=== PATIENT | male | born 1940 | race Caucasian/White ===

== ENCOUNTER → 2016-11-03 | Outpatient (CLI) | payer MEDICARE ==
[~2016-11-03] MED LIST: ABILIFY; ARIP5TAB13 PO; ASP325TEC PO; ASPI-587 PO; CARB1TAB17 PO; CARB1TAB5 PO; CEFD300C PO; CITA20TA12 PO; CITA20TA4 PO; CLOB15CR2 TP; CYAN100053 IM; CYANOCOBALAMIN; EXELON PATCH TD; GLIP10TA13 PO; GLIP5TAB13 PO; GLIP5TAB26 PO; HYDR25SU5 PR; INSR1U SC; INSU100V5 SQ; LEVE1U SQ; LEVO750T24 PO; LISI-594 PO; LORA1TAB PO; MAG30ORA2 PO; MAGN400O7 PO; MENT118G TP; MOME15OI2 TP; MOME45CR19 TOP; MTF500T PO; ONDN4T PO; PANT40TA2 PO; PANT40TA3 PO; POTA10CA43 PO; Prednisone PO; SINEMET; TAMS0.4C2 PO; TMSL.4C PO; TR1C15 TOP; TR1C15 TP; TRIA15CR TP; VENL150C98 PO; VENL75CA PO; WALKER; [UNRECOGNIZED DRUG - OTHER] TD; milk of magnesia PO
--- OUTSIDE RECORDS SUMMARY | 2016-11-03 17:30 | XMS REPORT | Continuity of Care Document ---
Author Author [facility] Organization [facility] Address Unknown Phone Unavailable Care Team Providers Care Autism Specialist Name Role Phone RickyRafael funk PCP [phone] Source Comments Some departments are not documenting in the electronic medical record. If you do not see the information that you expected, contact Release of Information in the Health Information Management department at [phone] for further assistance in locating additional records.[facility] Active Allergies and Adverse Reactions No Known Allergies Current Medications Prescription Sig. Disp. Refills Start End Date Status Date tamsulosin (FLOMAX) 0.4 Take 0.4 mg by mouth Active mg capsule daily. aspirin 325 mg tablet Take 325 mg by mouth Active daily. citalopram (CELEXA) 20 mg Take 20 mg by mouth Active tablet daily. lisinopril (PRINIVIL; Take 5 mg by mouth daily. Active ZESTRIL) 5 mg tablet insulin detemir(+) Inject 10 Units into Active (LEVEMIR) 100 unit/mL area(s) as directed soln daily. other medication 1 Dose. Psorcin cream to Active psorisis daily Active Problems Problem Noted Date Cellulitis 07/08/2010 Acute kidney injury (nontraumatic) (HCC) 07/08/2010 Psoriasis 07/08/2010 Immunizations Name Dates Previously Given Next Due FLU VACCINE >3YO 07/04/2010 (Preservative Free) Pneumococcal Vaccine 07/04/2010 (23-Rhonda Adult) Social History Tobacco Use Types Packs/Day Years Used Date Former Smoker Cigarettes 2 Quit: 02/19/2009 Smokeless Tobacco: Never Used Alcohol Use Drinks/Week oz/Week Comments No Last Filed Vital Signs Vital Sign Reading Time Taken Blood Pressure 123/68 03/03/2014 8:28 AM CDT Pulse 65 03/03/2014 8:28 AM CDT Temperature 36.8 C (98.2 F) 07/08/2010 12:00 PM CDT Respiratory Rate - - Height 1.829 m (6') 03/03/2014 8:28 AM CDT Weight 81.647 kg (180 lb) 03/03/2014 8:28 AM CDT Body Mass Index 24.41 03/03/2014 8:28 AM CDT Oxygen Saturation 94% 07/08/2010 12:00 PM CDT Plan of Care Health Maintenance Due Date Last Done Comments Physical (Comprehensive) 02/04/1947 Exam Pertussis Vaccine 02/04/1952 Tetanus Vaccine 1958 Colorectal Cancer 1991 Screening Shingles Vaccine 2001 Prevnar/Pneumovax (#2) 07/04/2011 07/04/2010 Influenza Vaccine 05/31/2016 07/04/2010 Results from Last 3 Months Not on file
[2016-11-03 17:57] LABS: BILIRUBIN,URINE NEGATIVE (NEGATIVE); KETONES,URINE NEGATIVE (NEGATIVE); LEUKOCYTE ESTERASE ,URINE NEGATIVE (NEGATIVE); NITRITE,URINE NEGATIVE (NEGATIVE); PH,URINE 6 (5-9); PROTEIN,URINE NEGATIVE (NEGATIVE); UROBILINOGEN,URINE NORMAL (NORMAL)
[2016-11-03 18:11] LABS: SQUAMOUS EPITHELIAL CELL,UR RARE /HPF
== END ==
PROVIDERS: ATTEND Family Medicine
DX: N18.9 Chronic kidney disease, unspecified (principal)
CPT/HCPCS: 81000

== ENCOUNTER 2017-04-26 14:45 | Emergency (ER) | payer MEDICARE ==
[~2017-04-26] VITALS: Ht 182.9 cm; Wt 81.6 kg
[2017-04-26] MEDS ORDERED: LIDOCAINE UROJET 2% GEL 10 ML PKG TOP ONE (15:00)
[2017-04-26 15:15] LABS: BASOPHILS # (AUTO) 0.1 10^3/uL (0.0-0.1); BASOPHILS % (AUTO) 0 % (0-10); EOSINOPHILS # (AUTO) 0.1 10^3/uL (0.0-0.3); EOSINOPHILS % (AUTO) 0 % (0-10); LYMPHOCYTES # (AUTO) 1.6 X 10^3 (1.0-4.0); LYMPHOCYTES % (AUTO) 7 % (12-44); MEAN CORPUSCULAR HEMOGLOBIN 28 PG (25-34); MEAN CORPUSCULAR HGB CONC 32 G/DL (32-36); MEAN CORPUSCULAR VOLUME 87 FL (80-99); MEAN PLATELET VOLUME 9.7 FL (7.4-10.4); MONOCYTES % (AUTO) 13 % (0-12); NEUTROPHILS # (AUTO) 18.1 X 10^3 (1.8-7.8); NEUTROPHILS % (AUTO) 79 % (42-75); PLATELET COUNT 417 10^3/uL (130-400); RED BLOOD COUNT 5.17 10^6/uL (4.35-5.85); RED CELL DISTRIBUTION WIDTH 16.3 % (10.0-14.5); WHITE BLOOD COUNT 22.8 10^3/uL (4.3-11.0)
[2017-04-26 15:26] LABS: BILIRUBIN,URINE NEGATIVE (NEGATIVE); KETONES,URINE 1+ (NEGATIVE); LEUKOCYTE ESTERASE ,URINE 3+ (NEGATIVE); NITRITE,URINE NEGATIVE (NEGATIVE); PH,URINE 8 (5-9); PROTEIN,URINE 4+ (NEGATIVE); UROBILINOGEN,URINE NORMAL (NORMAL)
[2017-04-26] MEDS ORDERED: cefTRIAXone INJECTION 1,000 MG in NS (IVPB) 50 ML IV ONE (15:30)
[2017-04-26 15:32] LABS: ANION GAP 8 MMOL/L (5-14); BLOOD UREA NITROGEN 16 MG/DL (7-18); BUN/CREATININE RATIO 14; CALCIUM 9.4 MG/DL (8.5-10.1); CARBON DIOXIDE 27 MMOL/L (21-32); CHLORIDE 100 MMOL/L (98-107); CREATININE SERUM 1.11 MG/DL (0.60-1.30); GFR ESTIMATED > 60; GLUCOSE 292 MG/DL (70-105); POTASSIUM 4.1 MMOL/L (3.6-5.0); SODIUM 135 MMOL/L (135-145)
--- NOTE | 2017-04-26 15:33 | ED GU-Male ---
General Chief Complaint: -Male Stated Complaint: URINARY PROBLEMS Nursing Triage Note: BROUGHT HERE FROM [facility] AFTER STAFF NOTICING BLOOD CLOTS WHEN HE PEED. Source: patient, [facility] records Exam Limitations: no limitations History of Present Illness Time seen by provider: 15:31 Initial Comments 77-year-old male patient of Dr. Colin presents to the emergency room for [facility] with reports of blood clots noted in his urine by [facility] staff. No fevers chills or complaints of pain. This just began today. Timing/Duration: constant Severity/Quality: moderate Radiation: none Activities at Onset: none Prior Genitourinary Problems: none Associated Symptoms: dysuria, No fever/chills, No nausea/vomiting Allergies and Home Medications Allergies Coded Allergies: No Known Drug Allergies (Verified , 01/19/16) Home Medications Carbidopa/Levodopa 1 Each Tablet, 1 TAB PO BID, (Reported) Cyanocobalamin 1,000 Mcg/Ml Vial, 1,000 MCG IM MONTHLY , (Reported) RECEIVES ON THE OF EACH MONTH Glipizide 5 Mg Tablet, 5 MG PO DAILY, (Reported) Mag Hydrox/Al Hydrox/Simeth 30 Ml Oral.susp, 30 ML PO Q6H PRN for STOMACH UPSET, (Reported) Magnesium Hydroxide 400 Mg/5 Ml Oral.susp, 30 ML PO DAILY PRN for CONSTIPATION, (Reported) Mometasone Furoate 45 Gm Cream..g., TOP BID, (Reported) APPLY TO FACE, ELBOWS, BUTTOCKS EVERY SHIFT Pantoprazole Sodium 40 Mg Tablet.dr, 40 MG PO DAILY, (Reported) Tamsulosin HCl 0.4 Mg Cap.er.24h, 0.4 MG PO HS, (Reported) Triamcinolone Acet 15 Gm Oint, TP BID PRN for DRY SKIN, (Reported) Venlafaxine HCl 37.5 Mg Cap.er.24h, 37.5 MG PO DAILY, (Reported) Constitutional: see HPI, No chills, No fever EENTM: see HPI Respiratory: no symptoms reported Cardiovascular: no symptoms reported Genitourinary: see HPI, hematuria Musculoskeletal: no symptoms reported Skin: no symptoms reported Psychiatric/Neurological: No Symptoms Reported Endocrine: No Symptoms Reported Past Josvpwe-Bramec-Gpsdyd Hx Patient Social History Alcohol Use: Denies Use Recreational Drug Use: No Smoking Status: Unknown if Ever Smoked Former Smoker/When Quit: Sep 30, 2009 Recent Foreign Travel: No Contact w/Someone Who Travel: No Recent Infectious Disease Expo: No Recent Hopitalizations: Yes (PNEUMONIA) Immunizations Up To Date Tetanus Booster (TDap): More than 5yrs Date of Pneumonia Vaccine: Jan 07, 2010 Date of Influenza Vaccine: Jun 16, 2015 Seasonal Allergies Seasonal Allergies: No Surgeries HX Surgeries: Yes (LEFT KNEE SURGERY) Surgeries: Orthopedic, Tonsillectomy Respiratory Hx Respiratory Disorders: No Cardiovascular Hx Cardiac Disorders: Yes Cardiac Disorders: Coronary Artery Disease, Heart Attack, Hypertension Neurological Hx Neurological Disorders: Yes (HYDROCEPHALIS) Neurological Disorders: Dementia, Parkinson's Disease Reproductive System Hx Reproductive Disorders: No Genitourinary Hx Genitourinary Disorders: Yes (CHRONIC KIDNEY DISEASE; PROSTATE) Genitourinary Disorders: Prostate Problems, Renal Failure Gastrointestinal Hx Gastrointestinal Disorders: Yes (CHRONIC CONSTIPATION) Gastrointestinal Disorders: Gastrointestinal Bleed, Chronic Constipation Musculoskeletal Hx Musculoskeletal Disorders: Yes (POOR MOBILITY-ESSENTIALLY NON-AMBULATORY; GENERALIZED WEAKNESS; FALLS) Musculoskeletal Disorders: Arthritis, Contracture Endocrine Hx Endocrine Disorders: Yes Endocrine Disorders: Diabetes, Insulin dep HEENT HX ENT Disorders: Yes HEENT Disorders: Cataract Loss of Vision: Denies Hearing Impairment: Denies Cancer Hx Cancer: Yes Cancer: Prostate Psychosocial Hx Psychiatric Problems: Yes Behavioral Health Disorders: Depression Integumentary HX Skin/Integumentary Disorder: Yes Skin/Integumentary Disorders: Psoriasis Blood Transfusions Hx Blood Disorders: No Family Medical History Significant Family History: No Pertinent Family Hx Family Medial History: Cataract 03 FATHER Family history: Cardiovascular disease 09 BROTHER (OPEN HEART SURGERY AND UNSURE WHAT HE FROM OTHER THEN HEART PROBLEMS) Family history: Hypertension 03 FATHER No Family History of: Abdominal aortic aneurysm Steven's disease Alcoholism Aphasia Cancer Cancer of colon Chest pain Congenital heart disease Congestive heart failure Cystic fibrosis Dementia Dysphagia Family history: Allergy Family history: Alzheimer's disease Family history: Arthritis Family history: Asthma Family history: Breast disease Family history: Coronary thrombosis Family history: Diabetes mellitus Family history: Gastrointestinal disease Family history: Glaucoma Family history: Osteoporosis Family history: Thyroid disorder Headache Hearing loss Heart disease Hereditary disease History of - anemia History of - disorder History of - respiratory disease History of drug abuse Human immunodeficiency virus (HIV) seropositivity Hypercholesterolemia Infertile Kidney disease Malignant neoplasm of lung Myocardial infarction Parkinson's disease Prostate cancer Psychotic disorder Seizure disorder Stroke Tuberculosis Visual impairment Physical Exam Vital Signs Vital Sign - Last 12Hours 04/26/17 15:00 Temp 98.0 Pulse 102 Resp 16 B/P (MAP) 141/84 Pulse Ox 96 Capillary Refill : Less Than 3 Seconds General Appearance: WD/WN, no apparent distress HEENT: PERRL/EOMI, normal ENT inspection Neck: non-tender, full range of motion Cardiovascular: regular rate, rhythm, no murmur Respiratory: normal breath sounds, no respiratory distress, no accessory muscle use Gastrointestinal: normal bowel sounds, non tender Extremities: normal range of motion, non-tender Neurologic/Psychiatric: alert, normal mood/affect, oriented x 3 Skin: normal color, warm/dry Comments Horne catheter was inserted by me 18 [address]. This resulted in drainage of bloody urine without obvious clot. I then hand irrigated this with a total of 150 mL of normal saline with aspiration of a few clots and otherwise bloody- appearing cloudy urine. Focused Exam Lactic Acid Level Laboratory Tests Test 04/26/17 15:35 Progress/Results/Core Measures Results/Orders Lab Results Laboratory Tests Test 04/26/17 15:05 04/26/17 15:19 04/26/17 15:35 04/26/17 15:50 Range/Units White Blood Count 22.8 H 4.3-11.0 10^3/uL Red Blood Count 5.17 4.35-5.85 10^6/uL Hemoglobin 14.5 13.3-17.7 G/DL Hematocrit 45 40-54 % Mean Corpuscular Volume 87 80-99 FL Mean Corpuscular Hemoglobin 28 25-34 PG Mean Corpuscular Hemoglobin Concent 32 32-36 G/DL Red Cell Distribution Width 16.3 H 10.0-14.5 % Platelet Count 417 H 130-400 10^3/uL Mean Platelet Volume 9.7 7.4-10.4 FL Neutrophils (%) (Auto) 79 H 42-75 % Lymphocytes (%) (Auto) 7 L 12-44 % Monocytes (%) (Auto) 13 H 0-12 % Eosinophils (%) (Auto) 0 0-10 % Basophils (%) (Auto) 0 0-10 % Neutrophils # (Auto) 18.1 H 1.8-7.8 X 10^3 Lymphocytes # (Auto) 1.6 1.0-4.0 X 10^3 Monocytes # (Auto) 3.0 H 0.0-1.0 X 10^3 Eosinophils # (Auto) 0.1 0.0-0.3 10^3/uL Basophils # (Auto) 0.1 0.0-0.1 10^3/uL Neutrophils % (Manual) 83 % Lymphocytes % (Manual) 13 % Monocytes % (Manual) 1 % Eosinophils % (Manual) 0 % Basophils % (Manual) 0 % Band Neutrophils 3 % Blood Morphology Comment NORMAL Sodium Level 135 135-145 MMOL/L Potassium Level 4.1 3.6-5.0 MMOL/L Chloride Level 100 98-107 MMOL/L Carbon Dioxide Level 27 21-32 MMOL/L Anion Gap 8 5-14 MMOL/L Blood Urea Nitrogen 16 7-18 MG/DL Creatinine 1.11 0.60-1.30 MG/DL Estimat Glomerular Filtration Rate > 60 BUN/Creatinine Ratio 14 Glucose Level 292 H 70-105 MG/DL Calcium Level 9.4 8.5-10.1 MG/DL Urine Color RED H Urine Clarity BLOODY H Urine pH 8 5-9 Urine Specific [place] 1.010 L 1.016-1.022 Urine Protein 4+ NEGATIVE Urine Glucose (UA) NEGATIVE NEGATIVE Urine Ketones 1+ H NEGATIVE Urine Nitrite NEGATIVE NEGATIVE Urine Bilirubin NEGATIVE NEGATIVE Urine Urobilinogen NORMAL NORMAL MG/DL Urine Leukocyte Esterase 3+ H NEGATIVE Urine RBC (Auto) 5+ H NEGATIVE Urine RBC TNTC H /HPF Urine WBC TNTC H /HPF Urine Crystals NONE /LPF Urine Bacteria LARGE H /HPF Urine Casts NONE /LPF Urine Mucus NEGATIVE /LPF Urine Culture Indicated YES My Orders Orders - MARIJA PEREZ APRN Cbc With Automated Diff (04/26/17 14:55) Basic Metabolic Panel (04/26/17 14:55) Protime With Inr (04/26/17 14:55) Partial Thromboplastin Time (04/26/17 14:55) Lidocaine 2% (Urojet) (Xylocaine Urojet) (04/26/17 15:00) Horne Cath (04/26/17 14:55) Ua Culture If Indicated (04/26/17 15:10) Manual Differential (04/26/17 15:05) Blood Culture (04/26/17 15:29) Lactic Acid Analyzer (04/26/17 15:29) Ceftriaxone Injection (Rocephin Injectio (04/26/17 15:30) Urine Culture (04/26/17 15:19) Levofloxacin Tablet (Levaquin Tablet) (04/26/17 16:00) Medications Given in ED Current Medications Medications Dose Ordered Sig/Nikhil Route Start Time Stop Time Status Last Admin Dose Admin Ceftriaxone Sodium 1000 mg/ Sodium Chloride 50 ml @ 100 mls/hr ONCE ONCE IV 04/26/17 15:30 04/26/17 15:59 DC 04/26/17 15:54 100 MLS/HR Lidocaine HCl 10 ml ONCE ONCE TOP 04/26/17 15:00 04/26/17 15:01 DC 04/26/17 15:13 10 ML Vital Signs/I&O Vital Sign - Last 12Hours 04/26/17 15:00 Temp 98.0 Pulse 102 Resp 16 B/P (MAP) 141/84 Pulse Ox 96 Blood Pressure Mean: 103 Departure Communication Time/Spoke to Admitting Phy: 15:57 Communication I discussed the case with Dr. Smith (finance lecturer hospitalist). We will send the patient back to the [place] [facility] on Levaquin 500 milligrams po daily. I did reiterate to Dr. Smith that the patient does meet sepsis criteria with a heart rate of 102, white count 22,000 in addition to to confirmed source of infection. Still would like the patient sent back to the [place] [facility] on oral Levaquin as the patient is eating and drinking well and PT states that he does not feel that bad. Historically he has grown out Escherichia coli sensitive to Cipro and Rocephin. Progress Notes Patient states that he is a DO NOT RESUSCITATE status and if his heart stops or if he stops breathing he does not want to be put on a breathing machine or have CPR done. Impression Impression: Primary Impression: Urinary tract infection Additional Impression: Sepsis Disposition: SNF Condition: Stable Decision to Admit Reason: Admit from ER (General) Decision to Admit/Date: Apr 26, 2017 Time/Decision to Admit Time: 15:33 Departure-Patient Inst. Decision time for Depature: 16:00 Referrals: ELYSIA COLIN MD (PCP/Family) Primary Care Physician Patient Instructions: Urinary Tract Infection, Adult (DC) Add. Discharge Instructions: 1. Antibiotics as directed 2. Return to ER for any worsening such as refusing to eat or drink, fevers, vomiting or other concerns 3. Follow-up with Dr. Colin next week. Keep the Horne catheter in place for the next 7 days. All discharge instructions reviewed with patient and/or family. Voiced understanding. Scripts Levofloxacin (Levaquin) 500 Mg Tablet 500 MG PO DAILY, #7 TAB Prov: MARIJA PEREZ APRN 04/26/17 Copy Copies To 1: ELYSIA COLIN MD, PETER J APRN Apr 26, 2017 15:33
[2017-04-26 15:35] LABS: BAND NEUTROPHILS 3 %; BASOPHILS % (MANUAL) 0 %; EOSINOPHILS % (MANUAL) 0 %; LYMPHOCYTES % (MANUAL) 13 %; NEUTROPHILS % (MANUAL) 83 %
[2017-04-26 15:50] LABS: WBC,URINE TNTC /HPF
[2017-04-26] MEDS ORDERED: LEVOFLOXACIN 500 MG TAB (LEVAQUIN) PO ONE (16:00)
[2017-04-26] MEDS ORDERED: VENL-48 PO (16:10)
[2017-04-26] MEDS ORDERED: CARB1TAB19 PO (16:10)
[2017-04-26] MEDS ORDERED: TR1O15 TP (16:10)
[2017-04-26 16:13] LABS: INR 1.2 (0.8-1.4); PROTHROMBIN TIME PATIENT 14.7 SEC (12.2-14.7)
[2017-04-26] MEDS ORDERED: LEVO500T2 PO (16:15)
[2017-04-26 16:49] VITALS: BP 145/71
== END 2017-04-26 16:49 ==
LOC: EDUNIT# 14:45 → ER 14:46
DX: A41.9 Sepsis, unspecified organism (principal); N39.0 Urinary tract infection, site not specified; E11.9 Type 2 diabetes mellitus without complications; F32.9 Major depressive disorder, single episode, unspecified; M19.90 Unspecified osteoarthritis, unspecified site; K59.09 Other constipation; I12.9 Hypertensive chronic kidney disease with stage 1 through stage 4 chronic kidney disease, or unspecified chronic kidney disease; N18.9 Chronic kidney disease, unspecified; G20 Parkinson's disease; I25.10 Atherosclerotic heart disease of native coronary artery without angina pectoris; I25.2 Old myocardial infarction; F03.90 Unspecified dementia, unspecified severity, without behavioral disturbance, psychotic disturbance, mood disturbance, and anxiety; Z87.891 Personal history of nicotine dependence; Z90.89 Acquired absence of other organs; Z98.890 Other specified postprocedural states
CPT/HCPCS: 36415; 51702; 80048; 81000; 83605; 85007; 85027; 85610; 85730; 87040; 87077; 87088; 87186; 96365

== ENCOUNTER → 2017-06-22 | Outpatient (CLI) | payer MEDICARE ==
[~2017-06-22] MED LIST changes: +CARB1TAB19 PO; +LEVO500T2 PO; +TR1O15 TP; +VENL-48 PO
[2017-06-22 10:13] LABS: BILIRUBIN,URINE NEGATIVE (NEGATIVE); KETONES,URINE NEGATIVE (NEGATIVE); LEUKOCYTE ESTERASE ,URINE 3+ (NEGATIVE); NITRITE,URINE NEGATIVE (NEGATIVE); PH,URINE 5 (5-9); PROTEIN,URINE 3+ (NEGATIVE); UROBILINOGEN,URINE NORMAL (NORMAL)
[2017-06-22 10:28] LABS: WBC,URINE TNTC /HPF
== END ==
PROVIDERS: ATTEND Family Medicine
DX: N18.9 Chronic kidney disease, unspecified (principal); M62.81 Muscle weakness (generalized); R26.2 Difficulty in walking, not elsewhere classified; Z91.81 History of falling; R82.99 Other abnormal findings in urine
CPT/HCPCS: 81000; 87077; 87088; 87186

== ENCOUNTER 2018-04-12 22:21 | Inpatient (IN) | payer MEDICARE ==
[~2018-04-12] VITALS: Ht 177.8 cm; Wt 80.5 kg
[~2018-04-12 22:21] MED LIST changes: -MOME45CR19 TOP; +MOME45CR19 TP
--- NOTE | 2018-04-12 22:33 | ED Respiratory ---
General Stated Complaint: FEVER Source: patient, EMS Exam Limitations: no limitations (MARILEE KAMARA) History of Present Illness Date Seen by Provider: Apr 12, 2018 Time Seen by Provider: 22:28 Initial Comments Patient is a 78-year-old male who is brought to the emergency room by [facility]. EMS reports that they were dispatched for low oxygen saturation and high fever, the residential reported to EMS that normally he is active and ambulatory on his own but this evening he started to become lethargic, have oxygen saturations in the mid 80s, productive cough and 102 fever. Timing/Duration: this evening Prior Episodes/Possible Cause: no prior episodes Modifying Factors: Improves With Oxygen Associated Symptoms: cough, fever/chills, shortness of breath EMS started 1 L of normal saline in route. His oxygen saturations improved with 2 L nasal cannula. The residential gave an unknown amount of Tylenol prior to EMSs arrival. (MARILEE KAMARA) Allergies and Home Medications Allergies Coded Allergies: No Known Drug Allergies (Verified , 01/19/16) Home Medications Carbidopa/Levodopa 1 Each Tablet, 1 TAB PO BID, (Reported) Cyanocobalamin 1,000 Mcg/Ml Vial, 1,000 MCG IM MONTHLY , (Reported) RECEIVES ON THE OF EACH MONTH Glipizide 5 Mg Tablet, 5 MG PO DAILY, (Reported) Levofloxacin 500 Mg Tablet, 500 MG PO DAILY Prescribed by: MARIJA PEREZ on 04/26/17 1615 Mag Hydrox/Al Hydrox/Simeth 30 Ml Oral.susp, 30 ML PO Q6H PRN for STOMACH UPSET, (Reported) Magnesium Hydroxide 400 Mg/5 Ml Oral.susp, 30 ML PO DAILY PRN for CONSTIPATION, (Reported) Mometasone Furoate 45 Gm Cream..g., TOP BID, (Reported) APPLY TO FACE, ELBOWS, BUTTOCKS EVERY SHIFT Pantoprazole Sodium 40 Mg Tablet.dr, 40 MG PO DAILY, (Reported) Tamsulosin HCl 0.4 Mg Cap.er.24h, 0.4 MG PO HS, (Reported) Triamcinolone Acet 15 Gm Oint, TP BID PRN for DRY SKIN, (Reported) Venlafaxine HCl 37.5 Mg Cap.er.24h, 37.5 MG PO DAILY, (Reported) Patient Home Medication List Home Medication List Reviewed: Yes (MARILEE KAMARA) Review of Systems Constitutional: see HPI, fever, malaise, weakness EENTM: see HPI; No ear discharge, No hearing loss, No ear pain Respiratory: see HPI, cough (productive cough), short of breath Cardiovascular: see HPI Gastrointestinal: no symptoms reported Genitourinary: see HPI; No decreased output, No discharge Musculoskeletal: see HPI; No back pain, No gout, No joint pain Skin: see HPI; No change in color, No change in hair/nails Psychiatric/Neurological: See HPI, Weakness Hematologic/Lymphatic: See HPI; Denies Anemia, Denies Blood Clots Immunological/Allergic: see HPI; denies food allergy, denies grass allergy ( MARILEE KAMARA) All Other Systems Reviewed Negative Unless Noted: Yes (MARILEE KAMARA) Past Kbhiqdc-Urruub-Xlgskb Hx Past Med/Social Hx: Reviewed Nursing Past Med/Soc Hx (MARILEE KAMARA) Patient Social History Recent Foreign Travel: No Contact w/Someone Who Travel: No Recent Hopitalizations: Yes (PNEUMONIA) (MARILEE KAMARA) Immunizations Up To Date Tetanus Booster (TDap): More than 5yrs Date of Pneumonia Vaccine: Jan 07, 2010 Date of Influenza Vaccine: Jun 16, 2015 (MARILEE KAMARA) Seasonal Allergies Seasonal Allergies: No (MARILEE KAMARA) Past Medical History Surgeries: Yes (LEFT KNEE SURGERY) Orthopedic, Tonsillectomy Respiratory: No Cardiac: Yes Coronary Artery Disease, Heart Attack, Hypertension Neurological: Yes (HYDROCEPHALIS) Dementia, Parkinson's Disease Reproductive Disorders: No Prostate Problems, Renal Failure Gastrointestinal: Yes (CHRONIC CONSTIPATION) Gastrointestinal Bleed, Chronic Constipation Musculoskeletal: Yes (POOR MOBILITY-ESSENTIALLY NON-AMBULATORY; GENERALIZED WEAKNESS; FALLS) Arthritis, Contracture Endocrine: Yes Diabetes, Insulin dep Cataract Loss of Vision: Denies Hearing Impairment: Denies Cancer: Yes Prostate Psychosocial: Yes Depression Integumentary: Yes Psoriasis Blood Disorders: No (MARILEE KAMARA) Family Medical History Reviewed Nursing Family Hx (MARILEE KAMARA) Cataract 03 FATHER Family history: Cardiovascular disease 09 BROTHER (OPEN HEART SURGERY AND UNSURE WHAT HE FROM OTHER THEN HEART PROBLEMS) Family history: Hypertension 03 FATHER No Family History of: Abdominal aortic aneurysm [place]'s disease Alcoholism Aphasia Cancer Cancer of colon Chest pain Congenital heart disease Congestive heart failure Cystic fibrosis Dementia Dysphagia Family history: Allergy Family history: Alzheimer's disease Family history: Arthritis Family history: Asthma Family history: Breast disease Family history: Coronary thrombosis Family history: Diabetes mellitus Family history: Gastrointestinal disease Family history: Glaucoma Family history: Osteoporosis Family history: Thyroid disorder Headache Hearing loss Heart disease Hereditary disease History of - anemia History of - disorder History of - respiratory disease History of drug abuse Human immunodeficiency virus (HIV) seropositivity Hypercholesterolemia Infertile Kidney disease Malignant neoplasm of lung Myocardial infarction Parkinson's disease Prostate cancer Psychotic disorder Seizure disorder Stroke Tuberculosis Visual impairment No Pertinent Family Hx (MARILEE KAMARA) Physical Exam Vital Signs - First Documented 04/12/18 22:27 Temp 101.4 Pulse 94 Resp 20 B/P (MAP) 133/84 (100) Pulse Ox 95 O2 Delivery Room Air O2 Flow Rate 2.00 (DIEGO LYNN MD) Capillary Refill : (MARILEE KAMARA) Height: 6'0.00" Weight: 180lbs. 0.0oz. 81.495023tv; 24.3 BMI Method:Estimated General Appearance: WD/WN, no apparent distress Eyes: Bilateral Eye Normal Inspection, Bilateral Eye PERRL, Bilateral Eye EOMI HEENT: PERRL/EOMI, normal ENT inspection Neck: non-tender, full range of motion, supple, normal inspection Respiratory: chest non-tender, no respiratory distress, no accessory muscle use , crackles (left lower lobe crackles), other (is requiring oxygen at 2 L keep oxygen saturation above 90%.) Cardiovascular: regular rate, rhythm, no edema, no gallop, no JVD, no murmur Gastrointestinal: normal bowel sounds, non tender, soft, no organomegaly, no pulsatile mass Extremities: normal range of motion, non-tender, normal inspection, no pedal edema, no calf tenderness Neurologic/Psychiatric: other (lethargic) Skin: warm/dry, other (skin is hot to touch.) Lymphatic: no adenopathy (MARILEE KAMARA) Focused Exam Lactate Level 04/12/18 22:30: Lactic Acid Level 1.59 (DIEGO LYNN MD) Lactic Acid Level Laboratory Tests Test 04/12/18 22:30 Lactic Acid Level 1.59 MMOL/L (0.50-2.00) (DIEGO LYNN MD) Progress/Results/Core Measures Suspected Sepsis SIRS Temperature: Pulse: Respiratory Rate: Laboratory Tests 04/12/18 22:30: Blood Pressure / Mean: 04/12/18 22:30: Laboratory Tests 04/12/18 22:30: (MARILEE KAMARA) Results/Orders Lab Results Laboratory Tests Test 04/12/18 22:30 04/12/18 22:58 Range/Units White Blood Count 17.5 H 4.3-11.0 10^3/uL Red Blood Count 4.70 4.35-5.85 10^6/uL Hemoglobin 13.6 13.3-17.7 G/DL Hematocrit 41 40-54 % Mean Corpuscular Volume 86 80-99 FL Mean Corpuscular Hemoglobin 29 25-34 PG Mean Corpuscular Hemoglobin Concent 34 32-36 G/DL Red Cell Distribution Width 17.7 H 10.0-14.5 % Platelet Count 314 130-400 10^3/uL Mean Platelet Volume 10.2 7.4-10.4 FL Neutrophils (%) (Auto) 70 42-75 % Lymphocytes (%) (Auto) 13 12-44 % Monocytes (%) (Auto) 15 H 0-12 % Eosinophils (%) (Auto) 1 0-10 % Basophils (%) (Auto) 0 0-10 % Neutrophils # (Auto) 12.3 H 1.8-7.8 X 10^3 Lymphocytes # (Auto) 2.3 1.0-4.0 X 10^3 Monocytes # (Auto) 2.7 H 0.0-1.0 X 10^3 Eosinophils # (Auto) 0.1 0.0-0.3 10^3/uL Basophils # (Auto) 0.1 0.0-0.1 10^3/uL Neutrophils % (Manual) 61 % Lymphocytes % (Manual) 14 % Monocytes % (Manual) 10 % Eosinophils % (Manual) 1 % Basophils % (Manual) 1 % Band Neutrophils 13 % Blood Morphology Comment NORMAL Prothrombin Time 15.0 H 12.2-14.7 SEC INR Comment 1.2 0.8-1.4 Activated Partial Thromboplast Time 38 H 24-35 SEC Sodium Level 141 135-145 MMOL/L Potassium Level 3.9 3.6-5.0 MMOL/L Chloride Level 107 98-107 MMOL/L Carbon Dioxide Level 24 21-32 MMOL/L Anion Gap 10 5-14 MMOL/L Blood Urea Nitrogen 17 7-18 MG/DL Creatinine 1.05 0.60-1.30 MG/DL Estimat Glomerular Filtration Rate > 60 BUN/Creatinine Ratio 16 Glucose Level 121 H 70-105 MG/DL Lactic Acid Level 1.59 0.50-2.00 MMOL/L Calcium Level 8.9 8.5-10.1 MG/DL Total Bilirubin 0.9 0.1-1.0 MG/DL Aspartate Amino Transf (AST/SGOT) 23 5-34 U/L Alanine Aminotransferase (ALT/SGPT) 21 0-55 U/L Alkaline Phosphatase 145 H 40-136 U/L Total Protein 7.8 6.4-8.2 GM/DL Albumin 3.6 3.2-4.5 GM/DL Urine Color YELLOW Urine Clarity CLEAR Urine pH 5 5-9 Urine Specific [place] 1.015 L 1.016-1.022 Urine Protein 2+ H NEGATIVE Urine Glucose (UA) NEGATIVE NEGATIVE Urine Ketones 1+ H NEGATIVE Urine Nitrite NEGATIVE NEGATIVE Urine Bilirubin NEGATIVE NEGATIVE Urine Urobilinogen 4 H NORMAL MG/DL Urine Leukocyte Esterase 1+ H NEGATIVE Urine RBC (Auto) 1+ H NEGATIVE Urine RBC 0-2 /HPF Urine WBC 0-2 /HPF Urine Crystals NONE /LPF Urine Bacteria NONE /HPF Urine Casts NONE /LPF Urine Mucus NEGATIVE /LPF Urine Culture Indicated NO (DIEGO LYNN MD) My Orders Orders - DIEGO LYNN MD Acetaminophen Suppository (Tylenol Suppo (04/12/18 23:30) Ns Iv 1000 Ml (Sodium Chloride 0.9%) (04/12/18 23:50) Piperacillin/Tazobactam (Zosyn Vial) (04/12/18 23:50) D5w 100 Ml Ivpb (Dextrose 5% Water Iv So (04/12/18 23:50) (DIEGO LYNN MD) Medications Given in ED Current Medications Medications Dose Ordered Sig/Nikhil Route Start Time Stop Time Status Last Admin Dose Admin Acetaminophen 650 mg ONCE ONCE WA 04/12/18 23:30 04/12/18 23:31 DC 04/12/18 23:25 650 MG Dextrose 100 ml @ STK-MED ONCE IV 04/12/18 23:50 04/12/18 23:53 DC 04/13/18 00:02 200 MLS/HR Piperacillin Sod/ Tazobactam Sod 3.375 gm STK-MED ONCE IV 04/12/18 23:50 04/12/18 23:53 DC 04/13/18 00:02 3.375 GM Sodium Chloride 1,000 ml @ ud STK-MED ONCE .ROUTE 04/12/18 23:50 04/12/18 23:53 DC 04/13/18 00:02 125 MLS/HR (DIEGO LYNN MD) Vital Signs/I&O 04/12/18 04/12/18 04/12/18 04/12/18 22:27 22:27 22:27 23:10 Temp 101.4 103.0 Pulse 94 89 Resp 20 20 B/P (MAP) 133/84 (100) 142/86 Pulse Ox 95 95 98 O2 Delivery Room Air Nasal Cannula Nasal Cannula O2 Flow Rate 2.00 04/12/18 23:25 Temp 103.0 04/13/18 00:00 Intake Total 200 ml Balance 200 ml (DIEGO LYNN MD) Vital Signs/I&O Capillary Refill : (MARILEE KAMARA) Progress Note : Progress Note Patient was seen and evaluated with Marilee Kamara APRN. I agree with above except as indicated. I agree with the plan of care. Patient is here with low oxygen saturations and fever. Typically more mobile but now more weak and not moving around much. Oxygen saturations in the mid 80s per EMS. Fever noted by both residential and EMS at around 102F. On evaluation, patient has normal heart rate and blood pressure with oxygen saturation at 96 percent on 2 L via nasal cannula. Lungs with crackles bilateral bases with left greater than right. Patient is very weak. We will do sepsis workup and order set. 2330: Zosyn 3.375 g IV. Normal saline continued at 125 mL an hour. 0010: Discussed case with Dr. Puente. Patient to be admitted for left lower lobe pneumonia. O2 saturation remains above 94 percent on 2 L via nasal cannula. Blood pressure 117/66 with heart rate of 82. No indication of severe sepsis or septic shock and no indication of high volume fluid resuscitation at this time. Admit, inpatient status. (DIEGO LYNN MD) Diagnostic Imaging Diagonstic Imaging: Xray Plain Films/CT/US/NM/MRI: chest Comments Left lower lobe infiltrates (DIEGO LYNN MD) Departure Communication (Admissions) Time/Spoke to Admitting Phy: 00:10 (DIEGO LYNN MD) Impression Primary Impression: Pneumonia Qualified Codes: J18.1 - Lobar pneumonia, unspecified organism Additional Impression: Fever Qualified Codes: R50.9 - Fever, unspecified Disposition: ADMITTED INPATIENT Condition: Stable Admissions Decision to Admit Reason: Admit from ER (General) Decision to Admit/Date: Apr 13, 2018 Time/Decision to Admit Time: 00:10 (DIEGO LYNN MD) Departure-Patient Inst. Referrals: ELYSIA JEAN MD (PCP/Family) Primary Care Physician MARILEE KAMARA Apr 12, 2018 22:33 DIEGO LYNN MD Apr 12, 2018 22:59
[2018-04-12 22:41] LABS: BASOPHILS # (AUTO) 0.1 10^3/uL (0.0-0.1); BASOPHILS % (AUTO) 0 % (0-10); EOSINOPHILS # (AUTO) 0.1 10^3/uL (0.0-0.3); EOSINOPHILS % (AUTO) 1 % (0-10); HEMATOCRIT 41 % (40-54); HEMOGLOBIN 13.6 G/DL (13.3-17.7); LYMPHOCYTES # (AUTO) 2.3 X 10^3 (1.0-4.0); LYMPHOCYTES % (AUTO) 13 % (12-44); MEAN CORPUSCULAR HEMOGLOBIN 29 PG (25-34); MEAN CORPUSCULAR HGB CONC 34 G/DL (32-36); MEAN CORPUSCULAR VOLUME 86 FL (80-99); MEAN PLATELET VOLUME 10.2 FL (7.4-10.4); MONOCYTES # (AUTO) 2.7 X 10^3 (0.0-1.0); MONOCYTES % (AUTO) 15 % (0-12); NEUTROPHILS # (AUTO) 12.3 X 10^3 (1.8-7.8); NEUTROPHILS % (AUTO) 70 % (42-75); PLATELET COUNT 314 10^3/uL (130-400); RED CELL DISTRIBUTION WIDTH 17.7 % (10.0-14.5); WHITE BLOOD COUNT 17.5 10^3/uL (4.3-11.0)
[2018-04-12 22:56] LABS: INR 1.2 (0.8-1.4)
[2018-04-12 22:57] LABS: BAND NEUTROPHILS 13 %; BASOPHILS % (MANUAL) 1 %; EOSINOPHILS % (MANUAL) 1 %; LYMPHOCYTES % (MANUAL) 14 %; MONOCYTES % (MANUAL) 10 %; NEUTROPHILS % (MANUAL) 61 %; RBC MORPH NORMAL
[2018-04-12 22:58] LABS: ALANINE AMINOTRANSFERASE 21 U/L (0-55); ALBUMIN 3.6 GM/DL (3.2-4.5); ALKALINE PHOSPHATASE 145 U/L (40-136); BILIRUBIN,TOTAL 0.9 MG/DL (0.1-1.0); BUN/CREATININE RATIO 16; CALCIUM 8.9 MG/DL (8.5-10.1); CARBON DIOXIDE 24 MMOL/L (21-32); CHLORIDE 107 MMOL/L (98-107); CREATININE SERUM 1.05 MG/DL (0.60-1.30); GFR ESTIMATED > 60; GLUCOSE 121 MG/DL (70-105); POTASSIUM 3.9 MMOL/L (3.6-5.0); SODIUM 141 MMOL/L (135-145); TOTAL PROTEIN 7.8 GM/DL (6.4-8.2)
[2018-04-12 23:05] LABS: BILIRUBIN,URINE NEGATIVE (NEGATIVE); CLARITY,URINE CLEAR; COLOR,URINE YELLOW; GLUCOSE, URINE (UA) NEGATIVE (NEGATIVE); KETONES,URINE 1+ (NEGATIVE); LEUKOCYTE ESTERASE ,URINE 1+ (NEGATIVE); NITRITE,URINE NEGATIVE (NEGATIVE); PH,URINE 5 (5-9); PROTEIN,URINE 2+ (NEGATIVE); UROBILINOGEN,URINE 4 MG/DL (NORMAL)
[2018-04-12 23:12] LABS: RBC,URINE 0-2 /HPF; WBC,URINE 0-2 /HPF
[2018-04-12] MEDS ORDERED: ACETAMINOPHEN 650 MG SUPP (TYLENOL) PR ONE (23:30)
[2018-04-12] MEDS ORDERED: NS IV 1000 ML 1,000 ML ONE (23:50)
[2018-04-12] MEDS ORDERED: PIPERACILLIN/TAZO 3.375 GM VIAL (ZOSYN) IV ONE (23:50)
[2018-04-12] MEDS ORDERED: D5W 100 ML IVPB 100 ML IV ONE (23:50)
[2018-04-13 01:59] VITALS: BP 142/86
[2018-04-13] MEDS ORDERED: RT-ALBUTEROL SULF 2.5 MG/3 ML PRE-MIX VIAL INH PRN (02:15)
[2018-04-13] MEDS ORDERED: ACETAMINOPHEN 650 MG SUPP (TYLENOL) PR PRN (03:15)
[2018-04-13] MEDS ORDERED: ACETAMINOPHEN 325 MG TABLET PO PRN (03:15)
[2018-04-13] MEDS ORDERED: VANCOMYCIN 1500 MG/NS 500 ML IVPB IV ONE ×2 (03:30)
[2018-04-13] MEDS: PIPERACILLIN/TAZOBACTAM 3.375 GM in NS (IVPB) 100 ML IV SCH ×3 (05:44→23:31)
[2018-04-13] MEDS ORDERED: VANCOMYCIN 500 MG/VIAL IV ONE (06:00)
[2018-04-13] MEDS ORDERED: VANCOMYCIN 1000 MG/VIAL ONE (06:00)
[2018-04-13] MEDS ORDERED: NS IV 500 ML 500 ML ONE (06:00)
[2018-04-13 06:17] LABS: BASOPHILS # (AUTO) 0.1 10^3/uL (0.0-0.1); BASOPHILS % (AUTO) 0 % (0-10); EOSINOPHILS # (AUTO) 0.2 10^3/uL (0.0-0.3); EOSINOPHILS % (AUTO) 1 % (0-10); HEMATOCRIT 37 % (40-54); HEMOGLOBIN 12.3 G/DL (13.3-17.7); LYMPHOCYTES # (AUTO) 1.6 X 10^3 (1.0-4.0); LYMPHOCYTES % (AUTO) 8 % (12-44); MEAN CORPUSCULAR HEMOGLOBIN 29 PG (25-34); MEAN CORPUSCULAR HGB CONC 33 G/DL (32-36); MEAN CORPUSCULAR VOLUME 87 FL (80-99); MEAN PLATELET VOLUME 10.2 FL (7.4-10.4); MONOCYTES # (AUTO) 3.2 X 10^3 (0.0-1.0); MONOCYTES % (AUTO) 16 % (0-12); NEUTROPHILS # (AUTO) 15.7 X 10^3 (1.8-7.8); NEUTROPHILS % (AUTO) 76 % (42-75); PLATELET COUNT 279 10^3/uL (130-400); RED CELL DISTRIBUTION WIDTH 17.9 % (10.0-14.5); WHITE BLOOD COUNT 20.8 10^3/uL (4.3-11.0)
[2018-04-13] MEDS: RT-ALBUTEROL SULF 2.5 MG/3 ML PRE-MIX VIAL INH SCH ×4 (07:01→19:09)
--- NOTE | 2018-04-13 08:38 | Diagnostic Imaging Report ---
INDICATION: Fever.. TECHNIQUE: Single view chest 11:16 PM. CORRELATION STUDY: 01/02/2016 FINDINGS: Heart size and mediastinum generally stable given differences in technique. Vascular is slightly increased. No significant pulmonary infiltrate. There may be minimal areas of atelectasis at the lung bases. IMPRESSION: 1. Cardiac enlargement, there appears to be some degree of vascular congestion. Dictated by: Dictated on workstation # [id number]
[2018-04-13] MEDS ORDERED: METF500T5 PO (09:18)
[2018-04-13] MEDS: NS IV 1000 ML 1,000 ML IV SCH ×2 (10:10→19:44)
--- NOTE | 2018-04-13 10:31 | History & Physical-Hospitalist ---
History of Present Illness HPI/Chief Complaint Pt is a 78yoCM with a PMH of Parkinson's, NIDDMII who [facility]. Pt remains lethargic during my exam but was more arousable per RN prior to breakfast. He is unable to provide me any details in regards to his history or HPI. All information is obtained from the records. He was found to be febrile and lethargic at his NH. EMS was called due to hypoxia and he was brought here where he was found to be febrile still. CXR revealed LLL pneumonia and he was found to meet sepsis criteria and was admitted for antibiotics. Exam Limitations: clinical condition Date Seen 04/13/18 Time Seen by Provider: 09:00 Attending Physician Chace Puente MD PCP Juan F Colin MD Referring Physician Date of Admission Apr 13, 2018 at 12:10 am Home Medications & Allergies Home Medications Reviewed patient Home Medication Reconciliation performed by pharmacy medication reconciliations digital cartographic technician and/or nursing. Patients Allergies have been reviewed. Allergies Allergies Coded Allergies No Known Drug Allergies (Verified01/19/16) Past Xmjdvgt-Jsvmrp-Cwctbr Hx Past Med/Social Hx: Reviewed Nursing Past Med/Soc Hx Patient Social History Employed/Student: retired Alcohol Use: Denies Use Recreational Drug Use: No Smoking Status: Never a Smoker Recent Foreign Travel: No Contact w/other who traveled: No Recent Hopitalizations: Yes (PNEUMONIA) Recent Infectious Disease Expo: No Immunizations Up To Date Tetanus Booster (TDap): More than 5yrs Date of Pneumonia Vaccine: Jan 07, 2010 Date of Influenza Vaccine: Jun 16, 2015 Seasonal Allergies Seasonal Allergies: No Past Medical History Surgeries: Orthopedic, Tonsillectomy Cardiac: Coronary Artery Disease, Heart Attack, Hypertension Neurological: Dementia, Parkinson's Disease Reproductive: No Genitourinary: Prostate Problems, Renal Failure Gastrointestinal: Gastrointestinal Bleed, Chronic Constipation Musculoskeletal: Arthritis, Contracture Endocrine: Diabetes, Insulin dep HEENT: Cataract Loss of Vision: Denies Hearing Impairment: Denies Cancer: Prostate Psychosocial: Depression Skin/Integumentary: Psoriasis History of Blood Disorders: No Family History Reviewed Nursing Family Hx Cataract 03 FATHER Family history: Cardiovascular disease 09 BROTHER (OPEN HEART SURGERY AND UNSURE WHAT HE FROM OTHER THEN HEART PROBLEMS) Family history: Hypertension 03 FATHER No Family History of: Abdominal aortic aneurysm [place]'s disease Alcoholism Aphasia Cancer Cancer of colon Chest pain Congenital heart disease Congestive heart failure Cystic fibrosis Dementia Dysphagia Family history: Allergy Family history: Alzheimer's disease Family history: Arthritis Family history: Asthma Family history: Breast disease Family history: Coronary thrombosis Family history: Diabetes mellitus Family history: Gastrointestinal disease Family history: Glaucoma Family history: Osteoporosis Family history: Thyroid disorder Headache Hearing loss Heart disease Hereditary disease History of - anemia History of - disorder History of - respiratory disease History of drug abuse Human immunodeficiency virus (HIV) seropositivity Hypercholesterolemia Infertile Kidney disease Malignant neoplasm of lung Myocardial infarction Parkinson's disease Prostate cancer Psychotic disorder Seizure disorder Stroke Tuberculosis Visual impairment Heart Disease Review of Systems ROS-Unable to Obtain: Due to medical condition Constitutional: see HPI Physical Exam Physical Exam Vital Signs Vital Signs - First Documented 04/15/18 04/16/18 00:35 06:54 Temp 99.4 Pulse 58 Resp 16 B/P (MAP) 101/49 (66) Pulse Ox 93 O2 Delivery Nasal Cannula O2 Flow Rate 2.00 FiO2 21 Capillary Refill : Less Than 3 Seconds Height, Weight, BMI Height: 5'10.00" Weight: 177lbs. 6.0oz. 80.974729tu; 25.5 BMI Method:Estimated General Appearance: Chronically ill, Other (somnolent) HEENT: Moist Mucous Membranes; No Scleral Icterus (L), No Scleral Icterus (R) Neck: Normal Inspection, Non Tender, Supple Respiratory: No Accessory Muscle Use, No Respiratory Distress, Crackles Cardiovascular: Regular Rate, Rhythm, No Murmur, Normal Peripheral Pulses Gastrointestinal: Normal Bowel Sounds, Non Tender, Soft Extremity: Non Tender, No Calf Tenderness, No Pedal Edema Neurologic/Psychiatric: Alert, Other (aroused to physicial stimuli but quickly fell back asleep) Skin: Normal Color, Ecchymosis (noted on arms) Results Results/Procedures Labs Patient resulted labs reviewed. Imaging: Reviewed Imaging Report Assessment/Plan Admission Diagnosis Sepsis Admission Status: Inpatient Order (span 2 midnights) Reason for Inpatient Admission: IV abx, monitoring Diagnosis/Problems Diagnosis/Problems (1) Sepsis Status: Acute Assessment & Plan: Leukocytosis with fever and PNA clinically Continue Vanc and Zosyn for now Cultures pending No evidence of severe sepsis Qualifiers: Sepsis type: sepsis due to unspecified organism Qualified Codes: A41.9 - Sepsis, unspecified organism (2) Pneumonia Status: Acute Assessment & Plan: Continue abx as above MAT protocol Qualifiers: Pneumonia type: due to unspecified organism Laterality: left Lung location: lower lobe of lung Qualified Codes: J18.1 - Lobar pneumonia, unspecified organism (3) Parkinson disease Status: Chronic Assessment & Plan: Resume home Sinemet (4) Non-insulin dependent type 2 diabetes mellitus Status: Chronic Assessment & Plan: Will hold home meds SSI A (5) Prophylactic measure Assessment & Plan: Lovenox NS at 75ml/hr Dysphagia diet Clinical Quality Measures DVT/VTE Risk/Contraindication: Risk Factor Score Per Nursin RFS Level Per Nursing on Admit: 4+=Very High CHACE PUENTE MD Apr 13, 2018 10:31
[2018-04-13] MEDS: inSUlin ASPART (NovoLOG) 1 UNIT/0.01 ML (CHARGE PER UNIT) SC SCH ×3 (11:04→21:00)
[2018-04-13] MEDS: ENOXAPARIN 40 MG/0.4 ML (LOVENOX) SYR SC SCH (11:04)
[2018-04-13 11:54] VITALS: BP 100/63
[2018-04-13] MEDS ORDERED: CLOB15CR2 TP (14:33)
[2018-04-13] MEDS ORDERED: MENT118G TP (14:33)
[2018-04-13 16:00] VITALS: BP 99/50
[2018-04-13] MEDS: VANCOMYCIN INJECTION 1,250 MG in NS (IVPB) 250 ML IV SCH (17:46)
[2018-04-13 19:56] VITALS: BP 106/53
[2018-04-14] VITALS: BP 115/59
[2018-04-14] MEDS: SINEMET 25/100 (CARBIDOPA/LEVODOPA) TAB PO SCH ×3 (00:32→20:29)
[2018-04-14] MEDS: TAMSULOSIN 0.4 MG (FLOMAX) CAP PO SCH ×2 (00:32→20:29)
--- OUTSIDE RECORDS SUMMARY | 2018-04-14 05:21 | XMS REPORT | Clinical Summary ---
Author Author [facility] Organization [facility] Address Unknown Phone Unavailable Care Team Providers Care Database Engineer Name Role Phone Rafael Colin PCP Aida Swartz RN Unavailable Unavailable Hitesh Allen MD Unavailable Ulices Carrera MD Unavailable Luis Marks MD Unavailable Source Comments Some departments are not documenting in the electronic medical record. If you do not see the information that you expected, contact Release of Information in the Health Information Management department at [phone] for further assistance in locating additional records.[facility] Allergies No Known Allergies Current Medications Prescription Sig. [...] (Preservative Free) Pneumococcal Vaccine 07/04/2010 (23-Rhonda Adult) Family History Medical History Relation Name Comments Asthma Brother Diabetes Brother Hypertension Brother Diabetes Maternal Grandfather Arthritis-osteo Mother Heart Failure Mother Relation Name Status Comments Brother (Age 65) Father (Age late 70's) Maternal Grandfather Mother (Age early 70's) Social History Tobacco Use Types Packs/Day Years Used Date Former Smoker Cigarettes 2 Quit: 02/19/2009 Smokeless Tobacco: Never Used Alcohol Use Drinks/Week oz/Week Comments No Sex Assigned at Date Recorded Not on file Last Filed Vital Signs Vital Sign Reading Time Taken Blood Pressure 123/68 03/03/2014 8:28 AM CDT Pulse 65 03/03/2014 8:28 AM CDT Temperature 36.8 C (98.2 F) 07/08/2010 12:00 PM CDT Respiratory Rate - - Oxygen Saturation 94% 07/08/2010 12:00 PM CDT Inhaled Oxygen - - Concentration Weight 81.6 kg (180 lb) 03/03/2014 8:28 AM CDT Height 182.9 cm (6') 03/03/2014 8:28 AM CDT Body Mass Index 24.41 03/03/2014 8:28 AM CDT Plan of Treatment Health Maintenance Due Date Last Done Comments PHYSICAL (COMPREHENSIVE) 02/04/1947 EXAM PERTUSSIS VACCINE 02/04/1952 TETANUS VACCINE 1958 SHINGLES RECOMBINANT 1991 VACCINE (1 of 2) PNEUMONIA (PCV13/PPSV23) 07/04/2011 07/04/2010 VACCINES (2 of 2 - PCV13) INFLUENZA VACCINE 06/30/2018 07/04/2010 Results Not on filefrom Last 3 Months
[2018-04-14] MEDS: VANCOMYCIN INJECTION 1,250 MG in NS (IVPB) 250 ML IV SCH ×2 (05:37→17:42)
--- OUTSIDE RECORDS SUMMARY | 2018-04-14 05:41 | XMS REPORT | Continuity of Care Document ---
Author Author [facility] Organization [facility] Address Unknown Phone Unavailable Allergies Active Description Code Type Severity Reaction Onset Reported/Identified Relationship to Patient Clinical Status Yes No Known Drug Allergies [id number] Drug Allergy Unknown N/A 01/19/2016 Medications There is no data. Problems Date Dx Coded Attending Type Code Diagnosis Diagnosed By 02/19/2012 Ot 250.00 02/19/2012 Ot 276.51 02/19/2012 Ot 783.21 01/14/2014 TED LAYNE, ELYSIA R Ot 041.49 01/14/2014 TED LAYNE, ELYSIA R Ot 250.02 01/14/2014 TED LAYNE, ELYSIA R Ot 311 01/14/2014 TED LAYNE, ELYSIA R Ot 331.5 01/14/2014 TED LAYNE, ELYSIA R Ot 397.0 01/14/2014 TED LAYNE, ELYSIA R Ot 424.0 01/14/2014 TED LAYNE, ELYSIA R Ot 434.91 01/14/2014 TED LAYNE, ELYSIA R Ot 435.9 01/14/2014 TED LAYNE, ELYSIA R Ot 599.0 01/14/2014 TED LAYNE, ELYSIA R Ot 696.1 01/14/2014 TED LAYNE, ELYSIA R Ot 716.90 01/14/2014 TED LAYNE, ELYSIA R Ot V15.82 01/14/2014 TED LAYNE, ELYSIA R Ot V58.67 01/18/2014 TED LAYNE, ELYSIA R Ot 250.00 01/18/2014 TED LAYNE, ELYSIA R Ot 298.9 01/18/2014 TED LAYNE, ELYSIA R Ot 311 01/18/2014 TED LAYNE, ELYSIA R Ot 331.5 01/18/2014 TED LAYNE, ELYSIA R Ot 486 01/18/2014 TED LAYNE, ELYSIA R Ot 511.9 01/18/2014 TED LAYNE, ELYSIA R Ot 696.1 01/18/2014 TED LAYNE, ELYSIA R Ot 716.90 01/18/2014 TED LAYNE, ELYSIA R Ot 780.79 01/18/2014 TED LAYNE, ELYSIA R Ot V15.82 01/18/2014 TED LAYNE, ELYSIA R Ot V15.88 01/18/2014 TED LAYNE, ELYSIA R Ot V18.0 04/08/2014 BEBETO LAYNE, SHASHA A Ot 873.42 04/08/2014 BEBETO LAYNE, SHASHA A Ot 959.01 04/08/2014 BEBETO LAYNE, SHASHA A Ot E000.8 04/08/2014 BEBETO LAYNE, SHASHA A Ot E884.4 07/08/2014 JOSUE LAYNE, CHRISTIANO E Ot 185 07/08/2014 JOSUE LAYNE, CHRISTIANO E Ot V58.0 09/17/2014 TED LAYNE, ELYSIA R Ot 250.00 09/17/2014 TED LAYNE, ELYSIA R Ot 276.51 09/17/2014 TED LAYNE, ELYSIA R Ot 294.20 09/17/2014 TED LAYNE, ELYSIA R Ot 311 09/17/2014 TED LAYNE, ELYSIA R Ot 401.9 09/17/2014 TED LAYNE, ELYSIA R Ot 486 09/17/2014 TED LAYNE, ELYSIA R Ot 494.0 09/17/2014 TED LAYNE, ELYSIA R Ot 600.00 09/17/2014 TED LAYNE, ELYSIA R Ot 696.1 09/17/2014 TED LAYNE, ELYSIA R Ot 716.90 09/17/2014 TED LAYNE, ELYSIA R Ot 787.02 09/17/2014 TED LAYNE, ELYSIA R Ot 799.02 09/17/2014 TED LAYNE, ELYSIA R Ot V15.82 09/17/2014 TED LAYNE, ELYSIA R Ot V58.67 09/27/2014 JOSUE LAYNE, CHRISTIANO E Ot 185 09/27/2014 JOSUE LAYNE, CHRISTIANO E Ot V58.0 10/07/2014 JOSUE LAYNE, CHRISTIANO E Ot 185 10/07/2014 JOSUE LAYNE, CHRISTIANO E Ot V58.0 08/10/2015 TED LAYNE, ELYSIA R Ot N39.0 12/21/2015 TED LAYNE, ELYSIA R Ot E11.9 TYPE 2 DIABETES MELLITUS WITHOUT COMPLIC 12/21/2015 TED LAYNE, ELYSIA R Ot F03.90 UNSPECIFIED DEMENTIA WITHOUT BEHAVIORAL 12/21/2015 TED LAYNE, ELYSIA R Ot F32.9 MAJOR DEPRESSIVE DISORDER, SINGLE EPISOD 12/21/2015 TED LAYNE, ELYSIA R Ot G91.9 HYDROCEPHALUS, UNSPECIFIED 12/21/2015 TED LAYNE, ELYSIA R Ot K44.9 DIAPHRAGMATIC HERNIA WITHOUT OBSTRUCTION 12/21/2015 TED LAYNE, ELYSIA R Ot K57.90 DVRTCLOS OF INTEST, PART UNSP, W/O PERF 12/21/2015 TED LAYNE, ELYSIA R Ot K92.1 MELENA 12/21/2015 TED LAYNE, ELYSIA R Ot L40.9 PSORIASIS, UNSPECIFIED 12/21/2015 TED LAYNE, ELYSIA R Ot N18.9 CHRONIC KIDNEY DISEASE, UNSPECIFIED 12/21/2015 TED LAYNE, ELYSIA R Ot N40.0 ENLARGED PROSTATE WITHOUT LOWER URINARY 12/21/2015 TED LAYNE, ELYSIA R Ot Z23 ENCOUNTER FOR IMMUNIZATION 12/28/2015 Ot 250.00 12/28/2015 Ot 250.00 12/28/2015 Ot 250.00 12/28/2015 Ot 274.9 12/28/2015 KASIA JEAN SURGICAL GARMENT ASSEMBLY SUPERVISOR Ot 250.00 12/28/2015 KASIA JEAN SURGICAL GARMENT ASSEMBLY SUPERVISOR Ot 250.00 12/28/2015 FELIPE LAYNE, JASSI A Ot 185 12/28/2015 FELIPE LAYNE, JASSI A Ot 562.10 12/28/2015 JOSUE LAYNE, CHRISTIANO E Ot 185 12/28/2015 JOSUE LAYNE, CHRISTIANO E Ot V58.0 12/28/2015 TED LAYNE, ELYSIA R Ot N39.0 01/03/2016 TED LAYNE, ELYSIA R Ot C61 01/03/2016 TED LAYNE, ELYSIA R Ot D72.829 01/03/2016 TED LAYNE, ELYSIA R Ot E11.9 01/03/2016 TED LAYNE, ELYSIA R Ot F03.90 01/03/2016 TED LAYNE, ELYSIA R Ot F32.9 01/03/2016 TED LAYNE, ELYSIA R Ot G20 01/03/2016 TED LAYNE, ELYSIA R Ot G91.9 01/03/2016 TED LAYNE, ELYSIA R Ot I12.9 01/03/2016 TED LAYNE, ELYSIA R Ot I25.10 01/03/2016 TED LAYNE, ELYSIA R Ot I25.2 01/03/2016 TED LAYNE, ELYSIA R Ot L40.9 01/03/2016 TED LAYNE, ELYSIA R Ot N18.9 01/03/2016 TED LAYNE, ELYSIA R Ot R41.82 01/03/2016 TED LAYNE, ELYSIA R Ot Z66 01/03/2016 TED LAYNE, ELYSIA R Ot Z79.4 01/03/2016 TED LAYNE, ELYSIA R Ot Z87.891 01/04/2016 TED LAYNE, ELYSIA R Ot C61 MALIGNANT NEOPLASM OF PROSTATE 01/04/2016 TED LAYNE, ELYSIA R Ot D72.829 ELEVATED WHITE BLOOD CELL COUNT, UNSPECI 01/04/2016 TED LAYNE, ELYSIA R Ot E11.9 TYPE 2 DIABETES MELLITUS WITHOUT COMPLIC 01/04/2016 TED LAYNE, ELYSIA R Ot E86.9 VOLUME DEPLETION, UNSPECIFIED 01/04/2016 TED LAYNE, ELYSIA R Ot E87.8 OTH DISORDERS OF ELECTROLYTE AND FLUID B 01/04/2016 TED LAYNE, ELYSIA R Ot F03.90 UNSPECIFIED DEMENTIA WITHOUT BEHAVIORAL 01/04/2016 TED LAYNE, ELYSIA R Ot F32.9 MAJOR DEPRESSIVE DISORDER, SINGLE EPISOD 01/04/2016 TED LAYNE, ELYSIA R Ot G20 PARKINSON'S DISEASE 01/04/2016 TED LAYNE, ELYSIA R Ot G91.9 HYDROCEPHALUS, UNSPECIFIED 01/04/2016 TED LAYNE, ELYSIA R Ot I12.9 HYPERTENSIVE CHRONIC KIDNEY DISEASE W ST 01/04/2016 TED LAYNE, ELYSIA R Ot I25.10 ATHSCL HEART DISEASE OF [place] CORONARY 01/04/2016 TED LAYNE, ELYSIA R Ot I25.2 OLD MYOCARDIAL INFARCTION 01/04/2016 TED LAYNE, ELYSIA R Ot L40.9 PSORIASIS, UNSPECIFIED 01/04/2016 ELYSIA JEAN MD R Ot N18.9 CHRONIC KIDNEY DISEASE, UNSPECIFIED 01/04/2016 ELYSIA JEAN MD R Ot R41.82 ALTERED MENTAL STATUS, UNSPECIFIED 01/04/2016 ELYSIA JEAN MD R Ot Z66 DO NOT RESUSCITATE 01/04/2016 ELYSIA JEAN MD R Ot Z79.4 CARE HOME (CURRENT) USE OF INSULIN 01/04/2016 ELYSIA JEAN MD R Ot Z87.891 PERSONAL HISTORY OF NICOTINE DEPENDENCE 01/18/2016 ELYSIA JEAN MD R Ot E11.9 TYPE 2 DIABETES MELLITUS WITHOUT COMPLIC 01/18/2016 ELYSIA JEAN MD R Ot F03.90 UNSPECIFIED DEMENTIA WITHOUT BEHAVIORAL 01/18/2016 ELYSIA JEAN MD R Ot F32.9 MAJOR DEPRESSIVE DISORDER, SINGLE EPISOD 01/18/2016 ELYSIA JEAN MD R Ot G20 PARKINSON'S DISEASE 01/18/2016 ELYSIA JEAN MD R Ot G91.9 HYDROCEPHALUS, UNSPECIFIED 01/18/2016 ELYSIA JEAN MD R Ot I12.9 HYPERTENSIVE CHRONIC KIDNEY DISEASE W ST 01/18/2016 ELYSIA JEAN MD R Ot I25.10 ATHSCL HEART DISEASE OF [place] CORONARY 01/18/2016 ELYSIA JEAN MD R Ot I25.2 OLD MYOCARDIAL INFARCTION 01/18/2016 ELYSIA JEAN MD R Ot K29.70 GASTRITIS, UNSPECIFIED, WITHOUT BLEEDING 01/18/2016 ELYSIA JEAN MD R Ot K44.9 DIAPHRAGMATIC HERNIA WITHOUT OBSTRUCTION 01/18/2016 ELYSIA JEAN MD R Ot K57.90 DVRTCLOS OF INTEST, PART UNSP, W/O PERF 01/18/2016 ELYSIA JEAN MD R Ot K92.2 GASTROINTESTINAL HEMORRHAGE, UNSPECIFIED 01/18/2016 ELYSIA JEAN MD R Ot N18.9 CHRONIC KIDNEY DISEASE, UNSPECIFIED 01/18/2016 ELYSIA JEAN MD R Ot Z66 DO NOT RESUSCITATE 01/18/2016 ELYSIA JEAN MD Ot 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 01/18/2016 ELYSIA JEAN MD R Ot Z87.891 PERSONAL HISTORY OF NICOTINE DEPENDENCE 01/18/2016 ELYSIA JEAN MD R Ot Z91.81 HISTORY OF FALLING 01/19/2016 JOSUE LAYNE, CHRISTIANO Duran Ot 185 MALIGN NEOPL PROSTATE 01/19/2016 JOSUE LAYNE, CHRISTIANO Duran Ot V58.0 ENCOUNTER FOR RADIOTHERAPY 01/19/2016 ELYSIA JEAN MD Ot E11.9 TYPE 2 DIABETES MELLITUS WITHOUT COMPLIC 01/19/2016 ELYSIA JEAN MD R Ot F03.90 UNSPECIFIED DEMENTIA WITHOUT BEHAVIORAL 01/19/2016 ELYSIA JEAN MD R Ot F32.9 MAJOR DEPRESSIVE DISORDER, SINGLE EPISOD 01/19/2016 ELYSIA JEAN MD R Ot G20 PARKINSON'S DISEASE 01/19/2016 ELYSIA JEAN MD R Ot G91.9 HYDROCEPHALUS, UNSPECIFIED 01/19/2016 ELYSIA JEAN MD Ot I12.9 HYPERTENSIVE CHRONIC KIDNEY DISEASE W ST 01/19/2016 ELYSIA JEAN MD R Ot I25.10 ATHSCL HEART DISEASE OF [place] CORONARY 01/19/2016 ELYSIA JEAN MD R Ot I25.2 OLD MYOCARDIAL INFARCTION 01/19/2016 TED LAYNE, ELYSIA R Ot K29.70 GASTRITIS, UNSPECIFIED, WITHOUT BLEEDING 01/19/2016 ELYSIA JEAN MD R Ot K44.9 DIAPHRAGMATIC HERNIA WITHOUT OBSTRUCTION 01/19/2016 ELYSIA JEAN MD R Ot K57.90 DVRTCLOS OF INTEST, PART UNSP, W/O PERF 01/19/2016 ELYSIA JEAN MD R Ot K92.2 GASTROINTESTINAL HEMORRHAGE, UNSPECIFIED 01/19/2016 ELYSIA JEAN MD R Ot N18.9 CHRONIC KIDNEY DISEASE, UNSPECIFIED 01/19/2016 ELYSIA JEAN MD R Ot Z66 DO NOT RESUSCITATE 01/19/2016 TED LAYNE, ELYSIA Devine Ot Z79.4 CARE HOME (CURRENT) USE OF INSULIN 01/19/2016 ELYSIA JEAN MD R Ot Z87.891 PERSONAL HISTORY OF NICOTINE DEPENDENCE 01/19/2016 ELYSIA JEAN MD R Ot Z91.81 HISTORY OF FALLING 01/20/2016 ELYSIA JEAN MD Ot E11.9 TYPE 2 DIABETES MELLITUS WITHOUT COMPLIC 01/20/2016 TED LAYNE, ELYSIA R Ot F02.80 DEMENTIA IN OTH DISEASES CLASSD ELSWHR W 01/20/2016 TED LAYNE, ELYSIA R Ot F03.90 UNSPECIFIED DEMENTIA WITHOUT BEHAVIORAL 01/20/2016 TED LAYNE, ELYSIA R Ot F32.9 MAJOR DEPRESSIVE DISORDER, SINGLE EPISOD 01/20/2016 ELYSIA JEAN MD R Ot G20 PARKINSON'S DISEASE 01/20/2016 ELYSIA JEAN MD R Ot G30.9 ALZHEIMER'S DISEASE, UNSPECIFIED 01/20/2016 ELYSIA JEAN MD R Ot G91.9 HYDROCEPHALUS, UNSPECIFIED 01/20/2016 ELYSIA JEAN MD R Ot I12.9 HYPERTENSIVE CHRONIC KIDNEY DISEASE W ST 01/20/2016 ELYSIA JEAN MD R Ot I25.10 ATHSCL HEART DISEASE OF [place] CORONARY 01/20/2016 TED LAYNE, ELYSIA R Ot I25.2 OLD MYOCARDIAL INFARCTION 01/20/2016 ELYSIA JEAN MD R Ot K29.70 GASTRITIS, UNSPECIFIED, WITHOUT BLEEDING 01/20/2016 ELYSIA JEAN MD R Ot K44.9 DIAPHRAGMATIC HERNIA WITHOUT OBSTRUCTION 01/20/2016 TED LAYNE, ELYSIA R Ot K57.90 DVRTCLOS OF INTEST, PART UNSP, W/O PERF 01/20/2016 TED LAYNE, ELYSIA R Ot K62.7 RADIATION PROCTITIS 01/20/2016 TED LAYNE, ELYSIA R Ot K92.2 GASTROINTESTINAL HEMORRHAGE, UNSPECIFIED 01/20/2016 ELYSIA JEAN MD Ot N18.9 CHRONIC KIDNEY DISEASE, UNSPECIFIED 01/20/2016 ELYSIA JEAN MD R Ot Z66 DO NOT RESUSCITATE 01/20/2016 TED LAYNE, ELYSIA Devine Ot Z79.4 CARE HOME (CURRENT) USE OF INSULIN 01/20/2016 TED LAYNE, ELYSIA R Ot Z87.891 PERSONAL HISTORY OF NICOTINE DEPENDENCE 01/20/2016 TED LAYNE, ELYSIA Devine Ot Z91.81 HISTORY OF FALLING 11/05/2016 ELYSIA JEAN MD Ot N18.9 CHRONIC KIDNEY DISEASE, UNSPECIFIED 11/26/2016 ELYSIA JEAN MD Ot N18.9 CHRONIC KIDNEY DISEASE, UNSPECIFIED 04/26/2017 MARIJA PEREZ APRN Ot A41.9 SEPSIS, UNSPECIFIED ORGANISM 04/26/2017 MARIJA PEREZ APRN Ot E11.9 TYPE 2 DIABETES MELLITUS WITHOUT COMPLIC 04/26/2017 MARIJA PEREZ APRN Ot F03.90 UNSPECIFIED DEMENTIA WITHOUT BEHAVIORAL 04/26/2017 MARIJA PEREZ APRN Ot F32.9 MAJOR DEPRESSIVE DISORDER, SINGLE EPISOD 04/26/2017 MARIJA PEREZ APRN Ot G20 PARKINSON'S DISEASE 04/26/2017 MARIJA PEREZ APRN Ot I12.9 HYPERTENSIVE CHRONIC KIDNEY DISEASE W ST 04/26/2017 MARIJA PEREZ APRN Ot I25.10 ATHSCL HEART DISEASE OF [place] CORONARY 04/26/2017 MARIJA PEREZ APRN Ot I25.2 OLD MYOCARDIAL INFARCTION 04/26/2017 MARIJA PEREZ APRN Ot K59.09 OTHER CONSTIPATION 04/26/2017 MARIJA PEREZ APRN Ot M19.90 UNSPECIFIED OSTEOARTHRITIS, UNSPECIFIED 04/26/2017 MARIJA PEREZ APRN Ot N18.9 CHRONIC KIDNEY DISEASE, UNSPECIFIED 04/26/2017 MARIJA PEERZ APRN Ot N39.0 URINARY TRACT INFECTION, SITE NOT SPECIF 04/26/2017 MARIJA PEREZ APRN Ot R31.9 HEMATURIA, UNSPECIFIED 04/26/2017 MARIJA PEREZ APRN Ot Z87.891 PERSONAL HISTORY OF NICOTINE DEPENDENCE 04/26/2017 MARIJA PEREZ APRN Ot Z90.89 ACQUIRED ABSENCE OF OTHER ORGANS 04/26/2017 MARIJA PEREZ APRN Ot Z98.890 OTHER SPECIFIED POSTPROCEDURAL STATES 06/26/2017 ELYSIA JEAN MD R Ot M62.81 MUSCLE WEAKNESS (GENERALIZED) 06/26/2017 ELYSIA JEAN MD R Ot N18.9 CHRONIC KIDNEY DISEASE, UNSPECIFIED 06/26/2017 ELYSIA JEAN MD Ot R26.2 DIFFICULTY IN WALKING, NOT ELSEWHERE CLA 06/26/2017 ELYSIA JEAN MD Ot R82.99 OTHER ABNORMAL FINDINGS IN URINE 06/26/2017 ELYSIA JEAN MD R Ot Z91.81 HISTORY OF FALLING 06/26/2017 ELYSIA JEAN MD R Ot M62.81 MUSCLE WEAKNESS (GENERALIZED) 06/26/2017 ELYSIA JEAN MD R Ot N18.9 CHRONIC KIDNEY DISEASE, UNSPECIFIED 06/26/2017 ELYSIA JEAN MD R Ot R26.2 DIFFICULTY IN WALKING, NOT ELSEWHERE CLA 06/26/2017 TED LAYNE ELYSIA R Ot R82.99 OTHER ABNORMAL FINDINGS IN URINE 06/26/2017 TED LAYNE ELYSIA R Ot Z91.81 HISTORY OF FALLING 07/15/2017 TED LAYNE ELYSIA R Ot M62.81 MUSCLE WEAKNESS (GENERALIZED) 07/15/2017 TED LAYNE ELYSIA R Ot N18.9 CHRONIC KIDNEY DISEASE, UNSPECIFIED 07/15/2017 TED LAYNE ELYSIA R Ot R26.2 DIFFICULTY IN WALKING, NOT ELSEWHERE CLA 07/15/2017 ELYSIA JEAN MD R Ot R82.99 OTHER ABNORMAL FINDINGS IN URINE 07/15/2017 ELYSIA JEAN MD R Ot Z91.81 HISTORY OF FALLING Procedures Code Description Performed By Performed On [id number] 01/18/2016 [id number] 01/19/2016 Results Test Result Range Complete urinalysis with reflex to culture - 11/03/16 11:45 Urine color determination YELLOW NRG Urine clarity determination CLEAR NRG Urine pH measurement by test strip 6 5-9 Specific gravity of urine by test strip 1.015 1.016- 1.022 Urine protein assay by test strip, semi-quantitative NEGATIVE NEGATIVE Urine glucose detection by automated test strip NEGATIVE NEGATIVE Erythrocytes detection in urine sediment by light microscopy NEGATIVE NEGATIVE Urine ketones detection by automated test strip NEGATIVE NEGATIVE Urine nitrite detection by test strip NEGATIVE NEGATIVE Urine total bilirubin detection by test strip NEGATIVE NEGATIVE Urine urobilinogen measurement by automated test strip (mass/volume) NORMAL NORMAL Urine leukocyte esterase detection by dipstick NEGATIVE NEGATIVE Automated urine sediment erythrocyte count by microscopy (number/high power field) NONE NRG Automated urine sediment leukocyte count by microscopy (number/high power field ) NONE NRG Bacteria detection in urine sediment by light microscopy NONE NRG Squamous epithelial cells detection in urine sediment by light microscopy RARE NRG Crystals detection in urine sediment by light microscopy NONE NRG Casts detection in urine sediment by light microscopy NONE NRG Mucus detection in urine sediment by light microscopy NEGATIVE NRG Complete urinalysis with reflex to culture NO NRG Complete blood count (CBC) with automated white blood cell (WBC) differential - 04/26/17 15:05 Blood leukocytes automated count (number/volume) 22.8 10*3/uL 4.3-11.0 Blood erythrocytes automated count (number/volume) 5.17 10*6/uL 4.35-5.85 Venous blood hemoglobin measurement (mass/volume) 14.5 g/dL 13.3-17.7 Blood hematocrit (volume fraction) 45 % 40-54 Automated erythrocyte mean corpuscular volume 87 [foz_us] 80-99 Automated erythrocyte mean corpuscular hemoglobin (mass per erythrocyte) 28 pg 25-34 Automated erythrocyte mean corpuscular hemoglobin concentration measurement ( mass/volume) 32 g/dL 32-36 Automated erythrocyte distribution width ratio 16.3 % 10.0-14.5 Automated blood platelet count (count/volume) 417 10*3/uL 130-400 Automated blood platelet mean volume measurement 9.7 [foz_us] 7.4-10.4 Automated blood neutrophils/100 leukocytes 79 % 42-75 Automated blood lymphocytes/100 leukocytes 7 % 12-44 Blood monocytes/100 leukocytes 13 % 0-12 Automated blood eosinophils/100 leukocytes 0 % 0-10 Automated blood basophils/100 leukocytes 0 % 0-10 Blood neutrophils automated count (number/volume) 18.1 10*3 1.8-7.8 Blood lymphocytes automated count (number/volume) 1.6 10*3 1.0-4.0 Blood monocytes automated count (number/volume) 3.0 10*3 0.0-1.0 Automated eosinophil count 0.1 10*3/uL 0.0-0.3 Automated blood basophil count (count/volume) 0.1 10*3/uL 0.0-0.1 Whole blood basic metabolic panel - 04/26/17 15:05 Serum or plasma sodium measurement (moles/volume) 135 mmol/L 135-145 Serum or plasma potassium measurement (moles/volume) 4.1 mmol/L 3.6-5.0 Serum or plasma chloride measurement (moles/volume) 100 mmol/L 98-107 Carbon dioxide 27 mmol/L 21-32 Serum or plasma anion gap determination (moles/volume) 8 mmol/L 5-14 Serum or plasma urea nitrogen measurement (mass/volume) 16 mg/dL 7-18 Serum or plasma creatinine measurement (mass/volume) 1.11 mg/dL 0.60-1.30 Serum or plasma urea nitrogen/creatinine mass ratio 14 NRG Serum or plasma creatinine measurement with calculation of estimated glomerular filtration rate > NRG Serum or plasma glucose measurement (mass/volume) 292 mg/dL 70-105 Serum or plasma calcium measurement (mass/volume) 9.4 mg/dL 8.5-10.1 Blood manual differential performed detection - 04/26/17 15:05 Blood monocytes/100 leukocytes 1 % NRG Manual blood segmented neutrophils/100 leukocytes 83 % NRG Blood band neutrophils/100 leukocytes 3 % NRG Manual blood lymphocytes/100 leukocytes 13 % NRG Manual eosinophils/100 leukocytes in nose 0 % NRG Manual blood basophils/100 leukocytes 0 % NRG Blood erythrocyte morphology finding identification NORMAL NRG Complete urinalysis with reflex to culture - 04/26/17 15:19 Urine color determination RED NRG Urine clarity determination BLOODY NRG Urine pH measurement by test strip 8 5-9 Specific gravity of urine by test strip 1.010 1.016- 1.022 Urine protein assay by test strip, semi-quantitative 4+ NEGATIVE Urine glucose detection by automated test strip NEGATIVE NEGATIVE Erythrocytes detection in urine sediment by light microscopy 5+ NEGATIVE Urine ketones detection by automated test strip 1+ NEGATIVE Urine nitrite detection by test strip NEGATIVE NEGATIVE Urine total bilirubin detection by test strip NEGATIVE NEGATIVE Urine urobilinogen measurement by automated test strip (mass/volume) NORMAL NORMAL Urine leukocyte esterase detection by dipstick 3+ NEGATIVE Automated urine sediment erythrocyte count by microscopy (number/high power field) [facility] NRG Automated urine sediment leukocyte count by microscopy (number/high power field ) TNT NRG Bacteria detection in urine sediment by light microscopy LARGE NRG Crystals detection in urine sediment by light microscopy NONE NRG Casts detection in urine sediment by light microscopy NONE NRG Mucus detection in urine sediment by light microscopy NEGATIVE NRG Complete urinalysis with reflex to culture YES NRG Bacterial urine culture - 04/26/17 15:19 Bacterial urine culture [id number] NRG COLONY COUNT >100,000/ML NRG FTX;REPORTABLE SENSITIVITY REPORTED 04/28/17 8:30 NR Bacterial susceptibility panel - 04/26/17 15:19 Gentamicin susceptibility test by minimum inhibitory concentration < = NRG Trimethoprim/sulfamethoxazole susceptibility test by minimum inhibitoryconcentration <= NRG Ampicillin susceptibility test by minimum inhibitory concentration < = NRG Tobramycin susceptibility test by minimum inhibitory concentration < = NRG Cefazolin susceptibility test by minimum inhibitory concentration 8 NRG Ceftriaxone susceptibility test by minimum inhibitory concentration <= NRG Ampicillin/sulbactam susceptibility test by minimum inhibitory concentration <= NRG Piperacillin/tazobactam susceptibility test by minimum inhibitory concentration <= NRG Ciprofloxacin susceptibility test by minimum inhibitory concentration <= NRG Meropenem susceptibility test by minimum inhibitory concentration < = NRG Nitrofurantoin susceptibility test by minimum inhibitory concentration 128 NRG Aztreonam susceptibility test by minimum inhibitory concentration < = NRG Blood lactic acid measurement (moles/volume) - 04/26/17 15:35 Blood lactic acid measurement (moles/volume) 2.40 mmol/L 0.50-2.00 Bacterial blood culture - 04/26/17 15:35 Bacterial blood culture NG NRG PT panel in platelet poor plasma by coagulation assay - 04/26/17 15:50 Prothrombin time (PT) in platelet poor plasma by coagulation assay 14.7 s 12.2-14.7 INR in platelet poor plasma or blood by coagulation assay 1.2 0.8-1.4 Activated partial thromboplastin time (aPTT) in platelet poor plasma bycoagulation assay - 04/26/17 15:50 Activated partial thromboplastin time (aPTT) in platelet poor plasma bycoagulation assay 34 s 24-35 Bacterial blood culture - 04/26/17 15:50 Bacterial blood culture NG NRG Complete urinalysis with reflex to culture - 06/22/17 07:34 Urine color determination YELLOW NRG Urine clarity determination VERY CLOUDY NRG Urine pH measurement by test strip 5 5-9 Specific gravity of urine by test strip 1.015 1.016- 1.022 Urine protein assay by test strip, semi-quantitative 3+ NEGATIVE Urine glucose detection by automated test strip NEGATIVE NEGATIVE Erythrocytes detection in urine sediment by light microscopy 5+ NEGATIVE Urine ketones detection by automated test strip NEGATIVE NEGATIVE Urine nitrite detection by test strip NEGATIVE NEGATIVE Urine total bilirubin detection by test strip NEGATIVE NEGATIVE Urine urobilinogen measurement by automated test strip (mass/volume) NORMAL NORMAL Urine leukocyte esterase detection by dipstick 3+ NEGATIVE Automated urine sediment erythrocyte count by microscopy (number/high power field) NONE NRG Automated urine sediment leukocyte count by microscopy (number/high power field ) TNTC NRG Bacteria detection in urine sediment by light microscopy LG NRG Crystals detection in urine sediment by light microscopy NONE NRG Casts detection in urine sediment by light microscopy NONE NRG Mucus detection in urine sediment by light microscopy SMALL NRG Complete urinalysis with reflex to culture YES NRG Bacterial urine culture - 06/22/17 07:34 Bacterial urine culture [id number] NRG COLONY COUNT <10,000 NRG FTX;REPORTABLE SENSITIVITY REPORTED 06/25/17 9:[address] [facility] Bacterial susceptibility panel - 06/22/17 07:34 Oxacillin susceptibility test by minimum inhibitory concentration > = NRG Gentamicin susceptibility test by minimum inhibitory concentration < = NRG Trimethoprim/sulfamethoxazole susceptibility test by minimum inhibitoryconcentration <= NRG Vancomycin susceptibility test by minimum inhibitory concentration < = NRG Levofloxacin susceptibility test by minimum inhibitory concentration >= NRG Rifampin susceptibility test by minimum inhibitory concentration <= NRG Tetracycline susceptibility test by minimum inhibitory concentration <= NRG Ciprofloxacin susceptibility test by minimum inhibitory concentration R [facility] Bacterial susceptibility panel - 06/22/17 07:34 Gentamicin susceptibility test by minimum inhibitory concentration R NRG Vancomycin susceptibility test by minimum inhibitory concentration 1 NRG Levofloxacin susceptibility test by minimum inhibitory concentration >= NRG Tetracycline susceptibility test by minimum inhibitory concentration >= NRG Ampicillin susceptibility test by minimum inhibitory concentration < = NRG Ciprofloxacin susceptibility test by minimum inhibitory concentration R NRG Nitrofurantoin susceptibility test by minimum inhibitory concentration <= NRG Linezolid susceptibility test by minimum inhibitory concentration [address] [facility] Bacterial susceptibility panel - 06/22/17 07:34 Oxacillin susceptibility test by minimum inhibitory concentration 0.5 NRG Gentamicin susceptibility test by minimum inhibitory concentration < = NRG Trimethoprim/sulfamethoxazole susceptibility test by minimum inhibitoryconcentration <= NRG Vancomycin susceptibility test by minimum inhibitory concentration < = NRG Levofloxacin susceptibility test by minimum inhibitory concentration 4 NRG Rifampin susceptibility test by minimum inhibitory concentration <= NRG Tetracycline susceptibility test by minimum inhibitory concentration <= NRG Ciprofloxacin susceptibility test by minimum inhibitory concentration R NRG Complete blood count (CBC) with automated white blood cell (WBC) differential - 04/12/18 22:30 Blood leukocytes automated count (number/volume) 17.5 10*3/uL 4.3-11.0 Blood erythrocytes automated count (number/volume) 4.70 10*6/uL 4.35-5.85 Venous blood hemoglobin measurement (mass/volume) 13.6 g/dL 13.3-17.7 Blood hematocrit (volume fraction) 41 % 40-54 Automated erythrocyte mean corpuscular volume 86 [foz_us] 80-99 Automated erythrocyte mean corpuscular hemoglobin (mass per erythrocyte) 29 pg 25-34 Automated erythrocyte mean corpuscular hemoglobin concentration measurement ( mass/volume) 34 g/dL 32-36 Automated erythrocyte distribution width ratio 17.7 % 10.0-14.5 Automated blood platelet count (count/volume) 314 10*3/uL 130-400 Automated blood platelet mean volume measurement 10.2 [foz_us] 7.4-10.4 Automated blood neutrophils/100 leukocytes 70 % 42-75 Automated blood lymphocytes/100 leukocytes 13 % 12-44 Blood monocytes/100 leukocytes 15 % 0-12 Automated blood eosinophils/100 leukocytes 1 % 0-10 Automated blood basophils/100 leukocytes 0 % 0-10 Blood neutrophils automated count (number/volume) 12.3 10*3 1.8-7.8 Blood lymphocytes automated count (number/volume) 2.3 10*3 1.0-4.0 Blood monocytes automated count (number/volume) 2.7 10*3 0.0-1.0 Automated eosinophil count 0.1 10*3/uL 0.0-0.3 Automated blood basophil count (count/volume) 0.1 10*3/uL 0.0-0.1 Blood lactic acid measurement (moles/volume) - 04/12/18 22:30 Blood lactic acid measurement (moles/volume) 1.59 mmol/L 0.50-2.00 PT panel in platelet poor plasma by coagulation assay - 04/12/18 22:30 Prothrombin time (PT) in platelet poor plasma by coagulation assay 15.0 s 12.2-14.7 INR in platelet poor plasma or blood by coagulation assay 1.2 0.8-1.4 Activated partial thromboplastin time (aPTT) in platelet poor plasma bycoagulation assay - 04/12/18 22:30 Activated partial thromboplastin time (aPTT) in platelet poor plasma bycoagulation assay 38 s 24-35 Blood manual differential performed detection - 04/12/18 22:30 Blood monocytes/100 leukocytes 10 % NRG Manual blood segmented neutrophils/100 leukocytes 61 % NRG Blood band neutrophils/100 leukocytes 13 % NRG Manual blood lymphocytes/100 leukocytes 14 % NRG Manual eosinophils/100 leukocytes in nose 1 % NRG Manual blood basophils/100 leukocytes 1 % [facility] Blood erythrocyte morphology finding identification NORMAL [facility] Comprehensive metabolic panel - 04/12/18 22:30 Serum or plasma sodium measurement (moles/volume) 141 mmol/L 135-145 Serum or plasma potassium measurement (moles/volume) 3.9 mmol/L 3.6-5.0 Serum or plasma chloride measurement (moles/volume) 107 mmol/L 98-107 Carbon dioxide 24 mmol/L 21-32 Serum or plasma anion gap determination (moles/volume) 10 mmol/L 5-14 Serum or plasma urea nitrogen measurement (mass/volume) 17 mg/dL 7-18 Serum or plasma creatinine measurement (mass/volume) 1.05 mg/dL 0.60-1.30 Serum or plasma urea nitrogen/creatinine mass ratio 16 NRG Serum or plasma creatinine measurement with calculation of estimated glomerular filtration rate > [facility] Serum or plasma glucose measurement (mass/volume) 121 mg/dL 70-105 Serum or plasma calcium measurement (mass/volume) 8.9 mg/dL 8.5-10.1 Serum or plasma total bilirubin measurement (mass/volume) 0.9 mg/dL 0.1-1.0 Serum or plasma alkaline phosphatase measurement (enzymatic activity/volume) 145 U/L 40-136 Serum or plasma aspartate aminotransferase measurement (enzymatic activity/ volume) 23 U/L 5-34 Serum or plasma alanine aminotransferase measurement (enzymatic activity/volume ) 21 U/L 0-55 Serum or plasma protein measurement (mass/volume) 7.8 g/dL 6.4-8.2 Serum or plasma albumin measurement (mass/volume) 3.6 g/dL 3.2-4.5 Bacterial blood culture - 04/12/18 22:30 Bacterial blood culture NG [facility] Bacterial blood culture - 04/12/18 22:52 Bacterial blood culture NG [facility] Complete urinalysis with reflex to culture - 04/12/18 22:58 Urine color determination YELLOW NR Urine clarity determination CLEAR [facility] Urine pH measurement by test strip 5 5-9 Specific gravity of urine by test strip 1.015 1.016- 1.022 Urine protein assay by test strip, semi-quantitative 2+ NEGATIVE Urine glucose detection by automated test strip NEGATIVE NEGATIVE Erythrocytes detection in urine sediment by light microscopy 1+ NEGATIVE Urine ketones detection by automated test strip 1+ NEGATIVE Urine nitrite detection by test strip NEGATIVE NEGATIVE Urine total bilirubin detection by test strip NEGATIVE NEGATIVE Urine urobilinogen measurement by automated test strip (mass/volume) 4 mg/dL NORMAL Urine leukocyte esterase detection by dipstick 1+ NEGATIVE Automated urine sediment erythrocyte count by microscopy (number/high power field) [HPF] NRG Automated urine sediment leukocyte count by microscopy (number/high power field ) [HPF] NRG Bacteria detection in urine sediment by light microscopy NONE NRG Crystals detection in urine sediment by light microscopy NONE NRG Casts detection in urine sediment by light microscopy NONE NRG Mucus detection in urine sediment by light microscopy NEGATIVE NRG Complete urinalysis with reflex to culture NO NRG Capillary blood glucose measurement by glucometer (mass/volume) - 04/13/18 05: 09 Capillary blood glucose measurement by glucometer (mass/volume) 134 mg/dL 70-110 Complete blood count (CBC) with automated white blood cell (WBC) differential - 04/13/18 05:52 Blood leukocytes automated count (number/volume) 20.8 10*3/uL 4.3-11.0 Blood erythrocytes automated count (number/volume) 4.30 10*6/uL 4.35-5.85 Venous blood hemoglobin measurement (mass/volume) 12.3 g/dL 13.3-17.7 Blood hematocrit (volume fraction) 37 % 40-54 Automated erythrocyte mean corpuscular volume 87 [foz_us] 80-99 Automated erythrocyte mean corpuscular hemoglobin (mass per erythrocyte) 29 pg 25-34 Automated erythrocyte mean corpuscular hemoglobin concentration measurement ( mass/volume) 33 g/dL 32-36 Automated erythrocyte distribution width ratio 17.9 % 10.0-14.5 Automated blood platelet count (count/volume) 279 10*3/uL 130-400 Automated blood platelet mean volume measurement 10.2 [foz_us] 7.4-10.4 Automated blood neutrophils/100 leukocytes 76 % 42-75 Automated blood lymphocytes/100 leukocytes 8 % 12-44 Blood monocytes/100 leukocytes 16 % 0-12 Automated blood eosinophils/100 leukocytes 1 % 0-10 Automated blood basophils/100 leukocytes 0 % 0-10 Blood neutrophils automated count (number/volume) 15.7 10*3 1.8-7.8 Blood lymphocytes automated count (number/volume) 1.6 10*3 1.0-4.0 Blood monocytes automated count (number/volume) 3.2 10*3 0.0-1.0 Automated eosinophil count 0.2 10*3/uL 0.0-0.3 Automated blood basophil count (count/volume) 0.1 10*3/uL 0.0-0.1 Capillary blood glucose measurement by glucometer (mass/volume) - 04/13/18 10: 54 Capillary blood glucose measurement by glucometer (mass/volume) 147 mg/dL 70-110 Capillary blood glucose measurement by glucometer (mass/volume) - 04/13/18 16: 03 Capillary blood glucose measurement by glucometer (mass/volume) 130 mg/dL 70-110 Capillary blood glucose measurement by glucometer (mass/volume) - 04/13/18 20: 53 Capillary blood glucose measurement by glucometer (mass/volume) 100 mg/dL 70-110 Encounters ACCT No. Visit Date/Time Discharge Status Pt. Type Provider Facility Loc./Unit Complaint [id number] 06/22/2017 10:02:00 06/22/2017 23:59:59 CLS Outpatient ELYSIA JEAN MD Via [facility] N18.9 M62.81 R26.2 Z91.81 [id number] 04/26/2017 14:46:00 04/26/2017 16:49:00 DIS Emergency MARIJA PEREZ APRN [facility] ER URINARY PROBLEMS [id number] 11/03/2016 17:27:00 11/03/2016 23:59:59 CLS Outpatient ELYSIA JEAN MD [facility] N18.9 [id number] 01/16/2016 16:34:00 01/20/2016 15:39:00 DIS Inpatient ELYSIA JEAN MD Via [address] [id number] 12/30/2015 07:16:00 01/04/2016 14:53:00 DIS Outpatient ELYSIA JEAN MD Via [address] [id number] 12/18/2015 16:50:00 12/21/2015 12:00:00 DIS Inpatient ELYSIA JEAN MD Via [address] [id number] 07/18/2015 16:23:00 07/18/2015 23:59:59 CLS Outpatient ELYSIA JEAN MD [facility] MLF [id number] 10/08/2014 00:35:00 10/08/2014 23:59:59 CLS Preadmit CHRISTIANO SALAS MD [facility] ONC [id number] 07/22/2014 13:55:00 10/07/2014 00:01:00 DIS Outpatient CHRISTIANO SALAS MD [facility] ONC [id number] 09/13/2014 19:55:00 09/17/2014 13:04:00 DIS Inpatient ELYSIA JEAN MD Via [address] [id number] 05/27/2014 13:47:00 07/08/2014 00:01:00 DIS Outpatient CHRISTIANO SALAS MD [facility] ONC [id number] 04/08/2014 01:32:00 04/08/2014 03:00:00 DIS Emergency BEBETO LAYNE, SHASHA Patterson [facility] ER [id number] 03/04/2014 11:35:00 03/04/2014 23:59:59 CLS Outpatient JASSI WANG MD [facility] CARD [id number] 01/15/2014 22:10:00 01/18/2014 16:45:00 DIS Inpatient ELYSIA JEAN MD Via [address] [id number] 01/07/2014 13:17:00 01/14/2014 15:55:00 DIS Inpatient ELYSIA JEAN MD Via [address] [id number] 06/19/2013 06:47:00 06/19/2013 23:59:59 CLS Outpatient KASIA JEAN [facility] LAB [id number] 03/20/2013 06:38:00 03/20/2013 23:59:59 CLS Outpatient KASIA JEAN [facility] LAB [id number] 04/12/2018 22:46:00 Document Registration [id number] 01/01/2013 06:04:00 Document Registration [id number] 12/23/2012 06:20:00 Document Registration [id number] 09/12/2012 06:42:00 Document Registration [id number] 06/16/2012 06:53:00 Document Registration [id number] 02/15/2012 20:13:00 Document Registration
[2018-04-14 05:57] LABS: BASOPHILS # (AUTO) 0.1 10^3/uL (0.0-0.1); BASOPHILS % (AUTO) 0 % (0-10); EOSINOPHILS # (AUTO) 0.3 10^3/uL (0.0-0.3); EOSINOPHILS % (AUTO) 1 % (0-10); HEMATOCRIT 34 % (40-54); HEMOGLOBIN 11.4 G/DL (13.3-17.7); LYMPHOCYTES # (AUTO) 1.7 X 10^3 (1.0-4.0); LYMPHOCYTES % (AUTO) 10 % (12-44); MEAN CORPUSCULAR HEMOGLOBIN 29 PG (25-34); MEAN CORPUSCULAR HGB CONC 33 G/DL (32-36); MEAN CORPUSCULAR VOLUME 87 FL (80-99); MEAN PLATELET VOLUME 10.2 FL (7.4-10.4); MONOCYTES % (AUTO) 11 % (0-12); NEUTROPHILS % (AUTO) 78 % (42-75); PLATELET COUNT 253 10^3/uL (130-400); RED BLOOD COUNT 3.91 10^6/uL (4.35-5.85); RED CELL DISTRIBUTION WIDTH 17.4 % (10.0-14.5); WHITE BLOOD COUNT 18.1 10^3/uL (4.3-11.0)
[2018-04-14 06:20] LABS: BUN/CREATININE RATIO 16; CALCIUM 8.3 MG/DL (8.5-10.1); CARBON DIOXIDE 18 MMOL/L (21-32); CHLORIDE 117 MMOL/L (98-107); CREATININE SERUM 1.09 MG/DL (0.60-1.30); GFR ESTIMATED > 60; GLUCOSE 110 MG/DL (70-105); POTASSIUM 3.6 MMOL/L (3.6-5.0); SODIUM 144 MMOL/L (135-145)
[2018-04-14] MEDS: RT-ALBUTEROL SULF 2.5 MG/3 ML PRE-MIX VIAL INH SCH ×4 (06:46→19:12)
[2018-04-14] MEDS: inSUlin ASPART (NovoLOG) 1 UNIT/0.01 ML (CHARGE PER UNIT) SC SCH ×4 (06:47→20:30)
[2018-04-14] MEDS: PIPERACILLIN/TAZOBACTAM 3.375 GM in NS (IVPB) 100 ML IV SCH ×3 (06:49→23:40)
[2018-04-14 08:00] VITALS: BP 109/64
--- NOTE | 2018-04-14 09:26 | Physical Therapy Evaluation ---
PT Evaluation-General Medical Diagnosis Admission Date Apr 13, 2018 at 00:10 Medical Diagnosis: LLL pneumonia/hypoxia Onset Date: Apr 13, 2018 Therapy Diagnosis Therapy Diagnosis: generalized debility/weakness Height/Weight Height (Feet): 5 Height (Inches): 10.00 Weight (Pounds): 177 Weight (Ounces): 6.0 Precautions Precautions/Isolations: Fall Prevention, Standard Precautions, Pressure Ulcer Weight Bear Status Right Lower Extremity: Right Weight Bearing/Tolerated Left Lower Extremity: Left Weight Bearing/Tolerated Referral Physician: Cindi Reason for Referral: Evaluation/Treatment Medical History Pertinent Medical History: CAD, DM, Dementia, HTN, OR, Parkinson's, Renal Insufficiency Additional Medical History noted 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 Very inappropriately verbal. 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 Strength Lower Extremities 3-/5 grossly (difficult to assess due to contractures and inability to follow simple direction) Integumentary/Posture Integumentary refer to nursing notes Bowel Incontinence: Yes Bladder Incontinence: Yes Posture kyphotic, flexed knee posture in sit and stand Neuromuscular (Tone, Coordination, Reflexes) severely diminished coordination/rigid tone due to Parkinson's Sensory Vision: Functional Hearing: Functional Sensation Right Lower Extremit: Impaired Sensation Left Lower Extremity: Impaired Transfers Functional [place] Measure 0=Not Assessed/NA 4=Minimal Assistance 1=Total Assistance 5=Supervision or Setup 2=Maximal Assistance 6=Modified [place] 3=Moderate Assistance 7=Complete [place] Transfers (B, C, W/C) (FIM): 1 Scootin Rollin Supine to/from Sit: 1 Sit to/from Stand: 1 bed t/f WC(FIM only if WC use): 1 dependent assist x 2 with all mobility with assist of HALL MANAGER to cleanse patient secondary to incontinent BM Gait Mode of Locomotion: Wheelchair Anticipated Mode of Locomotion: Wheelchair Balance Sitting Static: Poor Sitting Dynamic: Poor Standing Static: Poor Standing Dynamic: Poor Assessment/Needs 78 y.o. male, will be seen short term by skilled PT to address functional mobility. Patient will require the use of sit to stand lift for transfers for the safety of patient and staff. Rehab Potential: Guarded Post Rehab Potential-Barriers: contractures/dementia/Parkinson's PT Short Term Goals Short Term Goals Time Frame: Apr 18, 2018 Transfers (B,C,W/C) (FIM): 2 PT Plan Problem List Problem List: Activity Tolerance, Functional Strength, Safety, Balance, Gait, Transfer, Bed Mobility, ROM Treatment/Plan Treatment Plan: Continue Plan of Care Treatment Plan: Bed Mobility, Education, Functional Activity Bea, Functional Strength, Safety, Therapeutic Exercise, Transfers Treatment Duration: Apr 18, 2018 Frequency: 5 times per week Estimated Hrs Per Day: .25 hour per day Patient and/or Family Agrees t: Yes Discharge Recommendations Therapy D/C Recommendations: Custodial Placement, Shelter (TCU/NH) Time/GCodes Time In: 850 Time Out: 815 Total Billed Treatment Time: 25 Total Billed Treatment 1 visit EVHighC 25 min G Codes Necessary: ELBA De La Torre PT Apr 14, 2018 09:26
--- OUTSIDE RECORDS SUMMARY | 2018-04-14 09:27 | XMS REPORT | Clinical Summary ---
Author Author [facility] Organization [facility] Address Unknown Phone Unavailable Care Team Providers Care Columnist/Commentator Name Role Phone Rafael Colin PCP Aida Swartz RN Unavailable Unavailable Hitesh Allen MD Unavailable Ulices Carrera MD Unavailable Luis Marks MD Unavailable Source Comments Some departments are not documenting in the electronic medical record. If you do not see the information that you expected, contact Release of Information in the Health Information Management department at [phone] for further assistance in locating additional records.[facility] Allergies No Known Allergies Current Medications Prescription [...]
--- OUTSIDE RECORDS SUMMARY | 2018-04-14 09:30 | XMS REPORT | Continuity of Care Document ---
Author Author [facility] Organization [facility] Address Unknown Phone Unavailable Allergies Active Description Code Type Severity Reaction Onset Reported/Identified Relationship to Patient Clinical Status Yes No Known Drug Allergies [id number] Drug Allergy Unknown N/A 01/19/2016 Medications There [...] LAYNE, ELYSIA R Ot V15.82 01/18/2014 TED LANYE, ELYSIA R Ot V15.88 01/18/2014 TED LAYNE, [...] 250.00 12/28/2015 Ot 274.9 12/28/2015 KASIA JEAN TRANSONIC ENGINEER Ot 250.00 12/28/2015 KASIA JEAN TRANSONIC ENGINEER Ot 250.00 12/28/2015 FELIPE LAYNE, JASSI A [...] E86.9 VOLUME DEPLETION, UNSPECIFIED 01/04/2016 TED LAYNE, LEYSIA R Ot E87.8 OTH DISORDERS OF ELECTROLYTE [...] R Ot I25.10 ATHSCL HEART DISEASE OF [place] CORONARY 01/04/2016 TED LAYNE, ELYSIA R Ot I25.2 OLD MYOCARDIAL INFARCTION 01/04/2016 TED LAYNE, ELYSIA R Ot L40.9 PSORIASIS, UNSPECIFIED 01/04/2016 ELYSIA JEAN MD R Ot N18.9 CHRONIC KIDNEY DISEASE, UNSPECIFIED 01/04/2016 ELYSIA JEAN MD R Ot R41.82 ALTERED MENTAL STATUS, UNSPECIFIED 01/04/2016 ELYSIA JEAN MD R Ot Z66 DO NOT RESUSCITATE 01/04/2016 ELYSIA JEAN MD R Ot Z79.4 SNF (CURRENT) USE OF INSULIN 01/04/2016 ELYSIA JEAN [...] R Ot I25.10 ATHSCL HEART DISEASE OF [place] CORONARY 01/18/2016 ELYSIA JEAN MD R Ot [...] RESUSCITATE 01/18/2016 ELYSIA JEAN MD Ot Z79.4 TECHNOLOGY METHODOLOGY CONSULTANT (CURRENT) USE OF INSULIN 01/18/2016 ELYSIA JEAN [...] R Ot I25.10 ATHSCL HEART DISEASE OF [place] CORONARY 01/19/2016 ELYSIA JEAN MD R Ot [...] 01/19/2016 TED LAYNE, ELYSIA Devine Ot Z79.4 SNF (CURRENT) USE OF INSULIN 01/19/2016 ELYSIA JEAN [...] R Ot I25.10 ATHSCL HEART DISEASE OF [place] CORONARY 01/20/2016 TED LAYNE, ELYSIA R Ot [...] 01/20/2016 TED LAYNE, ELYSIA Devine Ot Z79.4 SNF (CURRENT) USE OF INSULIN 01/20/2016 TED LAYNE, [...] APRN Ot I25.10 ATHSCL HEART DISEASE OF [place] CORONARY 04/26/2017 MARIJA PEREZ APRN Ot I25.2 OLD MYOCARDIAL INFARCTION 04/26/2017 MARIJA PEREZ APRN Ot K59.09 OTHER CONSTIPATION 04/26/2017 MARIJA PEREZ APRN Ot M19.90 UNSPECIFIED OSTEOARTHRITIS, UNSPECIFIED 04/26/2017 MARIJA PEREZ APRN Ot N18.9 CHRONIC KIDNEY DISEASE, UNSPECIFIED 04/26/2017 MARIJA PEREZ APRN Ot N39.0 URINARY TRACT INFECTION, SITE [...] Procedures Code Description Performed By Performed On [id number] 01/18/2016 [id number] 01/19/2016 Results Test Result Range Complete urinalysis [...] erythrocyte count by microscopy (number/high power field) [facility] NRG Automated urine sediment leukocyte count by [...] culture - 04/26/17 15:19 Bacterial urine culture [id number] NRG COLONY COUNT >100,000/ML NRG FTX;REPORTABLE SENSITIVITY [...] culture - 06/22/17 07:34 Bacterial urine culture [id number] NRG COLONY COUNT <10,000 NRG FTX;REPORTABLE SENSITIVITY REPORTED 06/25/17 9:35 [facility] Bacterial susceptibility panel - 06/22/17 07:34 [...] susceptibility test by minimum inhibitory concentration R [facility] Bacterial susceptibility panel - 06/22/17 07:34 [...] susceptibility test by minimum inhibitory concentration 1 [facility] Bacterial susceptibility panel - 06/22/17 07:34 [...] NRG Manual blood basophils/100 leukocytes 1 % [facility] Blood erythrocyte morphology finding identification NORMAL [facility] Comprehensive metabolic panel - 04/12/18 22:30 [...] calculation of estimated glomerular filtration rate > [facility] Serum or plasma glucose measurement (mass/volume) [...] - 04/12/18 22:30 Bacterial blood culture NG [facility] Bacterial blood culture - 04/12/18 22:52 Bacterial blood culture NG [facility] Complete urinalysis with reflex to culture - 04/12/18 22:58 Urine color determination YELLOW NR Urine clarity determination CLEAR [facility] Urine pH measurement by test strip [...] measurement by glucometer (mass/volume) 100 mg/dL 70-110 Complete blood count (CBC) with automated white blood cell (WBC) differential - 04/14/18 05:35 Blood leukocytes automated count (number/volume) 18.1 10*3/uL 4.3-11.0 Blood erythrocytes automated count (number/volume) 3.91 10*6/uL 4.35-5.85 Venous blood hemoglobin measurement (mass/volume) 11.4 g/dL 13.3-17.7 Blood hematocrit (volume fraction) 34 % 40-54 Automated erythrocyte mean corpuscular volume 87 [foz_us] 80-99 Automated erythrocyte mean corpuscular hemoglobin (mass per erythrocyte) 29 pg 25-34 Automated erythrocyte mean corpuscular hemoglobin concentration measurement ( mass/volume) 33 g/dL 32-36 Automated erythrocyte distribution width ratio 17.4 % 10.0-14.5 Automated blood platelet count (count/volume) 253 10*3/uL 130-400 Automated blood platelet mean volume measurement 10.2 [foz_us] 7.4-10.4 Automated blood neutrophils/100 leukocytes 78 % 42-75 Automated blood lymphocytes/100 leukocytes 10 % 12-44 Blood monocytes/100 leukocytes 11 % 0-12 Automated blood eosinophils/100 leukocytes 1 % 0-10 Automated blood basophils/100 leukocytes 0 % 0-10 Blood neutrophils automated count (number/volume) 14.0 10*3 1.8-7.8 Blood lymphocytes automated count (number/volume) 1.7 10*3 1.0-4.0 Blood monocytes automated count (number/volume) 2.0 10*3 0.0-1.0 Automated eosinophil count 0.3 10*3/uL 0.0-0.3 Automated blood basophil count (count/volume) 0.1 10*3/uL 0.0-0.1 Whole blood basic metabolic panel - 04/14/18 05:35 Serum or plasma sodium measurement (moles/volume) 144 mmol/L 135-145 Serum or plasma potassium measurement (moles/volume) 3.6 mmol/L 3.6-5.0 Serum or plasma chloride measurement (moles/volume) 117 mmol/L 98-107 Carbon dioxide 18 mmol/L 21-32 Serum or plasma anion gap determination (moles/volume) 9 mmol/L 5-14 Serum or plasma urea nitrogen measurement (mass/volume) 17 mg/dL 7-18 Serum or plasma creatinine measurement (mass/volume) 1.09 mg/dL 0.60-1.30 Serum or plasma urea nitrogen/creatinine mass ratio 16 NRG Serum or plasma creatinine measurement with calculation of estimated glomerular filtration rate > NRG Serum or plasma glucose measurement (mass/volume) 110 mg/dL 70-105 Serum or plasma calcium measurement (mass/volume) 8.3 mg/dL 8.5-10.1 Capillary blood glucose measurement by glucometer (mass/volume) - 04/14/18 05: 53 Capillary blood glucose measurement by glucometer (mass/volume) 101 mg/dL 70-110 Encounters ACCT No. Visit Date/Time Discharge Status Pt. Type Provider Facility Loc./Unit Complaint [id number] 06/22/2017 10:02:00 06/22/2017 23:59:59 CLS Outpatient ELYSIA JEAN MD [facility] N18.9 M62.81 R26.2 Z91.81 [id number] 04/26/2017 14:46:00 04/26/2017 16:49:00 DIS Emergency MARIJA PEREZ APRN [facility] ER URINARY PROBLEMS [id number] 11/03/2016 17:27:00 11/03/2016 23:59:59 CLS Outpatient ELYSIA JEAN MD [facility] N18.9 [id number] 01/16/2016 16:34:00 01/20/2016 15:39:00 DIS Inpatient ELYSIA JEAN MD R [facility] 4TH [id number] 12/30/2015 07:16:00 01/04/2016 14:53:00 DIS Outpatient ELYSIA JEAN MD R Via [address] [id number] 12/18/2015 16:50:00 12/21/2015 12:00:00 DIS Inpatient ELYSIA JEAN MD R [facility] 4TH [id number] 07/18/2015 16:23:00 07/18/2015 23:59:59 CLS Outpatient ELYSIA JEAN MD R [facility] MLF [id number] 10/08/2014 00:35:00 10/08/2014 23:59:59 CLS Preadmit CHRISTIANO SALAS MD [facility] ONC [id number] 07/22/2014 13:55:00 10/07/2014 00:01:00 DIS Outpatient CHRISTIANO SALAS MD [facility] ONC [id number] 09/13/2014 19:55:00 09/17/2014 13:04:00 DIS Inpatient ELYSIA JEAN MD Via [address] [id number] 05/27/2014 13:47:00 07/08/2014 00:01:00 DIS Outpatient CHRISTIANO SALAS MD [facility] ONC [id number] 04/08/2014 01:32:00 04/08/2014 03:00:00 DIS Emergency BEBETO LAYNE, SHASHA Patterson [facility] ER [id number] 03/04/2014 11:35:00 03/04/2014 23:59:59 CLS Outpatient JASSI WANG MD [facility] CARD [id number] 01/15/2014 22:10:00 01/18/2014 16:45:00 DIS Inpatient ELYSIA JEAN MD Via [address] [id number] 01/07/2014 13:17:00 01/14/2014 15:55:00 DIS Inpatient ELYSIA JEAN MD Via [address] [id number] 06/19/2013 06:47:00 06/19/2013 23:59:59 CLS Outpatient KASIA JEAN [facility] LAB [id number] 03/20/2013 06:38:00 03/20/2013 23:59:59 CLS Outpatient KASIA JEAN [facility] [id number] 04/12/2018 22:46:00 Document Registration [id number] 01/01/2013 06:04:00 Document Registration [id number] 12/23/2012 06:20:00 Document Registration [id number] 09/12/2012 06:42:00 Document Registration [id number] 06/16/2012 06:53:00 Document Registration [id number] 02/15/2012 20:13:00 Document Registration
[2018-04-14] MEDS: ENOXAPARIN 40 MG/0.4 ML (LOVENOX) SYR SC SCH (09:54)
[2018-04-14] MEDS: NS IV 1000 ML 1,000 ML IV SCH (10:11)
--- NOTE | 2018-04-14 11:50 | Occ Therapy Progress Note ---
Therapy Progress Note OT order received. Chart reviewed. Attempted to work with pt. Pt. asleep and will not awaken for this therapist. OT attempts multiple strategies. Spoke with PT and nursing. Pt. has already been up in chair and required a lot of assistance to get up and back to bed. Will attempt evaluation later this afternoon as time allows, and as pt. is able. 1, visit 1145 PARAS ADKINS OT Apr 14, 2018 11:50
--- NOTE | 2018-04-14 14:18 | Progress Note-Hospitalist ---
Progress Note Progress Notes/Assess & Plan Date Seen 04/14/18 Time Seen by Provider: 14:11 Assessment & Plan The patient is a 78-year-old white male who was admitted in the late hours of . He apparently has Parkinson's disease. He lives at [facility] and was sent to the emergency room because of lethargy. He is a vague historian. In the emergency room he was noted to be arousable. He was also found to be febrile and with a hypoxia. Chest x-ray was thought to suggest a left lower lobe pneumonia by the ER staff however radiology does not concur. His initial white blood count was 17,500, the following morning 20,800 , and this morning 18,100. His temperature was recorded as high as 103 in the emergency room and has been slowly improving since admission. Blood cultures to this point are negative. Physical exam: The patient is an elderly white male who answered most questions with 'that is about right' He exhibits a dry cough. Breath sounds are shallow and clear. CV is regular. Extremities show no pedal edema. Impression: Febrile illness suggesting pneumonia. 2.history of Parkinson's disease. Plan: Continue empiric antibiotics. Focused Exam Lactate Level 04/12/18 22:30: Lactic Acid Level 1.59 AKHIL GARCIA MD Apr 14, 2018 14:18
[2018-04-14 16:00] VITALS: BP 98/49
[2018-04-14] MEDS ORDERED: TROUGH ORDER-PHARMACY XX NR (17:00)
[2018-04-14] MEDS: VANCOMYCIN INJECTION 1,000 MG in NS (IVPB) 250 ML IV SCH (23:40)
[2018-04-15 00:35] VITALS: BP 101/49
[2018-04-15] MEDS: NS IV 1000 ML 1,000 ML IV SCH ×2 (04:35→17:00)
[2018-04-15] MEDS: inSUlin ASPART (NovoLOG) 1 UNIT/0.01 ML (CHARGE PER UNIT) SC SCH ×4 (06:20→23:17)
[2018-04-15] MEDS: RT-ALBUTEROL SULF 2.5 MG/3 ML PRE-MIX VIAL INH SCH ×4 (07:40→20:06)
[2018-04-15 08:00] VITALS: BP 115/56
[2018-04-15] MEDS: PIPERACILLIN/TAZOBACTAM 3.375 GM in NS (IVPB) 100 ML IV SCH ×3 (08:22→23:28)
[2018-04-15] MEDS: SINEMET 25/100 (CARBIDOPA/LEVODOPA) TAB PO SCH ×2 (08:22→20:10)
--- NOTE | 2018-04-15 09:45 | Occupational Therapy Eval ---
OT Evaluation-General/PLF Medical Diagnosis Admission Date Apr 13, 2018 at 00:10 Medical Diagnosis: LLL pneumonia/hypoxia Onset Date: Apr 13, 2018 Therapy Diagnosis Therapy Diagnosis: Decreased ADL skills Height/Weight Height (Feet): 5 Height (Inches): 10.00 Weight (Pounds): 177 Weight (Ounces): 6.0 Precautions Precautions/Isolations: Fall Prevention, Standard Precautions, Pressure Ulcer Safety Interventions: Bed Exit Alarm, Reorient-PRN Weight Bear Status Weight Bearing Restriction: Weight Bearing/Tolerated Referral Physician: Cindi Referral Reason: Activity Tolerance, Self Care, Evaluation/Treatment, Strengthening/ROM Medical History Pertinent Medical History: Arthritis, CAD, DM, Dementia, HTN, RI, Parkinson's, Renal Insufficiency Current History Pt. is resident at [facility] in [place]. Chart specifies that pt. is typically up and mobile. However, pt. demonstrates contractures in bilateral LE. Pt.'s previous mobility is unknown to this therapist at this time. Reviewed History: Yes Social History Home: Care Home Current Living Status: Entry Into Home: Level Entry ADL-Prior Level of Function ADL PLOF Comments Pt. is somewhat confused. Does not know where he lives or where he is now. Pt. is unable to answer questions regarding previous physical state or ability. OT Current Status Subjective No pain reported. Appearance Pt. is in bed. Kitchen staff brings him a diet coke. She opens it and pours into cup with lid and straw. Pt. is able to hold this and bring to mouth and drink. Spoke with nursing. States that he has been feeding self. Mental Status/Objective Patient Orientation: Confused, Unable to Assess Attachments: IV ADL-Treatment Functional [place] Measure 0=Not Assessed/NA 4=Minimal Assistance 1=Total Assistance 5=Supervision or Setup 2=Maximal Assistance 6=Modified [place] 3=Moderate Assistance 7=Complete IndependenceIRFPAI Quality Coding Scale 6 Independent with activity with or without an assistive device 5 Patient requires set up or clean up by helper. Patient completes activity by themselves 4 Supervision or touching assist (CGA). [place] provide cues , steadying assist 3 The helper provides less than half the effort to complete the activity 2 The helper provides more than half the effort to complete the activity 1 Dependent. The helper does all the effort to complete an activity 7 Patient refused to complete or attempt activity 9 The patient did not perform the activity before the current illness or injury 88 Not attempted due to Medical conditions or safety concerns Transfers (B, C, W/C) (FIM): 1 Other Treatments Pt. agrees to sit on side of bed. OT removed boots and SCDs. Transferred supine-sit with max assist needed. Noted contractures in bilateral hips and knees. Pt. unable to straighten legs out. Once sitting, pt. had great difficulty holding self up on side of bed. OT held pt. up and attempted to have him implement strategies to position self. Pt. unable to follow strategies and unable to hold self up. Transferred back to bed and nursing came in to assist with bed mobility. Dependent assist for bed mobility. All needs met in room. Education OT Patient Education: Correct positioning, Modified ADL techniques, Progress toward Goal/Update tx plan, Purpose of tx/functional activities, Reviewed precautions, Rehab process, Transfer techniques Teaching Recipient: Patient Teaching Methods: Demonstration, Discussion Response to Teaching: Verbalize Understanding, Return Demonstration OT Short Term Goals Short Term Goals Transfers (B,C,W/C) (FIM): 2 1=Demonstrate adherence to instructed precautions during ADL tasks. 2=Patient will verbalize/demonstrate understanding of assistive devices/ modifications for ADL. 3=Patient will improve strength/tolerance for activity to enable patient to perform ADL's. OT Pattern Ruler Goals Pattern Ruler Goals 1=Demonstrate adherence to instructed precautions during ADL tasks. 2=Patient will verbalize/demonstrate understanding of assistive devices/ modifications for ADL. 3=Patient will improve strength/tolerance for activity to enable patient to perform ADL's. OT Education/Plan Problem List/Assessment Assessment: Decreased Activ Tolerance, Decreased Safety Aware, Decreased UE Strength, Dependent Transfers, Impaired Bed Mobility, Impaired Cognition, Impaired Funct Balance, Impaired I ADL's, Impaired Self-Care Skills, Restricted Funct UE ROM Discharge Recommendations Plan/Recommendations: Continue POC Therapy D/C Recommendations: 24 hr Supervision Treatment Plan/Plan of Care Treatment,Training & Education: Yes Patient would benefit from OT for education, treatment and training to promote independence in ADL's, mobility, safety and/or upper extremity function for ADL' s. Plan of Care: ADL Retraining, Functional Mobility, UE Funct Exercise/Act Treatment Duration: Apr 22, 2018 Frequency: 5 times per week Estimated Hrs Per Day: .25 hour per day Agreement: Yes Rehab Potential: Guarded Time/GCodes Start Time: 08:40 Stop Time: 08:55 Total Time Billed (hr/min): 15 Billed Treatment Time 1, PARAS NIX OT Apr 15, 2018 09:45
[2018-04-15] MEDS: ENOXAPARIN 40 MG/0.4 ML (LOVENOX) SYR SC SCH (09:54)
[2018-04-15] MEDS: VANCOMYCIN INJECTION 1,000 MG in NS (IVPB) 250 ML IV SCH (10:23)
--- NOTE | 2018-04-15 10:23 | Physical Therapy Daily Note ---
PT Daily Note-Current Subjective Patient in bed pre tx, agrees to PT, will be hoyering him into a recliner and performing LE exercises. Appearance Patient in recliner post tx with nurse call, chair alarm, legs elevated and on pillows. Mental Status Patient Orientation: Person Attachments: SCD's, Oxygen, IV Transfers Functional [place] Measure 0=Not Assessed/NA 4=Minimal Assistance 1=Total Assistance 5=Supervision or Setup 2=Maximal Assistance 6=Modified [place] 3=Moderate Assistance 7=Complete IndependenceIRFPAI Quality Coding Scale 6 Independent with activity with or without an assistive device 5 Patient requires set up or clean up by helper. Patient completes activity by themselves 4 Supervision or touching assist (CGA). [place] provide cues , steadying assist 3 The helper provides less than half the effort to complete the activity 2 The helper provides more than half the effort to complete the activity 1 Dependent. The helper does all the effort to complete an activity 7 Patient refused to complete or attempt activity 9 The patient did not perform the activity before the current illness or injury 88 Not attempted due to Medical conditions or safety concerns Transfers (B, C, W/C) (FIM): 1 Scootin Rollin Supine to/from Sit: 1 Bed to/from Chair: 1 Weight Bearing Right Lower Extremity: Right Weight Bearing/Tolerated Left Lower Extremity: Left Weight Bearing/Tolerated Treatments Patient urinated and had a BM in bed. He was rolled several times to each side for cleaning and he was able to assist a little but not enough to be max assist. The shan sling was placed under him with more rolling and he was transferred to recliner. He performed 15 reps of ankle pumps and LAQ bilaterally. Patient has severe knee flexion contractures and he cannot achieve full extension of the knee during LAQ. Assessment Current Status: Poor Progress no change in mobility PT Short Term Goals Short Term Goals Time Frame: Apr 18, 2018 Transfers (B,C,W/C) (FIM): 2 PT Plan Problem List Problem List: Activity Tolerance, Functional Strength, Safety, Balance, Gait, Transfer, Bed Mobility, ROM Treatment/Plan Treatment Plan: Continue Plan of Care Treatment Plan: Bed Mobility, Education, Functional Activity Bea, Functional Strength, Safety, Therapeutic Exercise, Transfers Treatment Duration: Apr 18, 2018 Frequency: 5 times per week Estimated Hrs Per Day: .25 hour per day Patient and/or Family Agrees t: Yes Safety Risks/Education Patient Education: Transfer Techniques, Correct Positioning, Safety Issues Teaching Recipient: Patient Teaching Methods: Demonstration, Discussion Response to Teaching: Reinforcement Needed Time/GCodes Time In: 0945 Time Out: 1010 Total Billed Treatment Time: 25 Total Billed Treatment 1 visit FA 25' DI LINTON PT Apr 15, 2018 10:23
--- NOTE | 2018-04-15 14:07 | Progress Note-Hospitalist ---
Progress Note Progress Notes/Assess & Plan Date Seen 04/15/18 Time Seen by Provider: 14:02 Assessment & Plan The patient is lying in bed. He is apparently brighter than yesterday. He was asked about his ability to ambulate. He allowed that he really does not walk. I then asked him about whether he was up in the wheelchair at the skilled nursing and he stated yes. He apparently is able to move about a bit by use of arms. His temperature maximum was 99.6. His white count is still elevated at 18,100 with a relatively normal differential and predominant granulocytes. He does not seem to be coughing to the degree he was yesterday. Physical exam: As noted above the patient appears more alert today. Lungs show distant breath sounds but are clear. CV is regular. Ecchymoses are noted on the forearms. Impression: Febrile illness most typical of pneumonia but with minimum x-ray evidence. 2.granulocytosis. 3.Parkinson's disease by history with non- ambulatory status. : Plan: DC vancomycin. We will continue IV and other meds. Evaluated for swing bed status Focused Exam Lactate Level 04/12/18 22:30: Lactic Acid Level 1.59 AKHIL GARCIA MD Apr 15, 2018 14:07
[2018-04-15 16:05] VITALS: BP 129/66
[2018-04-15] MEDS: TAMSULOSIN 0.4 MG (FLOMAX) CAP PO SCH (20:10)
[2018-04-16 00:30] VITALS: BP 136/66
[2018-04-16] MEDS: inSUlin ASPART (NovoLOG) 1 UNIT/0.01 ML (CHARGE PER UNIT) SC SCH (06:10)
[2018-04-16] MEDS: NS IV 1000 ML 1,000 ML IV SCH (06:13)
[2018-04-16] MEDS: RT-ALBUTEROL SULF 2.5 MG/3 ML PRE-MIX VIAL INH SCH ×2 (06:46→10:35)
[2018-04-16] MEDS: PIPERACILLIN/TAZOBACTAM 3.375 GM in NS (IVPB) 100 ML IV SCH (07:02)
[2018-04-16 08:00] VITALS: BP 116/54
[2018-04-16] MEDS: SINEMET 25/100 (CARBIDOPA/LEVODOPA) TAB PO SCH (08:20)
[2018-04-16] MEDS: ENOXAPARIN 40 MG/0.4 ML (LOVENOX) SYR SC SCH (08:20)
--- NOTE | 2018-04-16 10:41 | Physical Therapy Daily Note ---
PT Daily Note-Current Subjective Patient in recliner pre tx, agrees to PT, states he has pain in his knees but is unrated. Appearance Patient in recliner post tx with nurse call, phone, tray, heel protectors on, all needs met. Mental Status Patient Orientation: Person Attachments: IV Transfers Functional [place] Measure 0=Not Assessed/NA 4=Minimal Assistance 1=Total Assistance 5=Supervision or Setup 2=Maximal Assistance 6=Modified [place] 3=Moderate Assistance 7=Complete IndependenceIRFPAI Quality Coding Scale 6 Independent with activity with or without an assistive device 5 Patient requires set up or clean up by helper. Patient completes activity by themselves 4 Supervision or touching assist (CGA). [place] provide cues , steadying assist 3 The helper provides less than half the effort to complete the activity 2 The helper provides more than half the effort to complete the activity 1 Dependent. The helper does all the effort to complete an activity 7 Patient refused to complete or attempt activity 9 The patient did not perform the activity before the current illness or injury 88 Not attempted due to Medical conditions or safety concerns Transfers (B, C, W/C) (FIM): 2 Sit to/from Stand: 2 Patient was hard max assist to stand, needs a lot of help just to lean forward, resisted leaning forward. Patient stood twice from the recliner for about 20 seconds each time. Weight Bearing Right Lower Extremity: Right Weight Bearing/Tolerated Left Lower Extremity: Left Weight Bearing/Tolerated Exercises Seated Therapy Exercises: Ankle pumps, Long arc quads Seated Reps: 15 bilateral knee extension stretching Treatments transfers, standing, AROM, stretching Assessment Current Status: Poor Progress no change in mobility, patient has severe knee flexion contractures PT Short Term Goals Short Term Goals Time Frame: Apr 18, 2018 Transfers (B,C,W/C) (FIM): 2 PT Plan Problem List Problem List: Activity Tolerance, Functional Strength, Safety, Balance, Gait, Transfer, Bed Mobility, ROM Treatment/Plan Treatment Plan: Continue Plan of Care Treatment Plan: Bed Mobility, Education, Functional Activity Bea, Functional Strength, Safety, Therapeutic Exercise, Transfers Treatment Duration: Apr 18, 2018 Frequency: 5 times per week Estimated Hrs Per Day: .25 hour per day Patient and/or Family Agrees t: Yes Safety Risks/Education Patient Education: Transfer Techniques, Correct Positioning, Safety Issues Teaching Recipient: Patient Teaching Methods: Demonstration, Discussion Response to Teaching: Reinforcement Needed Time/GCodes Time In: 1008 Time Out: 1027 Total Billed Treatment Time: 19 Total Billed Treatment 1 visit EX 19' DI LINTON PT Apr 16, 2018 10:41
--- NOTE | 2018-04-16 11:32 | Discharge Summary-Hospitalist ---
Diagnosis/Chief Complaint Date of Admission Apr 13, 2018 at 00:10 Date of Discharge April 16, 2008 Discharge Date: Apr 16, 2018 Discharge Time: 11:30 Admission Diagnosis Sepsis Discharge Diagnosis 1 sepsis 2. Left lower lobe pneumonia 3. Parkinson's 4. Type II diabetes 5. BPH 6. 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 (1) Sepsis Status: Acute Assessment & Plan: Leukocytosis with fever and PNA clinically Continue Vanc and Zosyn for now Cultures pending No evidence of severe sepsis (2) Pneumonia Status: Acute Assessment & Plan: Continue abx as above MAT protocol (3) Parkinson disease Status: Chronic Assessment & Plan: Resume home Sinemet (4) Non-insulin dependent type 2 diabetes mellitus Status: Chronic Assessment & Plan: Will hold home meds SSI A (5) Prophylactic measure Assessment & Plan: Lovenox NS at 75ml/hr Dysphagia diet Discharge Summary Procedures/Consulations None Discharge Physical Exam Allergies: Coded Allergies: No Known Drug Allergies (Verified , 01/19/16) Vitals & I&Os Vital Signs Date Time Temp Pulse Resp B/P (MAP) Pulse Ox O2 Delivery O2 Flow Rate FiO2 04/16/18 10:37 90 Room Air 04/16/18 08:00 99.1 63 18 116/54 (74) 4.00 04/16/18 06:54 21 General Appearance: Alert, Cooperative, Other (Disoriented 3) HEENT: Other (Edentulous) Respiratory: Clear to Auscultation Cardiovascular: Regular Rate, Normal S1, Normal S2 Abdominal: Normal Bowel Sounds, Soft Extremities: No Edema Psych/Mental Status: Mood NL Hospital Course Patient was admitted with a temperature for 103 elevated white count lethargy. Chest x-ray showed an early left lower lobe pneumonia. No organism has been obtained in terms of the pneumonia or sepsis. Patient's blood pressure reading remained stable throughout. He was placed on vancomycin and Zosyn with improvement in his white count and defervescence. At the time my interview on the day of discharge he is disoriented 2 but he knows who he is. He is sitting up in a chair and is awake and alert and says he still doesn't feel that great he is being transferred to swing bed for continued IV antibiotics with plans to return to [place]. Labs (last 24 hrs) Laboratory Tests 04/15/18 16:07: Glucometer 120H 04/15/18 20:37: Glucometer 131H 04/16/18 05:38: Glucometer 114H 04/16/18 10:58: Glucometer 107 Microbiology 04/12/18 Blood Culture - Preliminary, Resulted No growth 04/14/18 MRSA Screen - Final, Complete MRSA not isolated Patient resulted labs reviewed. Pending Labs Laboratory Tests 04/16/18 05:38: Glucometer 114 04/16/18 10:58: Glucometer 107 Imaging: Reviewed Imaging Report Discussion & Recommendations Discharge Planning: >30 minutes discharge planning Discharge Home Medications: Active Scripts Active Reported Clobetasol Propionate 15 Gm Cream..g. 1 Gm TP BID APPLY SPARINGLY NEEDED FOR BED SORES Biofreeze (Menthol) 118 Ml Gel..ml. 1 Ml TP Q8H PRN Metformin HCl 500 Mg Tablet 500 Mg PO DAILY Triamcinolone Acetonide 0.1% Ointment (Triamcinolone Acet) 15 Gm Oint TP BID PRN Carbidopa-Levodopa 25-100 Tab (Carbidopa/Levodopa) 1 Each Tablet 1 Tab PO BID Mylanta Suspension (Al Hydrox/Mg Hydrox/Simethicone) 30 Ml Oral.susp 30 Ml PO Q6H PRN Pantoprazole Sodium 40 Mg Tablet.dr 40 Mg PO DAILY Mometasone Furoate 45 Gm Cream..g. 1 Gm TP BID PRN APPLY TO FACE, ELBOWS, BUTTOCKS NEEDED TWICE DAILY FOR BED SORES Glipizide 5 Mg Tablet 5 Mg PO DAILY Tamsulosin HCl 0.4 Mg Cap.er.24h 0.4 Mg PO HS Milk of Magnesia (Magnesium Hydroxide) 400 Mg/5 Ml Oral.susp 30 Ml PO DAILY PRN Cyanocobalamin 1,000 Mcg/Ml Vial 1,000 Mcg IM MONTHLY RECEIVES ON THE OF EACH MONTH Condition at discharge Stable Instructions to patient/family Please see electronic discharge instructions given to patient. Clinical Quality Measures DVT/VTE Risk/Contraindication: Risk Factor Score Per Nursin RFS Level Per Nursing on Admit: 4+=Very High Problem Qualifiers (1) Sepsis: Sepsis type: sepsis due to unspecified organism Qualified Codes: A41.9 - Sepsis, unspecified organism (2) Pneumonia: Pneumonia type: due to unspecified organism Laterality: left Lung location: lower lobe of lung Qualified Codes: J18.1 - Lobar pneumonia, unspecified organism SANDNESS,RUSH M MD Apr 16, 2018 11:32
== END 2018-04-16 11:35 | disposition swing bed (61) | DRG 871 ==
LOC: EDUNIT# 22:21 → ER 22:22 → 4TH 04-13 00:10
PROVIDERS: ADMIT Family Medicine; ATTEND Family Medicine
DX: A41.9 Sepsis, unspecified organism (principal); J18.9 Pneumonia, unspecified organism; I25.10 Atherosclerotic heart disease of native coronary artery without angina pectoris; I12.9 Hypertensive chronic kidney disease with stage 1 through stage 4 chronic kidney disease, or unspecified chronic kidney disease; N18.9 Chronic kidney disease, unspecified; E11.22 Type 2 diabetes mellitus with diabetic chronic kidney disease; F03.90 Unspecified dementia, unspecified severity, without behavioral disturbance, psychotic disturbance, mood disturbance, and anxiety; G20 Parkinson's disease; Z66 Do not resuscitate; F32.9 Major depressive disorder, single episode, unspecified; I25.2 Old myocardial infarction; Z79.4 Long term (current) use of insulin
CPT/HCPCS: 36415; 71045; 80048; 80053; 80202; 81000; 82962; 83605; 85007; 85025; 85027; 85610; 85730; 87040; 87081; 94640; 94664; 94760; 96374

== ENCOUNTER 2018-04-16 09:19 | Inpatient (IN) | payer MEDICARE ==
[~2018-04-16] VITALS: Ht 177.8 cm; Wt 80.5 kg
[~2018-04-16 09:19] MED LIST changes: +METF500T5 PO
[2018-04-16] MEDS ORDERED: ACETAMINOPHEN 325 MG TABLET PO PRN (11:45)
[2018-04-16] MEDS ORDERED: ACETAMINOPHEN 650 MG SUPP (TYLENOL) PR PRN (11:45)
[2018-04-16] MEDS ORDERED: RT-ALBUTEROL SULF 2.5 MG/3 ML PRE-MIX VIAL INH PRN (11:45)
[2018-04-16] MEDS ORDERED: PIPERACILLIN/TAZOBACTAM 3.375 GM in NS (IVPB) 100 ML IV SCH (11:45)
[2018-04-16] MEDS ORDERED: ENOXAPARIN 40 MG/0.4 ML (LOVENOX) SYR SC SCH (11:45)
--- OUTSIDE RECORDS SUMMARY | 2018-04-16 11:57 | XMS REPORT | Clinical Summary ---
Author Author [facility] Organization [facility] Address Unknown Phone Unavailable Care Team Providers Care Dobie Worker Name Role Phone Rafael Colin PCP Aida Swartz RN Unavailable Unavailable Hitesh Allen MD Unavailable Ulices Carrera MD Unavailable Luis Marks MD Unavailable Source Comments Some departments are not documenting in the electronic medical record. If you do not see the information that you expected, contact Release of Information in the Health Information Management department at [phone] for further assistance in locating additional records.[facility] Allergies No Known Allergies Current Medications Prescription [...]
--- OUTSIDE RECORDS SUMMARY | 2018-04-16 12:01 | XMS REPORT | Continuity of Care Document ---
Author Author [facility] Organization [facility] Address Unknown Phone Unavailable Allergies Active Description Code Type Severity Reaction Onset Reported/Identified Relationship to Patient Clinical Status Yes No Known Drug Allergies [id number] Drug Allergy Unknown N/A 01/19/2016 Medications There [...] 250.00 12/28/2015 Ot 274.9 12/28/2015 KASIA JEAN PALLIATIVE CARE PHYSICIAN Ot 250.00 12/28/2015 KASIA JEAN PALLIATIVE CARE PHYSICIAN Ot 250.00 12/28/2015 FELIPE LAYNE, JASSI A [...] R Ot I25.10 ATHSCL HEART DISEASE OF [place] CORONARY 01/04/2016 TED LAYNE, ELYSIA R Ot I25.2 OLD MYOCARDIAL INFARCTION 01/04/2016 TED LAYNE, ELYSIA R Ot L40.9 PSORIASIS, UNSPECIFIED 01/04/2016 ELYSIA JEAN MD R Ot N18.9 CHRONIC KIDNEY DISEASE, UNSPECIFIED 01/04/2016 ELYSIA JEAN MD R Ot R41.82 ALTERED MENTAL STATUS, UNSPECIFIED 01/04/2016 ELYSIA JEAN MD R Ot Z66 DO NOT RESUSCITATE 01/04/2016 ELYSIA JEAN MD R Ot Z79.4 JAIL (CURRENT) USE OF INSULIN 01/04/2016 ELYSIA JEAN [...] R Ot I25.10 ATHSCL HEART DISEASE OF [place] CORONARY 01/18/2016 ELYSIA JEAN MD R Ot [...] RESUSCITATE 01/18/2016 ELYSIA JEAN MD Ot Z79.4 PRINT PRODUCTION COORDINATOR (CURRENT) USE OF INSULIN 01/18/2016 ELYSIA JEAN [...] R Ot I25.10 ATHSCL HEART DISEASE OF [place] CORONARY 01/19/2016 ELYSIA JEAN MD R Ot [...] 01/19/2016 TED LAYNE, ELYSIA Devine Ot Z79.4 JAIL (CURRENT) USE OF INSULIN 01/19/2016 ELYSIA JEAN [...] R Ot I25.10 ATHSCL HEART DISEASE OF [place] CORONARY 01/20/2016 TED LAYNE, ELYSIA R Ot [...] 01/20/2016 TED LAYNE, ELYSIA Devine Ot Z79.4 JAIL (CURRENT) USE OF INSULIN 01/20/2016 TED LAYNE, [...] APRN Ot I25.10 ATHSCL HEART DISEASE OF [place] CORONARY 04/26/2017 MARIJA PEREZ APRN Ot I25.2 [...] NOT ELSEWHERE CLA 06/26/2017 ELYSIA JEAN MD R Ot R82.99 OTHER ABNORMAL FINDINGS IN URINE 06/26/2017 ELYSIA JEAN MD R Ot Z91.81 HISTORY OF FALLING 07/15/2017 ELYSIA JEAN MD R Ot M62.81 MUSCLE WEAKNESS (GENERALIZED) 07/15/2017 ELYSIA JEAN MD R Ot N18.9 CHRONIC KIDNEY DISEASE, UNSPECIFIED 07/15/2017 ELYSIA JEAN MD R Ot R26.2 DIFFICULTY IN WALKING, NOT ELSEWHERE CLA 07/15/2017 ELYSIA JEAN MD R Ot R82.99 OTHER ABNORMAL FINDINGS IN URINE 07/15/2017 ELYSIA JEAN MD R Ot Z91.81 HISTORY OF FALLING 04/16/2018 CHACE GARZON MD, Ot A41.9 SEPSIS, UNSPECIFIED ORGANISM 04/16/2018 CHACE GARZON MD Ot E11.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 04/16/2018 CHACE GARZON MD Ot F03.90 UNSPECIFIED DEMENTIA WITHOUT BEHAVIORAL 04/16/2018 CHACE GARZON MD, Ot F32.9 MAJOR DEPRESSIVE DISORDER, SINGLE EPISOD 04/16/2018 CHACE GARZON MD Ot G20 PARKINSON'S DISEASE 04/16/2018 CHACE GARZON MD Ot I12.9 HYPERTENSIVE CHRONIC KIDNEY DISEASE W ST 04/16/2018 CHACE GARZON MD Ot I25.10 ATHSCL HEART DISEASE OF [place] CORONARY 04/16/2018 CHACE GARZON MD, Ot I25.2 OLD MYOCARDIAL INFARCTION 04/16/2018 CHACE GARZON MD, Ot J18.9 PNEUMONIA, UNSPECIFIED ORGANISM 04/16/2018 CHACE GARZON MD, Ot N18.9 CHRONIC KIDNEY DISEASE, UNSPECIFIED 04/16/2018 CHACE GARZON MD, Ot Z66 DO NOT RESUSCITATE 04/16/2018 CHACE GARZON MD Ot Z79.4 JAIL (CURRENT) USE OF INSULIN 04/16/2018 CHACE GARZON MD, Ot A41.9 SEPSIS, UNSPECIFIED ORGANISM 04/16/2018 CHACE GARZON MD, Ot E11.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 04/16/2018 CHACE GARZON MD, Ot F03.90 UNSPECIFIED DEMENTIA WITHOUT BEHAVIORAL 04/16/2018 CHACE GARZON MD, Ot F32.9 MAJOR DEPRESSIVE DISORDER, SINGLE EPISOD 04/16/2018 CHACE GARZON MD, Ot G20 PARKINSON'S DISEASE 04/16/2018 CHACE GARZON MD, Ot I12.9 HYPERTENSIVE CHRONIC KIDNEY DISEASE W ST 04/16/2018 CHACE GARZON MD, Ot I25.10 ATHSCL HEART DISEASE OF [place] CORONARY 04/16/2018 CHACE GARZON MD, Ot I25.2 OLD MYOCARDIAL INFARCTION 04/16/2018 CHACE GARZON MD, Ot J18.9 PNEUMONIA, UNSPECIFIED ORGANISM 04/16/2018 CHACE GARZON MD, Ot N18.9 CHRONIC KIDNEY DISEASE, UNSPECIFIED 04/16/2018 CHACE GARZON MD, Ot Z66 DO NOT RESUSCITATE 04/16/2018 CHACE GARZON MD, Ot Z79.4 PRINT PRODUCTION COORDINATOR (CURRENT) USE OF INSULIN Procedures Code Description Performed By Performed On [id number] 01/18/2016 [id number] 01/19/2016 Results Test Result Range Complete urinalysis [...] erythrocyte count by microscopy (number/high power field) [facility] NR Automated urine sediment leukocyte count by microscopy (number/high power field ) [facility] NR Bacteria detection in urine sediment by light microscopy LARGE NRG Crystals detection in urine sediment by light microscopy NONE NRG Casts detection in urine sediment by light microscopy NONE NRG Mucus detection in urine sediment by light microscopy NEGATIVE NRG Complete urinalysis with reflex to culture YES NRG Bacterial urine culture - 04/26/17 15:19 Bacterial urine culture [id number] NRG COLONY COUNT >100,000/ML NRG FTX;REPORTABLE SENSITIVITY REPORTED 04/28/17 8:30 NRG Bacterial susceptibility panel - 04/26/17 15:19 Gentamicin [...] culture - 06/22/17 07:34 Bacterial urine culture [id number] NRG COLONY COUNT <10,000 NRG FTX;REPORTABLE SENSITIVITY REPORTED 06/25/17 9:35 [facility] Bacterial susceptibility panel - 06/22/17 07:34 [...] susceptibility test by minimum inhibitory concentration R [facility] Bacterial susceptibility panel - 06/22/17 07:34 Gentamicin susceptibility test by minimum inhibitory concentration R NRG Vancomycin susceptibility test by minimum inhibitory concentration 1 NRG Levofloxacin susceptibility test by minimum inhibitory concentration >= NRG Tetracycline susceptibility test by minimum inhibitory concentration >= NRG Ampicillin susceptibility test by minimum inhibitory concentration < = NRG Ciprofloxacin susceptibility test by minimum inhibitory concentration R NR Nitrofurantoin susceptibility test by minimum inhibitory concentration <= NRG Linezolid susceptibility test by minimum inhibitory concentration 1 [facility] Bacterial susceptibility panel - 06/22/17 07:34 [...] susceptibility test by minimum inhibitory concentration R NR Complete blood count (CBC) with automated white [...] NRG Manual blood basophils/100 leukocytes 1 % NRG Blood erythrocyte morphology finding identification NORMAL NR Comprehensive metabolic panel - 04/12/18 22:30 Serum [...] NRG Serum or plasma glucose measurement (mass/volume) 121 [...] - 04/12/18 22:30 Bacterial blood culture NG NRG Bacterial blood culture - 04/12/18 22:52 Bacterial blood culture NG NRG Complete urinalysis with reflex to culture - 04/12/18 22:58 Urine color determination YELLOW NRG Urine clarity [...] measurement by glucometer (mass/volume) 101 mg/dL 70-110 Methicillin resistant Staphylococcus aureus (MRSA) screening culture - 11:00 Methicillin resistant Staphylococcus aureus (MRSA) screening culture NEG NRG Capillary blood glucose measurement by glucometer (mass/volume) - 04/14/18 11: 20 Capillary blood glucose measurement by glucometer (mass/volume) 280 mg/dL 70-110 Capillary blood glucose measurement by glucometer (mass/volume) - 04/14/18 15: 29 Capillary blood glucose measurement by glucometer (mass/volume) 91 mg/dL 70-110 Vancomycin trough - 04/14/18 17:09 Vancomycin trough 22.1 ug/mL 10.0-20.0 Capillary blood glucose measurement by glucometer (mass/volume) - 04/14/18 20: 57 Capillary blood glucose measurement by glucometer (mass/volume) 151 mg/dL 70-110 Capillary blood glucose measurement by glucometer (mass/volume) - 04/15/18 06: 09 Capillary blood glucose measurement by glucometer (mass/volume) 121 mg/dL 70-110 Capillary blood glucose measurement by glucometer (mass/volume) - 04/15/18 11: 10 Capillary blood glucose measurement by glucometer (mass/volume) 154 mg/dL 70-110 Capillary blood glucose measurement by glucometer (mass/volume) - 04/15/18 16: 07 Capillary blood glucose measurement by glucometer (mass/volume) 120 mg/dL 70-110 Capillary blood glucose measurement by glucometer (mass/volume) - 04/15/18 20: 37 Capillary blood glucose measurement by glucometer (mass/volume) 131 mg/dL 70-110 Capillary blood glucose measurement by glucometer (mass/volume) - 04/16/18 05: 38 Capillary blood glucose measurement by glucometer (mass/volume) 114 mg/dL 70-110 Capillary blood glucose measurement by glucometer (mass/volume) - 04/16/18 10: 58 Capillary blood glucose measurement by glucometer (mass/volume) 107 mg/dL 70-110 Encounters ACCT No. Visit Date/Time Discharge Status Pt. Type Provider Facility Loc./Unit Complaint [id number] 04/13/2018 00:10:00 04/16/2018 11:35:00 DIS Inpatient DURAN LAYNE, CHACE Mckeon [facility] 4TH LLL PNA, HYPOXIA [id number] 06/22/2017 10:02:00 06/22/2017 23:59:59 CLS Outpatient ELYSIA JEAN MD [facility] N18.9 M62.81 R26.2 Z91.81 [id number] 04/26/2017 14:46:00 04/26/2017 16:49:00 DIS Emergency MARIJA PEREZ APRN [facility] ER URINARY PROBLEMS [id number] 11/03/2016 17:27:00 11/03/2016 23:59:59 CLS Outpatient ELYSIA JEAN MD [facility] N18.9 [id number] 01/16/2016 16:34:00 01/20/2016 15:39:00 DIS Inpatient ELYSIA JEAN MD [facility] [address] [id number] 12/30/2015 07:16:00 01/04/2016 14:53:00 DIS Outpatient ELYSIA JEAN MD Via [address] [id number] 12/18/2015 16:50:00 12/21/2015 12:00:00 DIS Inpatient ELYSIA JEAN MD Via [address] [id number] 07/18/2015 16:23:00 07/18/2015 23:59:59 CLS Outpatient ELYSIA JEAN MD [facility] [id number] 10/08/2014 00:35:00 10/08/2014 23:59:59 CLS Preadmit CHRISTIANO SALAS MD [facility] ONC [id number] 07/22/2014 13:55:00 10/07/2014 00:01:00 DIS Outpatient CHRISTIANO SALAS MD [facility] ONC [id number] 09/13/2014 19:55:00 09/17/2014 13:04:00 DIS Inpatient ELYSIA JEAN MD [facility] [address] [id number] 05/27/2014 13:47:00 07/08/2014 00:01:00 DIS Outpatient CHRISTIANO SALAS MD [facility] ONC [id number] 04/08/2014 01:32:00 04/08/2014 03:00:00 DIS Emergency SHASHA TATE MD [facility] ER [id number] 03/04/2014 11:35:00 03/04/2014 23:59:59 CLS Outpatient JASSI WANG MD [facility] CARD [id number] 01/15/2014 22:10:00 01/18/2014 16:45:00 DIS Inpatient ELYSIA JEAN MD [facility] [address] [id number] 01/07/2014 13:17:00 01/14/2014 15:55:00 DIS Inpatient TED LAYNE, ELYSIA Devine [facility] 4TH [id number] 06/19/2013 06:47:00 06/19/2013 23:59:59 CLS Outpatient KASIA JEAN [facility] LAB [id number] 03/20/2013 06:38:00 03/20/2013 23:59:59 CLS Outpatient KASIA JEAN [facility] LAB [id number] 04/16/2018 11:35:00 ACT Inpatient PARVIZ LAYNE, RUSH Mckeon [facility] 4TH B LLL PNA,HYPOXIA [id number] 01/01/2013 06:04:00 Document Registration [id number] 12/23/2012 06:20:00 Document Registration [id number] 09/12/2012 06:42:00 Document Registration [id number] 06/16/2012 06:53:00 Document Registration [id number] 02/15/2012 20:13:00 Document Registration
[2018-04-16] MEDS: NS IV 1000 ML 1,000 ML IV SCH (12:14)
[2018-04-16] MEDS ORDERED: RT-ALBUTEROL SULF 2.5 MG/3 ML PRE-MIX VIAL ONE (14:27)
[2018-04-16] MEDS: RT-ALBUTEROL SULF 2.5 MG/3 ML PRE-MIX VIAL INH SCH ×2 (14:53→18:35)
--- NOTE | 2018-04-16 15:18 | Occupational Therapy Eval ---
OT Evaluation-General/PLF Medical Diagnosis Admission Date Apr 16, 2018 at 11:35 Medical Diagnosis: Pneumonia/sepsis Onset Date: Apr 13, 2018 Therapy Diagnosis Therapy Diagnosis: Weakness Height/Weight Height (Feet): 5 Height (Inches): 10.00 Weight (Pounds): 177 Weight (Ounces): 6.0 Precautions Precautions/Isolations: Standard Precautions Safety Interventions: Bed Exit Alarm Referral Physician: Dr. May Referral Reason: Activity Tolerance, Self Care, Evaluation/Treatment, Strengthening/ROM Medical History Pertinent Medical History: Arthritis, CAD, DM, Dementia, HTN, [place], Parkinson's, Renal Insufficiency Current History Pt. is currently resident at [facility]. Pt's prior level of status reported to this therapist by proxy of therapist at [facility]. Pt. currently , at [facility], requires max x 2 or shan lift to transfer to wheelchair. Pt. states that he can self propel once up into wheelchair. Reviewed History: Yes Social History Home: Long-Term Current Living Status: Entry Into Home: Level Entry ADL-Prior Level of Function ADL PLOF Comments Pt. is unable to specify how much assistance he requires for bathing and dressing. Somewhat confused at times during this treatment and continually attempts to place the blanket over his head. OT Current Status Subjective Pt. does not report pain and states, "I could be better" when asked how he is doing. Appearance Pt. in bed. Does agree to work with therapy. Mental Status/Objective Patient Orientation: Confused, Unable to Assess Attachments: IV ADL-Treatment Functional [place] Measure 0=Not Assessed/NA 4=Minimal Assistance 1=Total Assistance 5=Supervision or Setup 2=Maximal Assistance 6=Modified [place] 3=Moderate Assistance 7=Complete IndependenceIRFPAI Quality Coding Scale 6 Independent with activity with or without an assistive device 5 Patient requires set up or clean up by helper. Patient completes activity by themselves 4 Supervision or touching assist (CGA). [place] provide cues , steadying assist 3 The helper provides less than half the effort to complete the activity 2 The helper provides more than half the effort to complete the activity 1 Dependent. The helper does all the effort to complete an activity 7 Patient refused to complete or attempt activity 9 The patient did not perform the activity before the current illness or injury 88 Not attempted due to Medical conditions or safety concerns Toileting (FIM): 1 (Pt. incontinent in depend. OT/PT roll him and cleanse him , apply appropriate creams. Nursing notified.) Toileting Hygiene (QC): 1 Transfers (B, C, W/C) (FIM): 1 (Dependent x 2 for mobility.) Toilet/Commode Transfer (FIM): 1 Other Treatments OT/PT co-treated due to pt. requiring increased skilled care. Pt. is unable to assist. PT focused on transfer training and education while OT focused on ADLs. Pt. transferred supine-sit with dependent assist x 2. Pt. unable to hold self up and required max x 2 to sit on side of bed. Pt. closing eyes and required encouragement to keep them open. Attempted to have pt. hold this therapists hands and work on posture, but pt. demonstrates poor trunk control and weakness. Pt. was laid back down with dependent assist. Noted that his brief was wet. OT/PT rolled him and removed brief, cleansed front and rear yovani area, and applied creams. Positioned pt. to comfort level in bed. All needs met and alarm set. Education OT Patient Education: Correct positioning, Modified ADL techniques, Progress toward Goal/Update tx plan, Purpose of tx/functional activities, Reviewed precautions, Rehab process, Transfer techniques Teaching Recipient: Patient Teaching Methods: Demonstration, Discussion Response to Teaching: Verbalize Understanding, Return Demonstration OT Short Term Goals Short Term Goals 1=Demonstrate adherence to instructed precautions during ADL tasks. 2=Patient will verbalize/demonstrate understanding of assistive devices/ modifications for ADL. 3=Patient will improve strength/tolerance for activity to enable patient to perform ADL's. OT Snf Goals Snf Goals Time Frame: Apr 30, 2018 Eating (FIM): 5 Eating (QC): 5 Groomin Oral Hygiene (QC): 3 Upper Body Dressing(FIM): 3 Transfers (B,C,W/C) (FIM): 2 Additional Goals: 1-Demonstrate ADL Tasks, 2-Verbalize Understanding, 3- ImproveStrength/Bea 1=Demonstrate adherence to instructed precautions during ADL tasks. 2=Patient will verbalize/demonstrate understanding of assistive devices/ modifications for ADL. 3=Patient will improve strength/tolerance for activity to enable patient to perform ADL's. OT Education/Plan Problem List/Assessment Assessment: Decreased Activ Tolerance, Decreased UE Strength, Dependent Transfers, Impaired Bed Mobility, Impaired Cognition, Impaired Coordination, Impaired Funct Balance, Impaired I ADL's, Impaired Self-Care Skills, Restricted Funct UE ROM Discharge Recommendations Plan/Recommendations: Continue POC Therapy D/C Recommendations: 24 hr Supervision Treatment Plan/Plan of Care Treatment,Training & Education: Yes Patient would benefit from OT for education, treatment and training to promote independence in ADL's, mobility, safety and/or upper extremity function for ADL' s. Plan of Care: ADL Retraining, Functional Mobility, UE Funct Exercise/Act Treatment Duration: Apr 30, 2018 Frequency: 5 times per week Estimated Hrs Per Day: .25 hour per day Agreement: Yes Rehab Potential: Guarded Time/GCodes Start Time: 14:20 Stop Time: 14:45 Total Time Billed (hr/min): 25 Billed Treatment Time Co-treat eval with PT. Please see above for OT/PT designated roles. 10 (62) 1, PARAS NIX OT Apr 16, 2018 15:18
--- NOTE | 2018-04-16 15:19 | Physical Therapy Evaluation ---
PT Evaluation-General Medical Diagnosis Admission Date Apr 16, 2018 at 11:35 Medical Diagnosis: pneumonia Onset Date: Apr 16, 2018 Therapy Diagnosis Therapy Diagnosis: weakness Height/Weight Height (Feet): 5 Height (Inches): 10.00 Weight (Pounds): 177 Weight (Ounces): 6.0 Precautions Precautions/Isolations: Standard Precautions Weight Bear Status Right Lower Extremity: Right Weight Bearing/Tolerated Left Lower Extremity: Left Weight Bearing/Tolerated Referral Physician: Yadira Reason for Referral: Evaluation/Treatment Medical History Pertinent Medical History: Arthritis, CAD, DM, Dementia, HTN, [place], Parkinson's, Renal Insufficiency Current History Pt was on acute with diagnosis of pneumonia with sepsis. Transferred to [facility] for continued medical management and continued therapy services. Reviewed History: Yes Social History Home: Skilled Nursing Prior/[facility] Prior Level of Function Functional [place] Measure 0=Not Assessed/NA 4=Minimal Assistance 1=Total Assistance 5=Supervision or Setup 2=Maximal Assistance 6=Modified [place] 3=Moderate Assistance 7=Complete [place] per therapy staff at [place], pt was a 2 person transfer or used a lift for transfers. Pt reports he was able to propel the wheelchair with his B UE's within the facility. PT Evaluation-Current Subjective Pt agreeable to PT this date. Pain Comment: When asked, pt reports he has pain but unable to locate or describe Pt/Family Goals Return to [place] when medically stable Objective Patient Orientation: Person, Confused (Follows cues and interacts appropriately ) Problem Solving: Fair Attachments: Oxygen, IV ROM/Strength ROM Lower Extremities Hips are WFL; limited ankle AAROM and B Knee flexion contractures to 45 degrees. Strenght Lower Extremities unable to fully assess Integumentary/Posture Integumentary Refer to nursing notes; reddened buttock area Bowel Incontinence: Yes Bladder Incontinence: Yes Posture Rounded shoulders and head forward; symmetrical; sits in a slumped posture. Neuromuscular (Tone, Coordination, Reflexes) functional Sensory Vision: Functional Hearing: Functional Hand Dominance: Right Sensation Right Lower Extremit: Intact Sensation Left Lower Extremity: Intact Transfers Functional [place] Measure 0=Not Assessed/NA 4=Minimal Assistance 1=Total Assistance 5=Supervision or Setup 2=Maximal Assistance 6=Modified [place] 3=Moderate Assistance 7=Complete [place] Transfers (B, C, W/C) (FIM): 1 (asssit of 2 for transfers.) Scootin Rollin (follows cues to assist with rolling) Supine to/from Sit: 1 (assist of 2) pt sat EOB with dep assist for upright posture; falls back and is in slumped posture; also tends to fall to the right. Unable to initiate forward lean of trunk in sitting. Gait Does the Patient Walk?: No and Walking Goal NOT indicated Mode of Locomotion: Wheelchair Gait (FIM): 0 (unable) Balance Sitting Static: Poor Sitting Dynamic: Poor Treatment Co treat with OT to complete evaluation. Worked on functional sitting EOB with max to dep assist to maintain sitting EOB and cues for core initiation to sit upright. Assessment/Needs Pt presents with poor ability to perform bed mobiliity or transfers and poor sitting balance at EOB. He has knee contractures that limit his ability to stand. He will beneift from short term PT to address mobility and positioning for optimal interaction within the environment. Rehab Potential: Fair PT Boiler Or Engine Operator Goals Mcfp Goals PT Boiler Or Engine Operator Goals Time Frame: Apr 25, 2018 Transfers (B,C,W/C) (FIM): 2 Sit to Lying (QC): 2 [id number] Xfer(QC): 2 PT Plan Problem List Problem List: Activity Tolerance, Functional Strength, Safety, Balance, Transfer, Bed Mobility Treatment/Plan Treatment Plan: Continue Plan of Care Treatment Plan: Bed Mobility, Education, Functional Activity Bea, Functional Strength, Safety, Therapeutic Exercise, Transfers Treatment Duration: Apr 25, 2018 Frequency: 6 times per week Estimated Hrs Per Day: .25 hour per day Patient and/or Family Agrees t: Yes Safety Risks/Education Patient Education: Transfer Techniques, Safety Issues Teaching Recipient: Patient Teaching Methods: Discussion Response to Teaching: Reinforcement Needed Time/GCodes Time In: 1420 Time Out: 1445 Total Billed Treatment Time: 15 Total Billed Treatment visit [id number] co mavis with OT; PT eval 15 min LG VICTORIA PT Apr 16, 2018 15:19
[2018-04-16] MEDS: PIPERACILLIN/TAZOBACTAM 3.375 GM in NS (IVPB) 100 ML IV SCH ×2 (15:22→23:48)
[2018-04-16] MEDS: inSUlin ASPART (NovoLOG) 1 UNIT/0.01 ML (CHARGE PER UNIT) SC SCH ×2 (17:02→21:13)
[2018-04-16] MEDS: SINEMET 25/100 (CARBIDOPA/LEVODOPA) TAB PO SCH (21:13)
[2018-04-16] MEDS: TAMSULOSIN 0.4 MG (FLOMAX) CAP PO SCH (21:13)
[2018-04-17] MEDS: NS IV 1000 ML 1,000 ML IV SCH ×2 (05:06→14:49)
[2018-04-17 05:25] VITALS: BP 120/59
[2018-04-17 05:50] LABS: BASOPHILS # (AUTO) 0.1 10^3/uL (0.0-0.1); BASOPHILS % (AUTO) 1 % (0-10); EOSINOPHILS # (AUTO) 0.5 10^3/uL (0.0-0.3); EOSINOPHILS % (AUTO) 4 % (0-10); HEMATOCRIT 34 % (40-54); HEMOGLOBIN 11.4 G/DL (13.3-17.7); LYMPHOCYTES # (AUTO) 1.2 X 10^3 (1.0-4.0); LYMPHOCYTES % (AUTO) 9 % (12-44); MEAN CORPUSCULAR HEMOGLOBIN 29 PG (25-34); MEAN CORPUSCULAR HGB CONC 34 G/DL (32-36); MEAN CORPUSCULAR VOLUME 87 FL (80-99); MEAN PLATELET VOLUME 10.6 FL (7.4-10.4); MONOCYTES # (AUTO) 1.6 X 10^3 (0.0-1.0); MONOCYTES % (AUTO) 13 % (0-12); NEUTROPHILS # (AUTO) 8.9 X 10^3 (1.8-7.8); NEUTROPHILS % (AUTO) 73 % (42-75); PLATELET COUNT 286 10^3/uL (130-400); RED BLOOD COUNT 3.92 10^6/uL (4.35-5.85); RED CELL DISTRIBUTION WIDTH 17.3 % (10.0-14.5); WHITE BLOOD COUNT 12.3 10^3/uL (4.3-11.0)
[2018-04-17] MEDS: inSUlin ASPART (NovoLOG) 1 UNIT/0.01 ML (CHARGE PER UNIT) SC SCH ×4 (06:18→20:36)
[2018-04-17 06:29] LABS: ALANINE AMINOTRANSFERASE 9 U/L (0-55); ALBUMIN 2.6 GM/DL (3.2-4.5); ALKALINE PHOSPHATASE 140 U/L (40-136); BILIRUBIN,TOTAL 0.8 MG/DL (0.1-1.0); BUN/CREATININE RATIO 11; CALCIUM 8.4 MG/DL (8.5-10.1); CARBON DIOXIDE 17 MMOL/L (21-32); CHLORIDE 118 MMOL/L (98-107); GFR ESTIMATED > 60; GLUCOSE 96 MG/DL (70-105); POTASSIUM 3.5 MMOL/L (3.6-5.0); SODIUM 144 MMOL/L (135-145)
[2018-04-17] MEDS: PIPERACILLIN/TAZOBACTAM 3.375 GM in NS (IVPB) 100 ML IV SCH ×3 (06:34→23:45)
[2018-04-17] MEDS: RT-ALBUTEROL SULF 2.5 MG/3 ML PRE-MIX VIAL INH SCH ×4 (07:06→19:30)
[2018-04-17] MEDS: SINEMET 25/100 (CARBIDOPA/LEVODOPA) TAB PO SCH ×2 (08:47→20:35)
[2018-04-17] MEDS: ENOXAPARIN 40 MG/0.4 ML (LOVENOX) SYR SC SCH (08:47)
--- NOTE | 2018-04-17 10:33 | Occupational Ther Daily Note ---
OT Current Status-Daily Note Subjective Pt alert, sitting in recliner. Pt agrees to therapy. Attempted to see pt prior , but had just gotten breakfast, LEON left then came back. When LEON came back after 20 min, pt had only had a few bites of food and stated that he was full. No c/o pain. Mental Status/Objective Patient Orientation: Person, Place Functional [place] Measure 0=Not Assessed/NA 4=Minimal Assistance 1=Total Assistance 5=Supervision or Setup 2=Maximal Assistance 6=Modified [place] 3=Moderate Assistance 7=Complete [place] Attachments: IV ADL-Treatment Pt agrees to sponge bath. Nrsg notified that pt would be getting a sponge bath. Pt required set up and verbal cues to wash areas of body-face, hands, chest, arms and upper legs. Pt was able to pull self forward using arms of chair. PT came into room and assisted to stand pt while LEON cleansed buttocks. PT assisted pt to scoot back into chair. LEON bathed lower legs, donned/doffed socks. Pt assist in donning/doffing hospital gown. Nrsg came into room and started pt eating again, pt just waited for nrsg to feed him. After therapy, pt sitting in recliner with call light/phone in reach. All needs met in room. Functional [place] Measure 0=Not Assessed/NA 4=Minimal Assistance 1=Total Assistance 5=Supervision or Setup 2=Maximal Assistance 6=Modified [place] 3=Moderate Assistance 7=Complete IndependenceIRFPAI Quality Coding Scale 6 Independent with activity with or without an assistive device 5 Patient requires set up or clean up by helper. Patient completes activity by themselves 4 Supervision or touching assist (CGA). [place] provide cues , steadying assist 3 The helper provides less than half the effort to complete the activity 2 The helper provides more than half the effort to complete the activity 1 Dependent. The helper does all the effort to complete an activity 7 Patient refused to complete or attempt activity 9 The patient did not perform the activity before the current illness or injury 88 Not attempted due to Medical conditions or safety concerns Eating (FIM): 2 Eating (QC): 2 Bathing (FIM): 1 (Assist) Bathing Location: L Arm, R Arm, L Upper Leg, R Upper Leg, Chest, Abdomen Upper Body (FIM): 3 Lower Body Dressing (FIM): 1 OT Short Term Goals Short Term Goals 1=Demonstrate adherence to instructed precautions during ADL tasks. 2=Patient will verbalize/demonstrate understanding of assistive devices/ modifications for ADL. 3=Patient will improve strength/tolerance for activity to enable patient to perform ADL's. OT Sweatband Decorating Machine Operator Goals Sweatband Decorating Machine Operator Goals Time Frame: Apr 30, 2018 Eating (FIM): 5 Eating (QC): 5 Groomin Oral Hygiene (QC): 3 Upper Body Dressing(FIM): 3 Transfers (B,C,W/C) (FIM): 2 Additional Goals: 1-Demonstrate ADL Tasks, 2-Verbalize Understanding, 3- ImproveStrength/Bea 1=Demonstrate adherence to instructed precautions during ADL tasks. 2=Patient will verbalize/demonstrate understanding of assistive devices/ modifications for ADL. 3=Patient will improve strength/tolerance for activity to enable patient to perform ADL's. OT Education/Plan Discharge Recommendations Plan/Recommendations: Continue POC Treatment Plan/Plan of Care Patient would benefit from OT for education, treatment and training to promote independence in ADL's, mobility, safety and/or upper extremity function for ADL' s. Plan of Care: ADL Retraining, Functional Mobility, UE Funct Exercise/Act Treatment Duration: Apr 30, 2018 Frequency: 5 times per week Estimated Hrs Per Day: .25 hour per day Agreement: Yes Rehab Potential: Guarded Time/GCodes Start Time: 09:15 Stop Time: 09:40 Total Time Billed (hr/min): 25 Billed Treatment Time 1 visit-ADL 2 (25 min) LG FISH Apr 17, 2018 10:33
--- NOTE | 2018-04-17 10:35 | Physical Therapy Daily Note ---
PT Daily Note-Current Subjective Patient sitting in recliner and agrees to PT. Pain Numeric Pain Scale: 0-No Pain Location: No Pain Reported Mental Status Patient Orientation: Confused Attachments: IV Transfers Functional [place] Measure 0=Not Assessed/NA 4=Minimal Assistance 1=Total Assistance 5=Supervision or Setup 2=Maximal Assistance 6=Modified [place] 3=Moderate Assistance 7=Complete IndependenceIRFPAI Quality Coding Scale 6 Independent with activity with or without an assistive device 5 Patient requires set up or clean up by helper. Patient completes activity by themselves 4 Supervision or touching assist (CGA). [place] provide cues , steadying assist 3 The helper provides less than half the effort to complete the activity 2 The helper provides more than half the effort to complete the activity 1 Dependent. The helper does all the effort to complete an activity 7 Patient refused to complete or attempt activity 9 The patient did not perform the activity before the current illness or injury 88 Not attempted due to Medical conditions or safety concerns Transfers (B, C, W/C) (FIM): 1 Scootin Sit to/from Stand: 1 Sit to Stand (QC): 1 dependent assist x 2 with sit to stand for OT to cleanse bottom Weight Bearing Right Lower Extremity: Right Weight Bearing/Tolerated Left Lower Extremity: Left Weight Bearing/Tolerated Exercises Seated Therapy Exercises: Ankle pumps, Long arc quads Seated Reps: 15 (with static stretching secondary to knee flexion contractures) Assessment Patient is initially resistive with static stretching, however, is distracted by television and allows PT to perform PT Nursing Home Goals Long Chain Beamer Goals PT Nursing Home Goals Time Frame: Apr 25, 2018 Transfers (B,C,W/C) (FIM): 2 Sit to Lying (QC): 2 Rollin (follows cues to assist with rolling) Chair/[id number]-Vmonn Xfer(QC): 2 PT Plan Treatment/Plan Treatment Plan: Continue Plan of Care Treatment Plan: Bed Mobility, Education, Functional Activity Bea, Functional Strength, Safety, Therapeutic Exercise, Transfers Treatment Duration: Apr 25, 2018 Frequency: 6 times per week Estimated Hrs Per Day: .25 hour per day Patient and/or Family Agrees t: Yes Time/GCodes Time In: 1005 Time Out: 1020 Total Billed Treatment Time: 15 Total Billed Treatment 1 visit EX 15 min ELBA VILLATORO PT Apr 17, 2018 10:35
--- NOTE | 2018-04-17 14:05 | Progress Note-Hospitalist ---
Subjective HPI/CC On Admission Date Seen by Provider: Apr 17, 2018 Time Seen by Provider: 13:30 Subjective/Events-last exam Patient is sitting up eating enjoying his tater tot hamburger. He looks much stronger than yesterday and is very cheerful. He denies having any complaints Review of Systems Neurological: Weakness Objective Exam Vital Signs Vital Signs Date Time Temp Pulse Resp B/P (MAP) Pulse Ox O2 Delivery O2 Flow Rate FiO2 04/17/18 11:14 90 Room Air 04/17/18 09:00 2.00 04/17/18 05:25 98.4 64 15 120/59 (79) Capillary Refill : General Appearance: Chronically ill HEENT: Other Neck: Limited Range of Motion (Edentulous) Respiratory: Chest Non Tender, Lungs Clear, Normal Breath Sounds, No Accessory Muscle Use, No Respiratory Distress Cardiovascular: Regular Rate, Rhythm, No Gallop, No Murmur Gastrointestinal: Normal Bowel Sounds, Non Tender, Soft Rectal: Deferred Extremity: Normal Capillary Refill, Non Tender, No Pedal Edema Results/Procedures Lab Laboratory Tests 04/17/18 05:09 Patient resulted labs reviewed. Assessment/Plan Assessment and Plan Assess & Plan/Chief Complaint 1 sepsis- on Zosyn 2. Left lower lobe pneumonia 3. Parkinson's 4. Type II diabetes 5. BPH 6. 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 7. Weakness is improving Clinical Quality Measures DVT/VTE Risk/Contraindication: Risk Factor Score Per Nursin RUSH JJ MD Apr 17, 2018 14:05
[2018-04-17 17:11] VITALS: BP 97/55
[2018-04-17] MEDS: TAMSULOSIN 0.4 MG (FLOMAX) CAP PO SCH (20:35)
[2018-04-18] MEDS: NS IV 1000 ML 1,000 ML IV SCH ×3 (03:45→21:51)
[2018-04-18 06:00] VITALS: BP 141/64
[2018-04-18] MEDS: inSUlin ASPART (NovoLOG) 1 UNIT/0.01 ML (CHARGE PER UNIT) SC SCH ×4 (06:22→21:06)
[2018-04-18] MEDS: PIPERACILLIN/TAZOBACTAM 3.375 GM in NS (IVPB) 100 ML IV SCH ×3 (06:23→23:00)
[2018-04-18] MEDS: RT-ALBUTEROL SULF 2.5 MG/3 ML PRE-MIX VIAL INH SCH ×4 (06:25→19:02)
[2018-04-18] MEDS: SINEMET 25/100 (CARBIDOPA/LEVODOPA) TAB PO SCH ×2 (08:08→20:26)
[2018-04-18] MEDS: ENOXAPARIN 40 MG/0.4 ML (LOVENOX) SYR SC SCH (08:08)
--- NOTE | 2018-04-18 10:42 | Physical Therapy Daily Note ---
PT Daily Note-Current Subjective Patient up in recliner and agrees to PT. Pain Numeric Pain Scale: 5-Moderate Pain Location: Right, Left Location Body Site: Knee Pain Description: Pressure Comment: stretching Mental Status Patient Orientation: Person, Time, Situation Attachments: Oxygen Transfers Functional [place] Measure 0=Not Assessed/NA 4=Minimal Assistance 1=Total Assistance 5=Supervision or Setup 2=Maximal Assistance 6=Modified [place] 3=Moderate Assistance 7=Complete IndependenceIRFPAI Quality Coding Scale 6 Independent with activity with or without an assistive device 5 Patient requires set up or clean up by helper. Patient completes activity by themselves 4 Supervision or touching assist (CGA). [place] provide cues , steadying assist 3 The helper provides less than half the effort to complete the activity 2 The helper provides more than half the effort to complete the activity 1 Dependent. The helper does all the effort to complete an activity 7 Patient refused to complete or attempt activity 9 The patient did not perform the activity before the current illness or injury 88 Not attempted due to Medical conditions or safety concerns Weight Bearing Right Lower Extremity: Right Weight Bearing/Tolerated Left Lower Extremity: Left Weight Bearing/Tolerated Exercises Seated Therapy Exercises: Ankle pumps, Long arc quads Seated Reps: 15 (static stretching bilateral knee flexion contractures) Assessment Patient had sausage in his mouth upon PT arrival. During treatment, patient aspirated, coughed up his sausage. PT contacted RT, RN and requested an ST dysphagia evaluation. PT Altitude Chamber Technician Goals Long-Term Goals PT Long-Term Goals Time Frame: Apr 25, 2018 Transfers (B,C,W/C) (FIM): 2 Sit to Lying (QC): 2 Rollin (follows cues to assist with rolling) Chair/Xnu-jq-Ydkys Xfer(QC): 2 PT Plan Treatment/Plan Treatment Plan: Continue Plan of Care Treatment Plan: Bed Mobility, Education, Functional Activity Bea, Functional Strength, Safety, Therapeutic Exercise, Transfers Treatment Duration: Apr 25, 2018 Frequency: 6 times per week Estimated Hrs Per Day: .25 hour per day Patient and/or Family Agrees t: Yes Time/GCodes Time In: 1010 Time Out: 1025 Total Billed Treatment Time: 15 Total Billed Treatment 1 visit EX 15 min ELBA VILLATORO PT Apr 18, 2018 10:42
--- NOTE | 2018-04-18 11:13 | Occupational Ther Daily Note ---
OT Current Status-Daily Note Subjective Pt alert, sitting in recliner. Pt continues to cough from aspiration of small piece of sausage. Nrsg has place order for FUEL DOCK ATTENDANT mavis, per nrsg. Pt agrees to therapy. Mental Status/Objective Functional [place] Measure 0=Not Assessed/NA 4=Minimal Assistance 1=Total Assistance 5=Supervision or Setup 2=Maximal Assistance 6=Modified [place] 3=Moderate Assistance 7=Complete [place] ADL-Treatment Functional [place] Measure 0=Not Assessed/NA 4=Minimal Assistance 1=Total Assistance 5=Supervision or Setup 2=Maximal Assistance 6=Modified [place] 3=Moderate Assistance 7=Complete IndependenceIRFPAI Quality Coding Scale 6 Independent with activity with or without an assistive device 5 Patient requires set up or clean up by helper. Patient completes activity by themselves 4 Supervision or touching assist (CGA). [place] provide cues , steadying assist 3 The helper provides less than half the effort to complete the activity 2 The helper provides more than half the effort to complete the activity 1 Dependent. The helper does all the effort to complete an activity 7 Patient refused to complete or attempt activity 9 The patient did not perform the activity before the current illness or injury 88 Not attempted due to Medical conditions or safety concerns Other Treatment Pt easily distracted by TV. LEON went to turn off TV and pt stated "You better not!". Pt given medium resistance theraband, pt stated that he had used one before. LEON asked if pt could demonstrate any exercise, pt unable to demonstrate. Pt was able to complete each exercise with verbal directions and LEON counting reps. Pt stated that he was tired, but would try to do more. Then pt's coughing increased, unable to continue at this time. Pt sitting in recliner with call light/phone in reach, after therapy. All needs met. OT Short Term Goals Short Term Goals 1=Demonstrate adherence to instructed precautions during ADL tasks. 2=Patient will verbalize/demonstrate understanding of assistive devices/ modifications for ADL. 3=Patient will improve strength/tolerance for activity to enable patient to perform ADL's. OT Fuel Dock Attendant Goals Fuel Dock Attendant Goals Time Frame: Apr 30, 2018 Eating (FIM): 5 Eating (QC): 5 Groomin Oral Hygiene (QC): 3 Upper Body Dressing(FIM): 3 Transfers (B,C,W/C) (FIM): 2 Additional Goals: 1-Demonstrate ADL Tasks, 2-Verbalize Understanding, 3- ImproveStrength/Bea 1=Demonstrate adherence to instructed precautions during ADL tasks. 2=Patient will verbalize/demonstrate understanding of assistive devices/ modifications for ADL. 3=Patient will improve strength/tolerance for activity to enable patient to perform ADL's. OT Education/Plan Discharge Recommendations Plan/Recommendations: Continue POC Treatment Plan/Plan of Care Patient would benefit from OT for education, treatment and training to promote independence in ADL's, mobility, safety and/or upper extremity function for ADL' s. Plan of Care: ADL Retraining, Functional Mobility, UE Funct Exercise/Act Treatment Duration: Apr 30, 2018 Frequency: 5 times per week Estimated Hrs Per Day: .25 hour per day Agreement: Yes Rehab Potential: Guarded Time/GCodes Start Time: 10:30 Stop Time: 10:50 Total Time Billed (hr/min): 20 Billed Treatment Time 1 visit-EX 1 (20 min) LG FISH Apr 18, 2018 11:13
--- NOTE | 2018-04-18 13:40 | ST Dysphagia Evaluation ---
Speech Evaluation-General Medical Diagnosis Pneumonia/sepsis Onset Date: Apr 13, 2018 Therapy Diagnosis Therapy Diagnosis: Dysphagia Precautions Precautions: Aspiration Precautions/Isolations: Fall Prevention, Standard Precautions Medical History Pertinent Medical History: Arthritis, CAD, DM, Dementia, HTN, DE, Parkinson's, Renal Insufficiency Parkinson's, dementia Current History Pt was observed by PT aspirating on sausage and then coughed it out. Reviewed History: Yes Social History Home: [facility] Current Living Status: Speech PLF/Current-Dysphagia Prior Level of Function Pt is very confused. PLOF is unknown at this time. Subjective Pt up in chair. Pleasant and cooperative. Gets distracted easily by his TV. Oral Motor Skills Dentition: Edentalous Current Food Consistancy: Regular, Thin Liquids Ability to Follow Directions: Fair Voice Voice Phonatory-Based Quality: Normal Voice Pitch: Normal Voice Loudness: Normal Face Facial Symmetry: Symmetrical Oral-Facial Assessment Labial Seal Description: Normal Lingual Protrusion: Normal Dysphagia Evaluation Consistencies Presented: Thin Liquid, Mechanical Soft, Pureed appeared functional appeared functional. Dietary Recommendations: Mechanical altered Liquid Recommendations: Thin Swallowing Precautions: Sitting Upright 90 Degrees Dysphagia Evaluation Summary Pt appeared to tolerate altered textures presented during the evaluation. No s/ s of aspiration observed. Barriers to Learning Confusion Speech Short Term Goals Short Term Goals Short Term Goals No STG goals are necessary as pt is not a candidate for skilled ST. Speech Animal Care Giver Goals Animal Care Giver Goals No LTG are established as pt is not a candidate for skilled ST. Speech-Plan Patient/Family Goals Patient/Family Goals: Pt unable to state due to dementia. Treatment Plan Speech Therapy Treatment Plan: Discontinue ST (Pt was not picked up for skilled ST.) Eval only. Frequency: Modified Program (IRF) (No ST warrented) Estimated Hrs Per Day: Other (Zero) Rehab Potential: Poor Time Speech Therapy Time In: 13:10 Speech Therapy Time Out: 13:25 Total Billed Time: 15 Billed Treatment Time 1, SARAHY Jeong Apr 18, 2018 13:40
[2018-04-18 17:15] VITALS: BP 152/62
[2018-04-18] MEDS: TAMSULOSIN 0.4 MG (FLOMAX) CAP PO SCH (20:26)
[2018-04-19] MEDS: inSUlin ASPART (NovoLOG) 1 UNIT/0.01 ML (CHARGE PER UNIT) SC SCH ×4 (05:02→20:13)
[2018-04-19] MEDS: PIPERACILLIN/TAZOBACTAM 3.375 GM in NS (IVPB) 100 ML IV SCH ×3 (06:07→23:04)
[2018-04-19] MEDS: RT-ALBUTEROL SULF 2.5 MG/3 ML PRE-MIX VIAL INH SCH ×4 (07:34→19:05)
[2018-04-19 07:38] VITALS: BP 152/62
[2018-04-19 08:00] VITALS: BP 135/65
[2018-04-19] MEDS: SINEMET 25/100 (CARBIDOPA/LEVODOPA) TAB PO SCH ×2 (08:23→20:13)
[2018-04-19] MEDS: ENOXAPARIN 40 MG/0.4 ML (LOVENOX) SYR SC SCH (08:23)
--- NOTE | 2018-04-19 09:29 | Progress Note-Hospitalist ---
Subjective HPI/CC On Admission Date Seen by Provider: Apr 19, 2018 Time Seen by Provider: 08:55 Subjective/Events-last exam Evidently patient was up all night last night and now is sleeping. He has no complaints is and doesn't interact with me very well this morning. He was seen to aspirate on a piece of sausage yesterday swallowing and dysphagia studies do not show that he is at risk for aspiration but we do continue mechanical soft diet. Review of Systems Neurological: Confusion Objective Exam Vital Signs Vital Signs Date Time Temp Pulse Resp B/P (MAP) Pulse Ox O2 Delivery O2 Flow Rate FiO2 04/19/18 08:00 96 Nasal Cannula 2.00 04/19/18 08:00 99.5 70 28 135/65 (88) 04/19/18 07:38 28 Capillary Refill : General Appearance: No Apparent Distress, Chronically ill HEENT: Other Neck: Non Tender, Limited Range of Motion Respiratory: Chest Non Tender, Lungs Clear, Normal Breath Sounds, No Accessory Muscle Use, No Respiratory Distress Cardiovascular: Regular Rate, Rhythm, No Edema, No Gallop, No JVD, Systolic Murmur Gastrointestinal: Normal Bowel Sounds, No Organomegaly, Non Tender, Soft Rectal: Deferred Extremity: Normal Inspection, Non Tender, No Pedal Edema Neurologic/Psychiatric: Other Skin: Normal Color, Warm/Dry Lymphatic: No Adenopathy Results/Procedures Lab Patient resulted labs reviewed. Assessment/Plan Assessment and Plan Assess & Plan/Chief Complaint 1 sepsis- on Zosyn 2. Left lower lobe pneumonia 3. Parkinson's 4. Type II diabetes-good control 5. BPH 6. 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 7. Weakness is improving 8. Will check labs in the morning and plan is for discharge to his facility on Saturday Clinical Quality Measures DVT/VTE Risk/Contraindication: Risk Factor Score Per Nursin RUSH JJ MD Apr 19, 2018 09:29
[2018-04-19] MEDS: NS IV 1000 ML 1,000 ML IV SCH (11:11)
[2018-04-19 17:46] VITALS: BP 150/70
[2018-04-19] MEDS: TAMSULOSIN 0.4 MG (FLOMAX) CAP PO SCH (20:13)
[2018-04-20] MEDS: NS IV 1000 ML 1,000 ML IV SCH ×2 (03:08→16:53)
[2018-04-20 05:45] LABS: BASOPHILS # (AUTO) 0.1 10^3/uL (0.0-0.1); BASOPHILS % (AUTO) 1 % (0-10); EOSINOPHILS # (AUTO) 0.5 10^3/uL (0.0-0.3); EOSINOPHILS % (AUTO) 4 % (0-10); HEMATOCRIT 32 % (40-54); HEMOGLOBIN 10.8 G/DL (13.3-17.7); LYMPHOCYTES # (AUTO) 1.3 X 10^3 (1.0-4.0); LYMPHOCYTES % (AUTO) 11 % (12-44); MEAN CORPUSCULAR HEMOGLOBIN 29 PG (25-34); MEAN CORPUSCULAR HGB CONC 33 G/DL (32-36); MEAN CORPUSCULAR VOLUME 87 FL (80-99); MEAN PLATELET VOLUME 10.2 FL (7.4-10.4); MONOCYTES # (AUTO) 1.6 X 10^3 (0.0-1.0); MONOCYTES % (AUTO) 14 % (0-12); NEUTROPHILS # (AUTO) 8.3 X 10^3 (1.8-7.8); NEUTROPHILS % (AUTO) 71 % (42-75); PLATELET COUNT 313 10^3/uL (130-400); RED BLOOD COUNT 3.73 10^6/uL (4.35-5.85); RED CELL DISTRIBUTION WIDTH 17.9 % (10.0-14.5); WHITE BLOOD COUNT 11.7 10^3/uL (4.3-11.0)
[2018-04-20 05:56] VITALS: BP 151/66
[2018-04-20 05:58] LABS: ALANINE AMINOTRANSFERASE 6 U/L (0-55); ALBUMIN 2.6 GM/DL (3.2-4.5); ALKALINE PHOSPHATASE 122 U/L (40-136); BILIRUBIN,TOTAL 0.5 MG/DL (0.1-1.0); BUN/CREATININE RATIO 8; CALCIUM 8.2 MG/DL (8.5-10.1); CARBON DIOXIDE 20 MMOL/L (21-32); CHLORIDE 116 MMOL/L (98-107); CREATININE SERUM 0.77 MG/DL (0.60-1.30); GFR ESTIMATED > 60; GLUCOSE 114 MG/DL (70-105); SODIUM 144 MMOL/L (135-145); TOTAL PROTEIN 5.6 GM/DL (6.4-8.2)
[2018-04-20 06:11] LABS: ANISOCYTOSIS SLIGHT; BAND NEUTROPHILS 3 %; EOSINOPHILS % (MANUAL) 4 %; LYMPHOCYTES % (MANUAL) 11 %; METAMYELOCYTES % 3 %; MONOCYTES % (MANUAL) 13 %; NEUTROPHILS % (MANUAL) 66 %; POIKILOCYTOSIS SLIGHT; POLYCHROMASIA SLIGHT; SPHEROCYTES SLIGHT
[2018-04-20] MEDS: inSUlin ASPART (NovoLOG) 1 UNIT/0.01 ML (CHARGE PER UNIT) SC SCH ×4 (06:14→20:37)
[2018-04-20] MEDS: RT-ALBUTEROL SULF 2.5 MG/3 ML PRE-MIX VIAL INH SCH ×4 (07:15→18:59)
[2018-04-20] MEDS: SINEMET 25/100 (CARBIDOPA/LEVODOPA) TAB PO SCH ×2 (08:37→20:37)
[2018-04-20] MEDS: ENOXAPARIN 40 MG/0.4 ML (LOVENOX) SYR SC SCH (08:38)
[2018-04-20 17:27] VITALS: BP 163/75
[2018-04-20] MEDS: TAMSULOSIN 0.4 MG (FLOMAX) CAP PO SCH (20:37)
[2018-04-21] MEDS: inSUlin ASPART (NovoLOG) 1 UNIT/0.01 ML (CHARGE PER UNIT) SC SCH ×2 (05:58→11:01)
[2018-04-21 06:00] VITALS: BP 183/81
[2018-04-21] MEDS: NS IV 1000 ML 1,000 ML IV SCH (06:23)
[2018-04-21] MEDS: RT-ALBUTEROL SULF 2.5 MG/3 ML PRE-MIX VIAL INH SCH ×2 (07:19→10:56)
[2018-04-21] MEDS: ENOXAPARIN 40 MG/0.4 ML (LOVENOX) SYR SC SCH (07:56)
[2018-04-21] MEDS: SINEMET 25/100 (CARBIDOPA/LEVODOPA) TAB PO SCH (07:56)
--- NOTE | 2018-04-21 08:18 | Discharge Inst-Skilled Nursing ---
Discharge Inst-Skilled NF Patient Instructions Patient Problems: Pneumonia, Parkinson's Disease Consult/Follow Up/Orders Follow Up Appt.: [address] Cristi Don NF Admit to: [facility] Certification (SNF) I certify that SNF services are required to be given on an inpatient basis because of the above named patient's need for long-term care on a continuing basis for the conditions(s) for which he/she was receiving inpatient hospital services prior to his/her transfer to the SNF. Nursing Home Facility Order: Nursing Services, Tilt Wall Supervisor-Evaluate & Treat, Physical Therapy-Evaluate & Treat, Speech Language-Evaluate & Treat Discharge Diet: Semi-Solid Diet Daily Activity as Tolerated: Yes New & Resume Previous Orders Chace Puente Apr 21, 2018 08:17 CHACE PUENTE MD Apr 21, 2018 08:18
--- NOTE | 2018-04-21 08:21 | Discharge Summary-Hospitalist ---
Diagnosis/Chief Complaint Date of Admission Apr 16, 2018 at 11:35 am Date of Discharge Discharge Date: Apr 21, 2018 Admission Diagnosis PNA Discharge Diagnosis Pneumonia Parkinson's Disease Discharge Summary Discharge Physical Exam Allergies: Coded Allergies: No Known Drug Allergies (Verified , 01/19/16) Vitals & I&Os Vital Signs Date Time Temp Pulse Resp B/P (MAP) Pulse Ox O2 Delivery O2 Flow Rate FiO2 04/21/18 10:56 91 Nasal Cannula 3.00 04/21/18 06:00 98.0 73 16 183/81 (115) 04/19/18 07:38 28 General Appearance: Alert, Cooperative Respiratory: Clear to Auscultation Cardiovascular: Regular Rate Hospital Course Pt was admitted to swing bed for continued IV abx and for pneumonia. He responded well and completed his antibiotics on 03/31 He received PT/OT as well and continued to improve. He was discharged back to his NH to continue PT/OT. Labs (last 24 hrs) Laboratory Tests 04/20/18 16:18: Glucometer 142H 04/20/18 20:36: Glucometer 97 04/21/18 05:57: Glucometer 95 04/21/18 10:28: Glucometer 114H Patient resulted labs reviewed. Pending Labs Laboratory Tests 04/21/18 05:57: Glucometer 95 04/21/18 10:28: Glucometer 114 Discussion & Recommendations Discharge Planning: >30 minutes discharge planning Fasting blood glucose this morning was 95 without any medications. I stopped his diabetes medications due to this. Discharge Home Medications: Active Scripts Active Reported Clobetasol Propionate 15 Gm Cream..g. 1 Gm TP BID APPLY SPARINGLY NEEDED FOR BED SORES Biofreeze (Menthol) 118 Ml Gel..ml. 1 Ml TP Q8H PRN Triamcinolone Acetonide 0.1% Ointment (Triamcinolone Acet) 15 Gm Oint TP BID PRN Carbidopa-Levodopa 25-100 Tab (Carbidopa/Levodopa) 1 Each Tablet 1 Tab PO BID Mylanta Suspension (Al Hydrox/Mg Hydrox/Simethicone) 30 Ml Oral.susp 30 Ml PO Q6H PRN Mometasone Furoate 45 Gm Cream..g. 1 Gm TP BID PRN APPLY TO FACE, ELBOWS, BUTTOCKS NEEDED TWICE DAILY FOR BED SORES Tamsulosin HCl 0.4 Mg Cap.er.24h 0.4 Mg PO HS Milk of Magnesia (Magnesium Hydroxide) 400 Mg/5 Ml Oral.susp 30 Ml PO DAILY PRN Cyanocobalamin 1,000 Mcg/Ml Vial 1,000 Mcg IM MONTHLY RECEIVES ON THE OF EACH MONTH Instructions to patient/family Please see electronic discharge instructions given to patient. Clinical Quality Measures DVT/VTE Risk/Contraindication: Risk Factor Score Per Nursin CHACE GARZON MD Apr 21, 2018 08:21
--- NOTE | 2018-04-21 10:18 | Therapy Team Discharge Summary ---
Therapy Discharge Summary Discharge Recommendations Date of Discharge Therapy D/C Recommendations: 24 hr Supervision Physical Therapy Patient to dismiss back to DC for continued care on this date. Patient continues to require dependent assist with all mobility/transfers, etc. Noted bilateral knee flexion contractures PLOF with no change. Patient continues to be very resistive with all mobility/ROM/transfers. PT to continue at DC. Occupational Therapy Decreased Activ Tolerance, Decreased UE Strength, Dependent Transfers, Impaired Bed Mobility, Impaired Cognition, Impaired Coordination, Impaired Funct Balance , Impaired I ADL's, Impaired Self-Care Skills, Restricted Funct UE ROM PT Care Home Goals Care Home Goals PT Reinforcing Iron Worker Helper Goals Time Frame: Apr 25, 2018 Transfers (B,C,W/C) (FIM): 2 Sit to Lying (QC): 2 Rollin (follows cues to assist with rolling) Chair/Czj-gy-Zcepy Xfer(QC): 2 OT Reinforcing Iron Worker Helper Goals Reinforcing Iron Worker Helper Goals Time Frame: Apr 30, 2018 Eating (FIM): 5 Eating (QC): 5 Groomin Oral Hygiene (QC): 3 Upper Body Dressing(FIM): 3 Transfers (B,C,W/C) (FIM): 2 Additional Goals: 1-Demonstrate ADL Tasks, 2-Verbalize Understanding, 3- ImproveStrength/Bea 1=Demonstrate adherence to instructed precautions during ADL tasks. 2=Patient will verbalize/demonstrate understanding of assistive devices/ modifications for ADL. 3=Patient will improve strength/tolerance for activity to enable patient to perform ADL's. Speech Reinforcing Iron Worker Helper Goals Reinforcing Iron Worker Helper Goals No LTG are established as pt is not a candidate for skilled ELBA JOLLY PT Apr 21, 2018 10:18
[2018-04-21 13:27] VITALS: BP 183/81
== END 2018-04-21 13:28 | DRG 195 ==
LOC: 4TH 11:35
PROVIDERS: ADMIT Internal Medicine; ATTEND Internal Medicine
DX: J18.9 Pneumonia, unspecified organism (principal); E11.9 Type 2 diabetes mellitus without complications; G20 Parkinson's disease; F02.80 Dementia in other diseases classified elsewhere, unspecified severity, without behavioral disturbance, psychotic disturbance, mood disturbance, and anxiety; N40.0 Benign prostatic hyperplasia without lower urinary tract symptoms; R53.1 Weakness; Z66 Do not resuscitate; T17.920A Food in respiratory tract, part unspecified causing asphyxiation, initial encounter
CPT/HCPCS: 36415; 80053; 82962; 85007; 85025; 85027; 94640; 94664; 94760; 94761

== ENCOUNTER → 2018-12-20 | Outpatient (CLI) | payer MEDICARE ==
[~2018-12-20] MED LIST changes: +METF-397 PO; -METF500T5 PO
== END ==
LOC: LABNPT 09:33
PROVIDERS: ATTEND Internal Medicine
DX: J10.1 Influenza due to other identified influenza virus with other respiratory manifestations (principal)
CPT/HCPCS: 87804

== ENCOUNTER → 2019-08-18 | Outpatient (CLI) | payer MEDICARE | LOC: WOUNDCARE 08:09 | PROVIDERS: ATTEND Nurse Practitioner | DX: E11.628 Type 2 diabetes mellitus with other skin complications (principal); L89.313 Pressure ulcer of right buttock, stage 3 | CPT/HCPCS: 11042 ==

== ENCOUNTER → 2019-08-24 | Outpatient (CLI) | payer MEDICARE | LOC: WOUNDCARE 14:25 | PROVIDERS: ATTEND Surgery | DX: E11.628 Type 2 diabetes mellitus with other skin complications (principal); L89.313 Pressure ulcer of right buttock, stage 3 | CPT/HCPCS: 99212 ==